=== PATIENT | female | born 1945 | race Caucasian/White ===

== ENCOUNTER → 2016-10-11 | Outpatient (CLI) | payer BC, OTHER ==
[~2016-10-11] MED LIST: CHOL1TAB42 PO; FOLI1TAB8 PO; INSPMPHMLG; LEVO100T7 PO; SENNTAB23 PO
[2016-10-11 14:31] LABS: MEAN CELL VOLUME 86.4 fL (80-100); MEAN CORPUSCULAR HEMOGLOBIN 28.5 pg (25-34); MEAN PLATELET VOLUME 11.2 fL (7.4-10.4); PLATELET COUNT 250 K/uL (130-400); RED BLOOD COUNT 4.28 M/uL (4.2-5.4); WHITE BLOOD COUNT 6.38 K/uL (4.8-10.8)
[2016-10-11 14:51] LABS: URINE APPEARANCE CLEAR (CLEAR); URINE BILIRUBIN NEG (NEG); URINE COLOR YELLOW; URINE NITRITE NEG (NEG); URINE SPECIFIC GRAVITY 1.008 (1.000-1.030); UROBILINOGEN NEG (NEG)
[2016-10-11 14:57] LABS: MANUAL MICROSCOPIC REQUIRED? NO; REVIEW REQ? NO
[2016-10-11 15:02] LABS: URINE PROTIEN/CREAT RATIO 0.1 (0-0.2); URINE TOTAL PROTEIN 12.4 mg/dl (0-11.9)
[2016-10-11 15:16] LABS: BLOOD UREA NITROGEN 31 mg/dl (7-18); BUN/CREATININE RATIO 18.2 (10-20); CALCIUM 8.3 mg/dl (8.5-10.1); CARBON DIOXIDE 26 mmol/L (21-32); CHLORIDE 99 mmol/L (98-107); GLUCOSE 153 mg/dl (70-99); POTASSIUM 4.2 mmol/L (3.5-5.1); SODIUM 136 mmol/L (136-145)
[2016-10-11 15:17] LABS: PHOSPHORUS 3.7 mg/dl (2.5-4.9)
== END | disposition home or self-care (01) ==
LOC: C.LAB1850 13:32
PROVIDERS: ATTEND Internal Medicine Nephrology
DX: E55.9 Vitamin D deficiency, unspecified (principal); R80.9 Proteinuria, unspecified; I12.9 Hypertensive chronic kidney disease with stage 1 through stage 4 chronic kidney disease, or unspecified chronic kidney disease; N18.3 Chronic kidney disease, stage 3 (moderate)

== ENCOUNTER → 2017-04-07 | Outpatient (CLI) | payer BC, OTHER ==
[~2017-04-07] MED LIST changes: +FOLI1TAB7 PO; -FOLI1TAB8 PO
[2017-04-07 12:04] LABS: HEMATOCRIT 36.8 % (37-47); MEAN CELL VOLUME 89.3 fL (80-100); MEAN CORPUSCULAR HEMOGLOBIN 29.1 pg (25-34); MEAN CORPUSCULAR HGB CONC 32.6 g/dl (32-36); MEAN PLATELET VOLUME 11.3 fL (7.4-10.4); PLATELET COUNT 268 K/uL (130-400); RED BLOOD COUNT 4.12 M/uL (4.2-5.4); WHITE BLOOD COUNT 6.09 K/uL (4.8-10.8)
[2017-04-07 12:09] LABS: URINE APPEARANCE CLEAR (CLEAR); URINE BILIRUBIN NEG (NEG); URINE COLOR YELLOW; URINE NITRITE NEG (NEG); URINE SPECIFIC GRAVITY 1.035 (1.000-1.030); UROBILINOGEN NEG (NEG)
[2017-04-07 12:22] LABS: MANUAL MICROSCOPIC REQUIRED? NO; REVIEW REQ? NO
[2017-04-07 12:32] LABS: URINE PROTIEN/CREAT RATIO 0.1 (0-0.2)
[2017-04-07 12:33] LABS: BLOOD UREA NITROGEN 34 mg/dl (7-18); BUN/CREATININE RATIO 22.3 (10-20); CALCIUM 8.5 mg/dl (8.5-10.1); CARBON DIOXIDE 26 mmol/L (21-32); CHLORIDE 101 mmol/L (98-107); GLUCOSE 410 mg/dl (70-99); PHOSPHORUS 4.7 mg/dl (2.5-4.9); POTASSIUM 4.7 mmol/L (3.5-5.1); SODIUM 134 mmol/L (136-145)
[2017-04-07 12:47] LABS: BETA-HYDROXYBUTYRATE 1.56 mg/dL (0.2-2.81)
== END | disposition home or self-care (01) ==
LOC: C.LAB1850 10:16
PROVIDERS: ATTEND Internal Medicine Nephrology
DX: E55.9 Vitamin D deficiency, unspecified (principal); R80.9 Proteinuria, unspecified; N18.3 Chronic kidney disease, stage 3 (moderate); I12.9 Hypertensive chronic kidney disease with stage 1 through stage 4 chronic kidney disease, or unspecified chronic kidney disease

== ENCOUNTER → 2017-07-13 | Outpatient (CLI) | payer BC, OTHER ==
--- NOTE | 2017-07-14 08:29 | MAMMOGRAPHY REPORT ---
UNILATERAL LEFT DIGITAL SCREENING MAMMOGRAM TOMOSYNTHESIS WITH CAD: 07/13/2017 CLINICAL HISTORY: Asymptomatic. Personal history of breast cancer. TECHNIQUE: Breast tomosynthesis in addition to standard 2D mammography was performed. Current study was also evaluated with a Computer Aided Detection (CAD) system. COMPARISON: Comparison is made to exams dated: 07/05/2016 mammogram, 07/01/2015 mammogram, 06/30/2014 m ammogram, 06/28/2013 mammogram, 06/26/2012 mammogram, and 06/24/2011 mammogram - [facility] enter. BREAST COMPOSITION: There are scattered areas of fibroglandular density in the left breast. FINDINGS: There are no suspicious masses, calcifications, or areas of architectural distortion noted in the left breast. There has been no significant interval change compared to prior exams. Scatter ed benign-appearing calcifications are stable. IMPRESSION: ACR BI-RADS CATEGORY 2: BENIGN There is no mammographic evidence of malignancy in the left breast. A 1 year screening mammogram is r ecommended. The patient will receive written notification of the results. Approximately 10% of breast cancers are not detected with mammography. A negative mammographic report should not delay biopsy if a clinically suggestive mass is present. Mary Elliott M.D. ah/:07/13/2017 15:12:37 Accounts Payable Or Receivable Clerk: Patience DIAZ)(), [facility] letter sent: Normal 1/2 BI-RADS Code: ACR BI-RADS Category 2: Benign
== END | disposition home or self-care (01) ==
LOC: C.MAMM 14:41
PROVIDERS: ATTEND Family Medicine
DX: Z12.31 Encounter for screening mammogram for malignant neoplasm of breast (principal); Z85.3 Personal history of malignant neoplasm of breast

== ENCOUNTER → 2017-10-11 | Outpatient (CLI) | payer OTHER ==
[~2017-10-11] MED LIST changes: +CIPR-255 PO; -FOLI1TAB7 PO; +FOLI1TAB8 PO; +LEVO100T PO; +METR-163 PO
[2017-10-11 14:36] LABS: HEMATOCRIT 35.4 % (37-47); HEMOGLOBIN 11.8 g/dL (12.0-16.0); MEAN CELL VOLUME 88.9 fL (80-100); MEAN CORPUSCULAR HEMOGLOBIN 29.6 pg (25-34); MEAN CORPUSCULAR HGB CONC 33.3 g/dl (32-36); MEAN PLATELET VOLUME 11.5 fL (7.4-10.4); PLATELET COUNT 300 K/uL (130-400); RED CELL DISTRIBUTION WIDTH SD 42.2 fL (36.4-46.3)
[2017-10-11 15:58] LABS: ALBUMIN 3.5 gm/dl (3.4-5.0); BLOOD UREA NITROGEN 32 mg/dl (7-18); CALCIUM 8.3 mg/dl (8.5-10.1); CARBON DIOXIDE 27 mmol/L (21-32); CREATININE 1.38 mg/dl (0.60-1.20); GLUCOSE 174 mg/dl (70-99); POTASSIUM 4.2 mmol/L (3.5-5.1); SODIUM 135 mmol/L (136-145)
[2017-10-11 16:01] LABS: PHOSPHORUS 3.9 mg/dl (2.5-4.9)
== END | disposition home or self-care (01) ==
LOC: C.LAB1850 12:41
PROVIDERS: ATTEND Internal Medicine Nephrology
DX: E55.9 Vitamin D deficiency, unspecified (principal); I12.9 Hypertensive chronic kidney disease with stage 1 through stage 4 chronic kidney disease, or unspecified chronic kidney disease; E11.22 Type 2 diabetes mellitus with diabetic chronic kidney disease; N18.3 Chronic kidney disease, stage 3 (moderate); R31.9 Hematuria, unspecified; R80.9 Proteinuria, unspecified

== ENCOUNTER 2018-05-31 14:34 | Emergency (ER) | payer OTHER ==
[~2018-05-31] VITALS: Ht 162.6 cm; Wt 67.5 kg
[~2018-05-31 14:34] MED LIST changes: -CIPR-255 PO; -LEVO100T PO; -METR-163 PO
[2018-05-31 14:41] VITALS: TEMP 36.8; Ht 162.6 cm; Wt 67.5 kg
[2018-05-31] MEDS ORDERED: ONDANSETRON 4MG OD TAB PO STA (15:48)
--- NOTE | 2018-05-31 15:54 | EMERGENCY ROOM VISIT NOTE ---
History First contact with patient: 15:22 Chief Complaint: ABDOMINAL PAIN Stated Complaint: LOWER ABDOMINAL PAIN,NAUSEA,DIARRHEA FOR 11 DAYS History of Present Illness The patient is a 72 year old female who presents to the Emergency Room with complaints of non bloody diarrhea x 11 days. She was at a scientologist overnight function at [facility] approx 3 weeks ago. When she returned home that's when her loose stools started. She reports having 3 bowel movements per day. She denies any recent antibiotic use. No travel outside of [place]. She hasn't been eating any new foods. She has been excluding diary at the advice of her PCP. She presents to the ER for nausea which she interpreted as a worsening of her condition. She has started eating regular meals on Monday and has experienced a worsening of of loose stools. She did have outpatient stool testing for C Diff . Giardia and Salmonella that was negative. PMHx: C Diff (resolved), DM1, Breast CA. PSHx: Cholecystectomy. ROS: Tired, nauseous, no fevers, no chills, no significant abdominal pain, no vomiting, no hemoptysis. Review of Systems See HPI for pertinent positives and negatives. A total of ten systems were reviewed and were otherwise negative. Constitutional: No fever, No chills, No weight loss ENT: No hearing loss Respiratory: No cough, No sputum, No shortness of breath, No dyspnea on exertion Cardiovascular: No chest pain Abdomen: + diarrhea, No pain, No nausea, No vomiting, No constipation Genitourinary - Female: No dysuria, No urinary frequency, No urinary urgency , No urinary incontinence, No urinary retention Neurologic: No memory loss Endocrine: No fatigue Past Medical/Surgical History Medical Problems: (1) Breast cancer (2) CKD (chronic kidney disease), stage III (3) DKA (diabetic ketoacidoses) (4) DM type 1 (diabetes mellitus, type 1) (5) Hypothyroidism (6) Osteoporosis (7) Pubic bone fracture (8) Sepsis (9) Vitamin D deficiency Surgical Problems: (1) H/O section (2) H/O umbilical hernia repair (3) S/P cataract surgery (4) S/P laparoscopic cholecystectomy (5) S/P mastectomy Family History Diabetes mellitus SISTER (type 1) SON (type 1) AUNT FH: COPD (chronic obstructive pulmonary disease) FATHER FH: cancer FH: gallbladder disease Hypertension Social History Smoking Status: Never Smoker Alcohol Use: none Drug Use: none Marital Status: Housing Status: lives with family Occupation Status: retired Current/Historical Medications Scheduled Cholecalciferol (Vitamin D), 1 TAB PO QAM Ciprofloxacin Hcl (Cipro), 500 MG PO BID Folic Acid (Folvite), 1 MG PO QAM Insulin Human Lispro (Insulin Humalog Pump ), 1 EA N/A UD Levothyroxine Sodium (Levothyroxine Sodium), 1 TAB PO 6XWK Levothyroxine Sodium (Synthroid), 50 MCG PO WK Metronidazole (Flagyl), 500 MG PO TID Sennosides-Docusate Sodium (Stool Softener), 1 TAB PO QAM Physical Exam Vital Signs Date Time Temp Pulse Resp B/P (MAP) Pulse Ox O2 Delivery O2 Flow Rate FiO2 05/31/18 18:30 82 17 122/64 99 Room Air 05/31/18 16:55 79 18 122/64 98 Room Air 05/31/18 14:41 36.8 82 20 168/82 99 Room Air Physical Exam Gen: No acute distress. HEENT: Head - normocephalic and atraumatic. Pupils are equal, round, and reactive to light. Extraocular eye muscles are intact and sclera are anicteric. Ears - bilaterally patent canals with noninjected tympanic membranes and no evidence of hemotympanum. Nose - moist nasal mucosa without discharge. Mouth - moist buccal mucosa. Oropharynx is nonerythematous and there is no tonsillar exudate or edema noted. Neck: Supple; no JVD, nuchal rigidity, cervical lymphadenopathy, or auscultated bruits. Heart: Regular rate and rhythm. There is a normal S1 and S2 with no murmurs, clicks, or gallops appreciated. Lungs: Clear to auscultation bilaterally with no wheezes, rales, or rhonchi. Abdomen: Soft, completely nontender, nondistended, with good bowel sounds. There are no palpable pulsatile masses or hepatosplenomegaly. There is no guarding, rigidity. There may be slight rebound in the LLQ. There is a Glucometer attached to the subcutaneous space. Extremities: No evidence of cyanosis, clubbing, or edema. There are easily palpable peripheral pulses. Neuro:The patient is awake and alert, oriented to day, time, and place. Muscle strength is 5/5 in all 4 extremities. The patient has equal research program manager strength and equal pedal push and pull. There are no cerebellar signs. Medical Decision & Procedures ER Provider Diagnostic Interpretation: ABD/PELVIS IV AND ORAL CONT CLINICAL HISTORY: 72 years-old Female presenting with Diarrhea x 11 days, ?rebound tenderness in LLQ. TECHNIQUE: Multidetector CT of the abdomen and pelvis was performed after the administration of oral and intravenous contrast. IV contrast: 117 mL of Optiray 320. A dose lowering technique was used consistent with the principles of ALARA (as low as reasonably achievable). COMPARISON: 03/26/2016. CT DOSE (mGy.cm): The estimated cumulative dose is 622.38 mGy.cm. FINDINGS: Vb Net Developer topogram: Cholecystectomy clips. Lung bases: Mosaic attenuation suggest small airways disease. Minimal dependent changes likely atelectasis. Normal heart size. No pericardial or pleural effusion. Liver: Normal morphology. No liver lesion. Patent hepatic vasculature. Biliary: Moderate biliary ductal prominence likely a reservoir effect in the post cholecystectomy state. Gallbladder surgically absent. Pancreas: Moderate parenchymal atrophy. Spleen: Parenchymal calcification suggest a history of granulomatous infection. Splenule noted. Adrenal glands: Normal. Kidneys and ureters: Few subcentimeter well-defined hypodensities due to small to characterize but likely cysts. No nephrolithiasis. No hydronephrosis. Excreted contrast noted in the calyces bilaterally. Ureters nondistended. Bladder: Normal. Pelvic organs: Uterus and ovaries normal. Bowel: Circumferential wall thickening of the rectum with mucosal hyperenhancement. Wall thickening extends proximally to the cecum though this may not be in a contiguous manner with sparing of the proximal sigmoid and mid transverse colon. Prominence of the vasa recta may suggest chronicity. The appendix is normal. No bowel obstruction. Terminal ileum normal. No gross evidence of small bowel wall thickening. No perienteric or pericolonic inflammatory change. Small hiatal hernia with gastroesophageal reflux suggested. Peritoneal cavity: No free fluid or intraperitoneal gas. Lymph nodes: No enlarged lymph nodes in the abdomen or pelvis. Vasculature: Atherosclerosis of the normal caliber abdominal aorta. IVC patent. Abdominal wall: Small fat-containing umbilical hernia. The patient may be status post right mastectomy. Musculoskeletal: Degenerative changes of the spine. Osteopenia. Degenerative changes of the sacroiliac joints. IMPRESSION: 1. Circumferential wall thickening and mucosal hyperenhancement of nearly the entire colon. This suggests an extensive inflammatory or infectious colitis. Prominence of the vasa recta could suggest chronicity. Correlate for a history of inflammatory bowel disease. 2. Cholecystectomy. Laboratory Results 05/31/18 15:50 Red Blood Count 3.99, Mean Corpuscular Volume 88.5, Mean Corpuscular Hemoglobin 29.1, Mean Corpuscular Hemoglobin Concent 32.9, Mean Platelet Volume 10.7, Neutrophils (%) (Auto) 60.2, Lymphocytes (%) (Auto) 25.6, Monocytes (%) (Auto) 10.1, Eosinophils (%) (Auto) 3.6, Basophils (%) (Auto) 0.5, Neutrophils # (Auto ) 3.81, Lymphocytes # (Auto) 1.62, Monocytes # (Auto) 0.64, Eosinophils # (Auto ) 0.23, Basophils # (Auto) 0.03 05/31/18 15:50 Test 05/31/18 15:50 05/31/18 17:25 White Blood Count 6.33 K/uL (4.8-10.8) Red Blood Count 3.99 M/uL (4.2-5.4) Hemoglobin 11.6 g/dL (12.0-16.0) Hematocrit 35.3 % (37-47) Mean Corpuscular Volume 88.5 fL (80-100) Mean Corpuscular Hemoglobin 29.1 pg (25-34) Mean Corpuscular Hemoglobin Concent 32.9 g/dl (32-36) Platelet Count 285 K/uL (130-400) Mean Platelet Volume 10.7 fL (7.4-10.4) Neutrophils (%) (Auto) 60.2 % Lymphocytes (%) (Auto) 25.6 % Monocytes (%) (Auto) 10.1 % Eosinophils (%) (Auto) 3.6 % Basophils (%) (Auto) 0.5 % Neutrophils # (Auto) 3.81 K/uL (1.4-6.5) Lymphocytes # (Auto) 1.62 K/uL (1.2-3.4) Monocytes # (Auto) 0.64 K/uL (0.11-0.59) Eosinophils # (Auto) 0.23 K/uL (0-0.5) Basophils # (Auto) 0.03 K/uL (0-0.2) RDW Standard Deviation 41.5 fL (36.4-46.3) RDW Coefficient of Variation 12.8 % (11.5-14.5) Immature Granulocyte % (Auto) 0.0 % Immature Granulocyte # (Auto) 0.00 K/uL (0.00-0.02) Anion Gap 7.0 mmol/L (3-11) Est Creatinine Clear Calc Drug Dose 36.1 ml/min Estimated GFR () 45.7 Estimated GFR (Non- 39.4 BUN/Creatinine Ratio 15.4 (10-20) Calcium Level 7.8 mg/dl (8.5-10.1) Magnesium Level 1.8 mg/dl (1.8-2.4) Total Bilirubin 0.4 mg/dl (0.2-1) Aspartate Amino Transf (AST/SGOT) 43 U/L (15-37) Alanine Aminotransferase (ALT/SGPT) 76 U/L (12-78) Alkaline Phosphatase 169 U/L (45-117) Total Protein 7.3 gm/dl (6.4-8.2) Albumin 3.3 gm/dl (3.4-5.0) Globulin 4.0 gm/dl (2.5-4.0) Albumin/Globulin Ratio 0.8 (0.9-2) Date/Time Source Procedure Growth Status 05/31/18 17:25 Stool C.difficile Toxin B Gene (PCR) - Final No C. difficile toxin B gene detected Complete Medications Administered Medications (Trade) Dose Ordered Sig/Leidy Route Start Time Stop Time Status Last Admin Dose Admin Ondansetron HCl (Zofran Odt) 4 mg NOW STAT PO 05/31/18 15:48 05/31/18 15:52 DC 05/31/18 16:42 4 MG Ciprofloxacin (Cipro Tab) 500 mg NOW STAT PO 05/31/18 19:49 05/31/18 19:50 DC 05/31/18 19:59 500 MG Metronidazole (Flagyl Tab) 500 mg NOW STAT PO 05/31/18 19:49 05/31/18 19:50 DC 05/31/18 19:59 500 MG Medical Decision The patient's care and disposition was discussed with Dr. Washington, Attending ED Physician. This is a 72F with non bloody loose stools x 11 days. Differential diagnosis include gastroenteritis, C. Diff, Giardia, Salmonella, food borne illness, infections, obstruction, pancreatitis, appendicitis, diverticulitis, inflammatory bowel disease, GI bleed, biliary pathology, toxicologic as well as others were entertained. Triage Nursing notes were reviewed. ED Course included an extensive history and physical exam, labs, CT Scan of the Abdomen & Pelvis with IV and Oral contrast. 3:30PM - Pt was seen and examined at bedside. 3:34PM - Case discussed with Attending and initial orders were placed. 4mg Zofran given for nausea. We will also order a CT Abdomen and Pelvis with IV and Oral Contrast. 7:30PM - Results reviewed and discussed with patient. --- Hemoglobin is low but is at baseline. --- No WBC count. --- Vital signs stable. --- Creatinine is 1.35 but this also appears to be the patient baseline. --- The CT Scan shows an inflammatory colitis of the entire colon. (see above report) -- 1L NSS bolus was ordered for the patient. -- C Diff and Rotavirus are negative. Other stool studies are pending. 7:45pm - Pt was updated on results. We will give one 500mg Cipro and 500mg Flagyl here in the ER because I'm unsure if she will be able to pick the Rx up before her pharmacy closes. After discussion with Dr. Lee, we decided on a ten day course of Cipro 500mg PO BID and Flagyl 500mg PO TID x 10 days. Pt will also be discharged on a Zofran home pack. Pt reiterates she has no history of diarrhea or abdominal pain prior to this episode and has no family history of IBD such as Crohn's or Ulcerative Colitis. Pt is hungry. She was advised to stick to a bland diet until her symptoms disappear. The pt was informed about the findings as listed above. All questions were answered. Return instructions were outlined and the patient was discharged in good condition. The patient was referred to PCP for recheck of the current condition early next week. Head Trauma GCS Score: 15 Impression Primary Impression: Diarrhea Departure Information Dispostion Home / Self-Care Condition GOOD Prescriptions Metronidazole (Flagyl) 500 Mg Tab 500 MG PO TID for 10 Days, #30 TAB Prov: Dileep Fish M.D. 05/31/18 Ciprofloxacin Hcl (CIPRO) 500 Mg Tab 500 MG PO BID for 10 Days, #20 TAB Prov: Dileep Fish M.D. 05/31/18 Referrals Omar Virgen M.D. (PCP) Patient Instructions Ciprofloxacin tablets, Diarrhea, Metronidazole tablets or capsules, My [facility] Additional Instructions Your CT Scan showed a diffuse inflammation of the colon. It is unclear what caused this inflammation. The C. Diff test is negative. Additional stool culture results are also pending. The results should be back within 2-3 days. Your family physician will be able to access these records. We recommend following up with your Primary Care Doctor early next week. A prescription for Ciprofloxacin and Metronidazole will be sent to your pharmacy. Information on these medications will be printed for you on discharge. Please read these carefully. We recommend restarting a (bland) BRAT diet. Please also stay well hydrated. You will also be given a home pack of Zofran that you can take for nausea. Your family doctor can renew this prescription for you. Resident Involvement: Resident Care Provided Care Provided: Adult ED
[2018-05-31] MEDS ORDERED: OPTIRAY 320 IV PRN (16:00)
[2018-05-31 16:11] LABS: BASO % 0.5 %; BASO ABS # 0.03 K/uL (0-0.2); EOS % 3.6 %; EOS ABS # 0.23 K/uL (0-0.5); HEMATOCRIT 35.3 % (37-47); HEMOGLOBIN 11.6 g/dL (12.0-16.0); LYMPH % 25.6 %; LYMPH ABS # 1.62 K/uL (1.2-3.4); MEAN CELL VOLUME 88.5 fL (80-100); MEAN CORPUSCULAR HEMOGLOBIN 29.1 pg (25-34); MEAN CORPUSCULAR HGB CONC 32.9 g/dl (32-36); MEAN PLATELET VOLUME 10.7 fL (7.4-10.4); MONO % 10.1 %; MONO ABS # 0.64 K/uL (0.11-0.59); NEUT % 60.2 %; NEUT ABS # 3.81 K/uL (1.4-6.5); PLATELET COUNT 285 K/uL (130-400); RED CELL DISTRIBUTION WIDTH CV 12.8 % (11.5-14.5); RED CELL DISTRIBUTION WIDTH SD 41.5 fL (36.4-46.3); WHITE BLOOD COUNT 6.33 K/uL (4.8-10.8)
[2018-05-31] MEDS ORDERED: LEVO100T PO (16:30)
[2018-05-31 16:31] LABS: ALBUMIN 3.3 gm/dl (3.4-5.0); CALCIUM 7.8 mg/dl (8.5-10.1); CREATININE 1.35 mg/dl (0.60-1.20); POTASSIUM 3.9 mmol/L (3.5-5.1); TOTAL PROTEIN 7.3 gm/dl (6.4-8.2)
--- NOTE | 2018-05-31 18:31 | EMERGENCY ROOM VISIT NOTE ---
ED Visit Note First contact with patient: 15:22 The patient was seen by our third-year resident, I was involved in the patient' s case. I did examine the patient and spoke with her about recent events. Please see the resident's note. The patient presents with diarrhea for around 11 days. She has had outpatient stool testing which has returned unremarkable. She thought she was feeling better for a while and started to advance her diet and now again is having diarrhea and some abdominal cramps as well as nausea. She presents for evaluation as directed by her doctor's office. Today, her laboratory work is unrevealing, her stool cultures and stool C. difficile testing is pending. Her stool ova and parasite testing is pending. Because of the persistent symptoms, a CT of the abdomen and pelvis has been ordered, this result is currently pending. The patient appears stable presently. Her disposition will weigh heavily on the results of the stool C. difficile test and the CT study. Please see the disposition as outlined by our third year resident.
--- NOTE | 2018-05-31 18:52 | DIAGNOSTIC IMAGING REPORT ---
ABD/PELVIS IV AND ORAL CONT CLINICAL HISTORY: 72 years-old Female presenting with Diarrhea x 11 days, ?rebound tenderness in LLQ. TECHNIQUE: Multidetector CT of the abdomen and pelvis was performed after the administration of oral and intravenous contrast. IV contrast: 117 mL of Optiray 320. A dose lowering technique was used consistent with the principles of ALARA (as low as reasonably achievable). COMPARISON: 03/26/2016. CT DOSE (mGy.cm): The estimated cumulative dose is 622.38 mGy.cm. FINDINGS: C++ Quant Developer topogram: Cholecystectomy clips. Lung bases: Mosaic attenuation suggest small airways disease. Minimal dependent changes likely atelectasis. Normal heart size. No pericardial or pleural effusion. Liver: Normal morphology. No liver lesion. Patent hepatic vasculature. Biliary: Moderate biliary ductal prominence likely a reservoir effect in the post cholecystectomy state. Gallbladder surgically absent. Pancreas: Moderate parenchymal atrophy. Spleen: Parenchymal calcification suggest a history of granulomatous infection. Splenule noted. Adrenal glands: Normal. Kidneys and ureters: Few subcentimeter well-defined hypodensities due to small to characterize but likely cysts. No nephrolithiasis. No hydronephrosis. Excreted contrast noted in the calyces bilaterally. Ureters nondistended. Bladder: Normal. Pelvic organs: Uterus and ovaries normal. Bowel: Circumferential wall thickening of the rectum with mucosal hyperenhancement. Wall thickening extends proximally to the cecum though this may not be in a contiguous manner with sparing of the proximal sigmoid and mid transverse colon. Prominence of the vasa recta may suggest chronicity. The appendix is normal. No bowel obstruction. Terminal ileum normal. No gross evidence of small bowel wall thickening. No perienteric or pericolonic inflammatory change. Small hiatal hernia with gastroesophageal reflux suggested. Peritoneal cavity: No free fluid or intraperitoneal gas. Lymph nodes: No enlarged lymph nodes in the abdomen or pelvis. Vasculature: Atherosclerosis of the normal caliber abdominal aorta. IVC patent. Abdominal wall: Small fat-containing umbilical hernia. The patient may be status post right mastectomy. Musculoskeletal: Degenerative changes of the spine. Osteopenia. Degenerative changes of the sacroiliac joints. IMPRESSION: 1. Circumferential wall thickening and mucosal hyperenhancement of nearly the entire colon. This suggests an extensive inflammatory or infectious colitis. Prominence of the vasa recta could suggest chronicity. Correlate for a history of inflammatory bowel disease. 2. Cholecystectomy. Electronically signed by: Facundo Hull M.D. 05/31/2018 6:50 PM Dictated Date/Time: 05/31/2018 6:43 PM
[2018-05-31] MEDS ORDERED: SODIUM CHLORIDE 0.9% 1000ML 1,000 ML IV STA (19:20)
[2018-05-31] MEDS ORDERED: METRONIDAZOLE 250 MG TAB PO STA (19:49)
[2018-05-31] MEDS ORDERED: CIPROFLOXACIN 500 MG TAB PO STA (19:49)
[2018-05-31] MEDS ORDERED: CIPR-255 PO (19:54)
[2018-05-31] MEDS ORDERED: METR-163 PO (19:54)
[2018-05-31] MEDS ORDERED: ONDANSETRON HOME PACK 4MG OD TAB PO ONE (20:00)
[2018-05-31 20:14] VITALS: BP 107/63; PULSE 85; O2SAT 97
== END 2018-05-31 20:17 | disposition home or self-care (01) ==
LOC: C.EDB 14:36 → C.EDC 20:17
DX: R19.7 Diarrhea, unspecified (principal); E10.22 Type 1 diabetes mellitus with diabetic chronic kidney disease; N18.3 Chronic kidney disease, stage 3 (moderate); E03.9 Hypothyroidism, unspecified; Z90.49 Acquired absence of other specified parts of digestive tract; Z79.899 Other long term (current) drug therapy; Z79.4 Long term (current) use of insulin; Z83.79 Family history of other diseases of the digestive system

== ENCOUNTER 2019-10-21 11:46 | Observation (INO) ==
[2019-10-21 12:37] LABS: Basophils # (auto) 0.03 K/uL (0-0.2); Basophils % (auto) 0.3 %; Eosinophils # (auto) 0.06 K/uL (0-0.5); Eosinophils % (auto) 0.6 %; Hematocrit (blood only) 40.2 % (37-47); Hemoglobin 13.4 g/dL (12.0-16.0); Immature Granulocytes # (auto) 0.02 K/uL (0.00-0.02); Immature Granulocytes % (auto) 0.2 %; Lymphocytes # (auto) 1.34 K/uL (1.2-3.4); Mean Corpuscular Hemoglobin 29.5 pg (25-34); Mean Corpuscular Hgb Conc 33.3 g/dL (32-36); Mean Corpuscular Volume 88.5 fL (80-100); Mean Platelet Volume 10.5 fL (7.4-10.4); Monocytes # (auto) 0.44 K/uL (0.11-0.59); Monocytes % (auto) 4.6 %; Neutrophils # (auto) 7.65 K/uL (1.4-6.5); Neutrophils % (auto) 80.3 %; Platelet Count 280 K/uL (130-400); RDW Coefficient of Variation 13.5 % (11.5-14.5); RDW Standard Deviation 43.7 fL (36.4-46.3); Red Blood Count 4.54 M/uL (4.2-5.4); White Blood Count 9.54 K/uL (4.8-10.8)
--- NOTE | 2019-10-21 12:39 | XRay Report ---
SINGLE VIEW CHEST CLINICAL HISTORY: Atypical chest pain. FINDINGS: An AP, portable, upright chest radiograph is compared to study dated 04/19/2016. The cardiom ediastinal silhouette is unremarkable noting atherosclerotic calcification of the thoracic aorta. Stuart cified metastatic lymph nodes are incidentally noted. Chronic interstitial thickening is similar to p revious. No airspace consolidation or large pleural effusion is identified. No pneumothorax is seen. The skeletal structures are osteopenic. Chronic posttraumatic and postoperative change is noted in th e right humerus. IMPRESSION: No active disease in the chest. ACT 112: Negative or not required by law. Electronically signed by: Quincy Barreto M.D. 10/21/2019 12:38 PM
[2019-10-21 12:51] LABS: Partial Thromboplastin Ratio 0.9; Partial Thromboplastin Time 23.9 Seconds (21.0-31.0); Prothrombin Time 10.3 Seconds (9.0-12.0)
[2019-10-21] MEDS ORDERED: ASPIRIN CHEW 324 MG PO STA (13:00)
[2019-10-21] MEDS ORDERED: SODIUM CHLORIDE 0.9% 1000ML 500 ML IV ONE (13:00)
[2019-10-21 13:02] LABS: Alanine Aminotransferase 29 U/L (12-78); Albumin Globulin Ratio 0.8 (0.9-2); Albumin Level 3.5 gm/dl (3.4-5.0); Alkaline Phosphatase 90 U/L (45-117); BUN Creatinine Ratio 19.4 (10-20); Bilirubin,Total 0.7 mg/dl (0.2-1); Blood Urea Nitrogen 34 mg/dl (7-18); Calcium 8.5 mg/dl (8.5-10.1); Carbon Dioxide 27 mmol/L (21-32); Chloride 101 mmol/L (98-107); Est GFR (African American) 33.6; Globulin 4.2 gm/dl (2.5-4.0); Glucose 276 mg/dl (70-99); Sodium 133 mmol/L (136-145); Total Protein 7.7 gm/dl (6.4-8.2); Troponin I < 0.015 ng/ml (0-0.045)
[2019-10-21 13:40] LABS: Potassium 4.7 mmol/L (3.5-5.1)
[2019-10-21 13:46] LABS: Magnesium 2.3 mg/dl (1.8-2.4)
[2019-10-21] MEDS ORDERED: NITROGLYCERIN 2% OINTMENT 30GM TUBE EXT STA (14:36)
--- NOTE | 2019-10-21 16:15 | Electrocardiogram Report ---
Test Reason : Blood Pressure : / mmHG Vent. Rate : 085 BPM Atrial Rate : 085 BPM P-R Int : 154 ms QRS Dur : 060 ms QT Int : 340 ms P-R-T Axes : 073 -15 068 degrees QTc Int : 404 ms Normal sinus rhythm Left atrial enlargement Borderline ECG When compared with ECG of 19-APR-2016 01:34, Left atrial enlargement now present Otherwise no significant change Confirmed by Juanpablo Mike ([id number]) on 10/21/2019 4:15:00 PM Referred By: REFERRED SELF Confirmed By:Juanpablo Mike
--- NOTE | 2019-10-21 16:16 | History & Physical Report ---
Date of Service October 21, 2019 Assessment & Plan (1) Weakness: (2) Chest tightness: This is a 73-year-old female who has significant past medical history of T1DM, CKD stage III, hypothyroidism, neuropathy, vitamin D deficiency, GERD, osteoporosis, history of breast cancer status post mastectomy and radiation in 2013 who presented to ED secondary to chest tightness while in the shower prior to arrival. 73 yr old F with complaints of weakness, chest tightness with radiation to L arm Risk factors include F, age, T1DM will admit for ACS r/o other potential etiology uncontrolled hyperglycemia, GERD, MSK admit to PCU cycle trop x 2 lipid panel and a1c in a.m. NPO after midnight exercise stress echo in am. (3) DM type 1 (diabetes mellitus, type 1): Uncontrolled, last A1c 06/2019 11.5 Repeat A1c in a.m. Patient insistent on using insulin pump while in house Consult glycemic pharmacist for assistance continue pump (4) Hypothyroidism: continue levothyroxine tsh pending (5) CKD (chronic kidney disease), stage III: last Cr 1.6 (06/2019) bun/cr 34/1.73 received IVF in ED will give additional 1L and repeat lab in a.m. (6) DVT prophylaxis: SCD/TEDS Disposition: admit to PCU Follow up: PCP Dr. Virgen upon discharge Patient was seen and examined in collaboration with Dr. Lozoya, please see ad dendum History of Present Illness Chief Complaint: Chest tightness that lasted 30 minutes this morning. Primary Care Provider: Omar Virgen MD This is a 73-year-old female who has significant past medical history of T1DM, CKD stage III, hypothyroidism, neuropathy, vitamin D deficiency, GERD, osteoporosis, history of breast cancer status post mastectomy and radiation in 2013 who presented to ED secondary to chest tightness while in the shower prior to arrival. Approximately 2 days ago she overall felt unwell, weak, had unusually high blood sugar, "I thought I was getting the flu." Yesterday she overall felt well. This morning when she was in the shower she had a, "hot sensation all throughout my body," had substernal chest tightness/pressure that radiated to left arm and back. She overall felt very unwell and when she got out of shower checked her blood sugar which was in 300s, again unusual for patient. During episode she denied any shortness of breath, palpitations, nausea, vomiting, lightheadedness, dizziness, syncope, cough, abdominal pain. She denies having similar symptoms in the past. Denies any recent illness, URI symptoms, change in bowel or bladder habits. She does admit to polydipsia and polyuria, but this is not unusual for her. Her appetite has been normal. No weight change. She has been taking medications as prescribed. When arrived at ED she did receive ASA and nitro which she feels improved her symptoms. She no longer has chest tightness, but when recently went up to walk to the bathroom she does feel weak. "I just feel like something is wrong." In ED lab work was relatively unremarkable except sodium 133, BUN 34, creatinine 1.73, glucose 276. Influenza was negative. Troponin WNL. Chest x-ray revealed no acute abnormality. In ED she received ASA and half an inch of Nitropaste. Symptoms did not improve. Her blood pressure remained on the soft side, but her normal blood pressure is in the low 100s. Allergies Allergy/AdvReac Type Severity Reaction Status Date / Time Sulfa (Sulfonamide Allergy Verified 10/21/19 13:45 Antibiotics) Home Medications Home Medications Medication Instructions Recorded Confirmed Type insulin lispro [Humalog U-100 1 sliding scale dose CONTINUOUS 09/15/15 10/21/19 History Insulin] SUBCUTANEOUS INFUSION UD #0 dose cholecalciferol (vitamin D3) 1,000 unit PO QAM #0 08/04/16 10/21/19 History folic acid 1 mg PO QAM #0 tab 08/04/16 10/21/19 History levothyroxine 100 mcg PO 6XWK 90 Days #0 tab 08/04/16 10/21/19 History sennosides-docusate sodium 1 tab PO QAM #0 08/04/16 10/21/19 History levothyroxine 50 mcg PO MONROY 90 Days #0 tab 05/31/18 10/21/19 History ibuprofen 200 mg PO Q6H PRN 04/04/19 10/21/19 History biotin 1 mg tablet 1 mg PO DAILY tab 08/01/19 10/21/19 History Past Med/Surg History Medical History Breast cancer (Chronic 07/30/14) "s/p mastectomy of right breast and radiation in 2014" CKD (chronic kidney disease), stage III (Chronic) DM type 1 (diabetes mellitus, type 1) (Chronic) Hypothyroidism (Chronic) Osteoporosis (Chronic) Vitamin D deficiency (Chronic) Surgical History H/O section (Resolved 01/04/13) H/O umbilical hernia repair (Chronic) S/P cataract surgery (Chronic) S/P laparoscopic cholecystectomy (Chronic) S/P mastectomy (Chronic) "right breast" Family History (Updated 10/21/19 @ 16:30 by Rebecca Lopez PA-C) Father COPD (chronic obstructive pulmonary disease) CHF (congestive heart failure) Mother Rheumatoid arthritis Son Type 1 diabetes mellitus Social History Preferred Language: French Communication Ability: Effective Tank Setter Required: No Beliefs That Will Affect Care: None marital status: Current Living Situation: Spouse Other Information That Helps Us Care for You: No Feels Safe at Home: Yes Safety Concerns: Feels Safe At This Time Smoking Status: Never smoker Do You Dip or Chew Tobacco: No ; Second Hand Exposure: No ; Hx Alcohol Use: No Hx Substance Use: No Review of Systems Review of Systems: All systems reviewed & are unremarkable except as noted in HPI & below Physical Exam Physical Exam: Constitutional: WD/WN, vitals as above, NAD, sitting up in bed, pleasant, conversing easily Head: Normocephalic, Atraumatic Eyes: PERRL, conjunctivae normal, anicteric sclerae ENMT: external ear and nose normal, oropharynx normal Neck: trachea midline, no thyromegaly normal visual inspection Respiratory: normal respiratory effort, lungs clear to auscultation, no wheeze, rales, rhonchi. Normal insp/exp effort, no accessory muscle use Cardiovascular: RRR, no murmur, no edema Vessels: no JVD or carotid bruit, Chest: normal inspection of chest Abdomen: normal bowel sounds, soft, nontender, no hepatosplenomegaly Musculoskeletal: no cyanosis or clubbing, extremities motor strength 5/5 Skin: no rashes, warm and dry normal turgor Neurologic: PERRL, EOMI, accommodation nl, no face palsy, no dysarthria CN's II-XI intact bilaterally and moves all extremities Psychiatric: A+Ox3, euthymic affect Lymphatic: no cervical or axillary lymphadenopathy : deferred Results & Data Vital Signs (Past 12 Hours) Vital Signs Temp Pulse Resp BP Pulse Ox 10/21/19 16:00 103/58 L 98 10/21/19 15:56 107/58 L 98 10/21/19 15:30 97/63 L 96 10/21/19 15:00 81 14 92/53 L 98 10/21/19 14:30 81 23 10/21/19 14:00 81 14 10/21/19 13:30 81 21 10/21/19 13:00 85 21 119/68 98 10/21/19 12:30 89 20 94/63 L 98 10/21/19 12:03 94 H 18 117/69 97 10/21/19 11:50 36.7 C 92 H 18 121/73 99 Laboratory Results Short CBC 10/21/19 10/21/19 Range/Units 12:17 12:17 WBC 9.54 (4.8-10.8) K/uL Hgb 13.4 (12.0-16.0) g/dL Hct 40.2 (37-47) % Plt Count 280 (130-400) K/uL Troponin I < 0.015 (0-0.045) ng/ml BMP 10/21/19 10/21/19 12:17 13:12 Sodium 133 L Potassium 4.7 Chloride 101 Carbon Dioxide 27 BUN 34 H Creatinine 1.73 H Glucose 276 H Calcium 8.5 Cardiac Enzymes 10/21/19 10/21/19 Range/Units 12:17 15:15 Troponin I < 0.015 < 0.015 (0-0.045) ng/ml Liver Function 10/21/19 10/21/19 Range/Units 12:17 13:12 Total Bilirubin 0.7 (0.2-1) mg/dl AST 18 (15-37) U/L ALT 29 (12-78) U/L Alkaline Phosphatase 90 (45-117) U/L Albumin 3.5 (3.4-5.0) gm/dl Diagnostic Findings FINDINGS: An AP, portable, upright chest radiograph is compared to study dated 04/19/2016. The cardiomediastinal silhouette is unremarkable noting atherosclerotic calcification of the thoracic aorta. Calcified metastatic lymph nodes are incidentally noted. Chronic interstitial thickening is similar to prev ious. No airspace consolidation or large pleural effusion is identified. No pneumothorax is seen. The skeletal structures are osteopenic. Chronic posttraumatic and postoperative change is noted in the right humerus. IMPRESSION: No active disease in the chest. Medications Administered Discontinued Medications Aspirin (Aspirin) 324 mg PO NOW STA Stop: 10/21/19 13:01 Last Admin: 10/21/19 13:18 Dose: 324 mg Documented by: [id number] Sodium Chloride (Nss 1000ml) 500 mls @ 999 mls/hr IV .Q31M ONE Stop: 10/21/19 13:30 Last Infusion: 10/21/19 14:00 Dose: 0 mls/hr Documented by: [id number] Admin: 10/21/19 13:18 Dose: 999 mls/hr Documented by: [id number] Nitroglycerin (Nitro-Bid 2%) 0.5 inch EXT NOW STA Stop: 10/21/19 14:37 Last Admin: 10/21/19 14:55 Dose: 0.5 inch Documented by: [id number] ECG Rate (beats per minute): 85 Rhythm: normal sinus Comparison ECG Date: from (04/2016) Code Status & VTE Plan Code Status Full Code VTE Prophylaxis Plan VTE Prophylaxis will be ordered: Yes Reason for no VTE drug order: Treatment not indicated Supervising Physician Co-Signing Physician Notes Pt was seen and examined. Agreed with Rebecca ARZATE exam, assessment, and plan. 73-year-old female who has significant past medical history of T1DM, CKD stage III, hypothyroidism, neuropathy, vitamin D deficiency, GERD, osteoporosis, hx breast cancer status post mastectomy and radiation in 2013 present to the ER with chest discomfort. Pt said that about 2 days ago she did not feel well. She said that she fell weak, running nose and congestion. Pt said that her URI symptoms improved. She said that today she felt a tightness discomfort in her chest. Denies any palpitation, dizziness and SOB. CXR showed no active disease in the chest. EKG showed no ischemic changes. Troponin negative x2. Will get an echo. Will make NPO after midnight for possible exercise stress echo in am. Will continue to monitor closely in tele. Devora, MD
[2019-10-21] MEDS ORDERED: ALUMINUM/MAGNESIUM SUSP 30 ML UDC PO PRN (16:38)
[2019-10-21] MEDS ORDERED: NON-FORMULARY MEDICATION (Insulin Lispro [Humalog U-100 Insulin] 1 sliding scale dose) continuous subcutaneous infusion SCH (16:38)
[2019-10-21] MEDS ORDERED: CARBOHYDRATES FOR HYPOGLYCEMIA PO PRN (16:38)
[2019-10-21] MEDS ORDERED: GLUCOSE 10 TABS/TUBE PO PRN (16:38)
[2019-10-21] MEDS ORDERED: DEXTROSE 50% 50 ML SYRINGE IV PRN (16:38)
[2019-10-21] MEDS ORDERED: GLUCOSE 40% GEL 15 GM TUBE PO PRN (16:38)
[2019-10-21] MEDS ORDERED: POLYETHYLENE (MIRALAX) 17 GM PACK PO PRN (16:38)
[2019-10-21] MEDS ORDERED: ONDANSETRON INJ 2 MG/ML 2 ML VIAL IV PRN (16:38)
[2019-10-21] MEDS ORDERED: GLUCAGON FOR INJ 1 MG VIAL SQ PRN (16:38)
[2019-10-21] MEDS ORDERED: ACETAMINOPHEN 325 MG TAB PO PRN (16:38)
[2019-10-21] MEDS ORDERED: PHARMACY GLYCEMIC MGMT CONSULT PRN (16:47)
[2019-10-21] MEDS ORDERED: SODIUM CHLORIDE 0.9% 1000ML 1,000 ML IV SCH (17:00)
[2019-10-21] MEDS ORDERED: INSULIN HUMAN LISPRO (humaLOG) 100 UNITS/ML VIAL SC PRN (17:00)
[2019-10-21 17:01] LABS: Thyroid Stimulating Hormone 5.62 uIu/ml (0.300-4.500)
[2019-10-21 17:15] LABS: T4 Free Thyroxine 0.87 ng/dl (0.8-1.6)
--- NOTE | 2019-10-21 18:11 | Emergency Department Note ---
Entered by Kirk Kumar acting as a scribe for History of Present Illness General Chief complaint: Cardiac Assessment Stated complaint: INCR BS, NAUSEA, WEAKNESS, PAIN IN UPPER BACK Time Seen by Provider: 10/21/19 12:41 Source: patient Limitations: no limitations History of Present Illness Onset (ago): day(s) 2 Pain Consistency: + intermittent Maximum Pain Intensity: 3 Current Pain Intensity: 3 Quality: + aching Relieved By: + other (nasal spray) Associated symptoms: + denies other symptoms (diarrhea), + nausea/vomiting (nausea. no vomiting) and + other (chest heaviness, raspy voice); no fever/chills (fever) Treatments prior to arrival: none The patient is a 73 year old female who presents to the Emergency Room with complaints of intermittent weakness starting two days ago. The patient states two days ago she had nausea, a sore throat, and felt tired. The patient states she thought her symptoms were gone yesterday. She states today she has a raspy voice and chest heaviness. She states she has been having SOB when moving and notes that is a little more than normal. She states she has felt weak. She states she has left arm achiness. She states the arm achiness is 3/10 in pain. She notes she has some achiness in between her shoulder blades in her back. She notes she has been using nasal spray to help her clear up her congestion. She states she does not think she has been drinking enough fluids. She states she did not take any medications today. The patient denies having fevers, diarrhea, and vomiting. She notes she has been around other people that have been sick. She states she has never had a heart attack before and denies having previous heart issues. Home Medications Home Medications Medication Instructions Recorded Confirmed Type insulin lispro [Humalog U-100 1 sliding scale dose CONTINUOUS 09/15/15 10/21/19 History Insulin] SUBCUTANEOUS INFUSION UD #0 dose cholecalciferol (vitamin D3) 1,000 unit PO QAM #0 08/04/16 10/21/19 History folic acid 1 mg PO QAM #0 tab 08/04/16 10/21/19 History levothyroxine 100 mcg PO 6XWK 90 Days #0 tab 08/04/16 10/21/19 History sennosides-docusate sodium 1 tab PO QAM #0 08/04/16 10/21/19 History levothyroxine 50 mcg PO MONROY 90 Days #0 tab 05/31/18 10/21/19 History ibuprofen 200 mg PO Q6H PRN 04/04/19 10/21/19 History biotin 1 mg tablet 1 mg PO DAILY tab 08/01/19 10/21/19 History Allergies Allergy/AdvReac Type Severity Reaction Status Date / Time Sulfa (Sulfonamide Allergy Verified 10/21/19 13:45 Antibiotics) Past Med/Surg History Medical History Breast cancer (Chronic 07/30/14) "s/p mastectomy of right breast and radiation in 2013" CKD (chronic kidney disease), stage III (Chronic) DM type 1 (diabetes mellitus, type 1) (Chronic) Hypothyroidism (Chronic) Osteoporosis (Chronic) Vitamin D deficiency (Chronic) Surgical History H/O section (Resolved 01/04/13) H/O umbilical hernia repair (Chronic) S/P cataract surgery (Chronic) S/P laparoscopic cholecystectomy (Chronic) S/P mastectomy (Chronic) "right breast" Family History (Updated 10/21/19 @ 16:30 by Rebecca Lopez PA-C) Father COPD (chronic obstructive pulmonary disease) CHF (congestive heart failure) Mother Rheumatoid arthritis Son Type 1 diabetes mellitus Social History Preferred Language: Upper Sorbian Communication Ability: Effective Service Member Required: No Beliefs That Will Affect Care: None marital status: Current Living Situation: Spouse Other Information That Helps Us Care for You: No Feels Safe at Home: Yes Safety Concerns: Feels Safe At This Time Smoking Status: Never smoker Do You Dip or Chew Tobacco: No ; Second Hand Exposure: No ; Hx Alcohol Use: No Hx Substance Use: No Review of Systems See HPI for pertinent positives & negatives. and A total of 10 systems reviewed and were otherwise negative Physical Exam Vital Signs Vital Signs - 24 hr 10/21/19 11:50 10/21/19 12:03 10/21/19 12:15 Temperature 36.7 C Temperature Source Oral Pulse Rate 92 H 94 H Pulse Rate from SpO2 Sensor Respiratory Rate 18 18 Respiratory Effort / Characteristics Non-Labored Respiratory Depth Normal Blood Pressure 121/73 117/69 Blood Pressure Mean 89 73 Pulse Oximetry 99 97 Oxygen Delivery Method Room Air Room Air Room Air Sepsis Recent Fever Within 48 Hours No Sepsis Action Taken by Nursing No Action Required 10/21/19 12:29 10/21/19 12:30 10/21/19 13:00 Temperature Temperature Source Pulse Rate 89 85 Pulse Rate from SpO2 Sensor Respiratory Rate 20 21 Respiratory Effort / Characteristics Respiratory Depth Blood Pressure 94/63 L 119/68 Blood Pressure Mean 66 77 Pulse Oximetry 98 98 Oxygen Delivery Method Room Air Room Air Room Air Sepsis Recent Fever Within 48 Hours Sepsis Action Taken by Nursing 10/21/19 13:30 10/21/19 14:00 10/21/19 14:30 Temperature Temperature Source Pulse Rate 81 81 81 Pulse Rate from SpO2 Sensor Respiratory Rate 21 14 23 Respiratory Effort / Characteristics Respiratory Depth Blood Pressure Blood Pressure Mean Pulse Oximetry Oxygen Delivery Method Sepsis Recent Fever Within 48 Hours Sepsis Action Taken by Nursing 10/21/19 15:00 10/21/19 15:30 Temperature Temperature Source Pulse Rate 81 Pulse Rate from SpO2 Sensor 82 83 Respiratory Rate 14 Respiratory Effort / Characteristics Respiratory Depth Blood Pressure 92/53 L 97/63 L Blood Pressure Mean 62 70 Pulse Oximetry 98 96 Oxygen Delivery Method Room Air Room Air Sepsis Recent Fever Within 48 Hours Sepsis Action Taken by Nursing GENERAL: Patient is in no acute distress. HEENT: No acute trauma, normocephalic atraumatic, mucous membranes moist, no nasal congestion, no scleral icterus. NECK: No stridor, no adenopathy, no meningismus, trachea is midline. LUNGS: Clear to auscultation bilaterally, no wheeze, no rhonchi, breath sounds equal. HEART: Without murmurs gallops or rubs, regular rate and rhythm. ABDOMEN: Soft, nontender, bowel sounds positive, no hernias, no peritonitis. EXTREMITIES: No cyanosis or edema, full range of motion of all the joints without pain or difficulty, no signs for acute trauma. NEUROLOGIC: Oriented x 3, no acute motor or sensory deficits, no focal weakness. SKIN: No rash, no jaundice, no diaphoresis. Course Course 1246: The patient was evaluated in room A12B, and a complete history and physical examination were performed. 1513: I reevaluated the patient. She states she feels better since the nitroglycerin. 1518: I spoke with Rebecca Lopez PA-C. Dr. Lozoya [facility] Hospitalist will evaluate the patient for further management. Administered Medications Sodium Chloride (Nss 1000ml) 1,000 mls @ 80 mls/hr IV .[id number] Stop: 10/22/19 05:29 Last Admin: 10/21/19 17:43 Dose: 80 mls/hr Documented by: [id number] Discontinued Medications Aspirin (Aspirin) 324 mg PO NOW STA Stop: 10/21/19 13:01 Last Admin: 10/21/19 13:18 Dose: 324 mg Documented by: [id number] Sodium Chloride (Nss 1000ml) 500 mls @ 999 mls/hr IV .Q31M ONE Stop: 10/21/19 13:30 Last Infusion: 10/21/19 14:00 Dose: 0 mls/hr Documented by: [id number] Admin: 10/21/19 13:18 Dose: 999 mls/hr Documented by: [id number] Nitroglycerin (Nitro-Bid 2%) 0.5 inch EXT NOW STA Stop: 10/21/19 14:37 Last Admin: 10/21/19 14:55 Dose: 0.5 inch Documented by: [id number] Medical Decision Making Differential Diagnosis Differential Diagnosis includes but is not limited to angina, DE, influenza, flu-like illness, dehydration, UTI, pneumonia, and electrolyte imbalance. Medical Records Attestation: I reviewed the patient's medical records. Home Medications Current Medication List: was personally reviewed by me Laboratory Data Attestation: I reviewed the patient's lab results. Result diagrams: 10/21/19 12:17 10/21/19 13:12 Lab Results 10/21/19 10/21/19 10/21/19 Range/Units 12:17 12:17 12:17 WBC 9.54 (4.8-10.8) K/uL RBC 4.54 (4.2-5.4) M/uL Hgb 13.4 (12.0-16.0) g/dL Hct 40.2 (37-47) % MCV 88.5 (80-100) fL MCH 29.5 (25-34) pg MCHC 33.3 (32-36) g/dL RDW Std Deviation 43.7 (36.4-46.3) fL RDW Coeff of Maycol 13.5 (11.5-14.5) % Plt Count 280 (130-400) K/uL MPV 10.5 H (7.4-10.4) fL Immature Gran % (Auto) 0.2 % Neut % (Auto) 80.3 % Lymph % (Auto) 14.0 % Hooker % (Auto) 4.6 % Eos % (Auto) 0.6 % Baso % (Auto) 0.3 % Immature Gran # (Auto) 0.02 (0.00-0.02) K/uL Neut # (Auto) 7.65 H (1.4-6.5) K/uL Lymph # (Auto) 1.34 (1.2-3.4) K/uL Hooker # (Auto) 0.44 (0.11-0.59) K/uL Eos # (Auto) 0.06 (0-0.5) K/uL Baso # (Auto) 0.03 (0-0.2) K/uL PT 10.3 (9.0-12.0) Seconds INR 1.0 (0.9-1.1) APTT 23.9 (21.0-31.0) Seconds PTT Ratio 0.9 Sodium 133 L (136-145) mmol/L Potassium (3.5-5.1) mmol/L Chloride 101 (98-107) mmol/L Carbon Dioxide 27 (21-32) mmol/L Anion Gap 5.0 (3-11) BUN 34 H (7-18) mg/dl Creatinine 1.73 H (0.6-1.2) mg/dl Est Cr Clr Drug Dosing Not Reportable Est GFR ( Amer) 33.6 Est GFR (Non-Af Amer) 29.0 BUN/Creatinine Ratio 19.4 (10-20) Glucose 276 H (70-99) mg/dl Calcium 8.5 (8.5-10.1) mg/dl Magnesium (1.8-2.4) mg/dl Total Bilirubin 0.7 (0.2-1) mg/dl AST (15-37) U/L ALT 29 (12-78) U/L Alkaline Phosphatase 90 (45-117) U/L Total Creatine Kinase (26-192) U/L Troponin I < 0.015 (0-0.045) ng/ml Total Protein 7.7 (6.4-8.2) gm/dl Albumin 3.5 (3.4-5.0) gm/dl Globulin 4.2 H (2.5-4.0) gm/dl Albumin/Globulin Ratio 0.8 L (0.9-2) TSH (0.300-4.500) uIu/ml Free T4 (0.8-1.6) ng/dl Influenza Type A Ag (Neg) Influenza Type B Ag (Neg) 10/21/19 10/21/19 10/21/19 Range/Units 12:17 13:10 13:12 WBC (4.8-10.8) K/uL RBC (4.2-5.4) M/uL Hgb (12.0-16.0) g/dL Hct (37-47) % MCV (80-100) fL MCH (25-34) pg MCHC (32-36) g/dL RDW Std Deviation (36.4-46.3) fL RDW Coeff of Maycol (11.5-14.5) % Plt Count (130-400) K/uL MPV (7.4-10.4) fL Immature Gran % (Auto) % Neut % (Auto) % Lymph % (Auto) % Hooker % (Auto) % Eos % (Auto) % Baso % (Auto) % Immature Gran # (Auto) (0.00-0.02) K/uL Neut # (Auto) (1.4-6.5) K/uL Lymph # (Auto) (1.2-3.4) K/uL Hooker # (Auto) (0.11-0.59) K/uL Eos # (Auto) (0-0.5) K/uL Baso # (Auto) (0-0.2) K/uL PT (9.0-12.0) Seconds INR (0.9-1.1) APTT (21.0-31.0) Seconds PTT Ratio Sodium (136-145) mmol/L Potassium 4.7 (3.5-5.1) mmol/L Chloride (98-107) mmol/L Carbon Dioxide (21-32) mmol/L Anion Gap (3-11) BUN (7-18) mg/dl Creatinine (0.6-1.2) mg/dl Est Cr Clr Drug Dosing Est GFR ( Amer) Est GFR (Non-Af Amer) BUN/Creatinine Ratio (10-20) Glucose (70-99) mg/dl Calcium (8.5-10.1) mg/dl Magnesium 2.3 (1.8-2.4) mg/dl Total Bilirubin (0.2-1) mg/dl AST 18 (15-37) U/L ALT (12-78) U/L Alkaline Phosphatase (45-117) U/L Total Creatine Kinase 77 (26-192) U/L Troponin I (0-0.045) ng/ml Total Protein (6.4-8.2) gm/dl Albumin (3.4-5.0) gm/dl Globulin (2.5-4.0) gm/dl Albumin/Globulin Ratio (0.9-2) TSH 5.620 H (0.300-4.500) uIu/ml Free T4 0.87 (0.8-1.6) ng/dl Influenza Type A Ag Neg for Influ A (Neg) Influenza Type B Ag Neg for Influ B (Neg) 10/21/19 Range/Units 15:15 WBC (4.8-10.8) K/uL RBC (4.2-5.4) M/uL Hgb (12.0-16.0) g/dL Hct (37-47) % MCV (80-100) fL MCH (25-34) pg MCHC (32-36) g/dL RDW Std Deviation (36.4-46.3) fL RDW Coeff of Maycol (11.5-14.5) % Plt Count (130-400) K/uL MPV (7.4-10.4) fL Immature Gran % (Auto) % Neut % (Auto) % Lymph % (Auto) % Hooker % (Auto) % Eos % (Auto) % Baso % (Auto) % Immature Gran # (Auto) (0.00-0.02) K/uL Neut # (Auto) (1.4-6.5) K/uL Lymph # (Auto) (1.2-3.4) K/uL Hooker # (Auto) (0.11-0.59) K/uL Eos # (Auto) (0-0.5) K/uL Baso # (Auto) (0-0.2) K/uL PT (9.0-12.0) Seconds INR (0.9-1.1) APTT (21.0-31.0) Seconds PTT Ratio Sodium (136-145) mmol/L Potassium (3.5-5.1) mmol/L Chloride (98-107) mmol/L Carbon Dioxide (21-32) mmol/L Anion Gap (3-11) BUN (7-18) mg/dl Creatinine (0.6-1.2) mg/dl Est Cr Clr Drug Dosing Est GFR ( Amer) Est GFR (Non-Af Amer) BUN/Creatinine Ratio (10-20) Glucose (70-99) mg/dl Calcium (8.5-10.1) mg/dl Magnesium (1.8-2.4) mg/dl Total Bilirubin (0.2-1) mg/dl AST (15-37) U/L ALT (12-78) U/L Alkaline Phosphatase (45-117) U/L Total Creatine Kinase (26-192) U/L Troponin I < 0.015 (0-0.045) ng/ml Total Protein (6.4-8.2) gm/dl Albumin (3.4-5.0) gm/dl Globulin (2.5-4.0) gm/dl Albumin/Globulin Ratio (0.9-2) TSH (0.300-4.500) uIu/ml Free T4 (0.8-1.6) ng/dl Influenza Type A Ag (Neg) Influenza Type B Ag (Neg) Imaging Data Radiologist's Impression: Radiology results as stated below per my review and the radiologist's interpretation: SINGLE VIEW CHEST CLINICAL HISTORY: Atypical chest pain. FINDINGS: An AP, portable, upright chest radiograph is compared to study dated 04/19/2016. The cardiomediastinal silhouette is unremarkable noting atherosclerotic calcification of the thoracic aorta. Calcified metastatic lymph nodes are incidentally noted. Chronic interstitial thickening is similar to previous. No airspace consolidation or large pleural effusion is identified. No pneumothorax is seen. The skeletal structures are osteopenic. Chronic posttraumatic and postoperative change is noted in the right humerus. IMPRESSION: No active disease in the chest. ACT 112: Negative or not required by law. Electronically signed by: Quincy Barreto M.D. 10/21/2019 12:38 PM ECG Data Attestation: I personally reviewed and interpreted this ECG as follows: Indication: + weakness Rate (beats per minute): 85 Rhythm: + normal sinus ECG Intervals/blocks: + Normal QT-c (QT-c is 404) ECG ST segments: no ST elevation ECG Findings: no PVCs Blood Pressure Blood Pressure Findings: Normal blood pressure Blood Pressure Disposition: further management by hospitalist MDM Narrative There is no leukocytosis or concerning anemia. No coagulopathy. Creatinine is somewhat elevated at 1.73 but the patient has a history of renal insufficiency. No liver enzyme elevation. TSH is slightly high however, the T4 is normal. EKG shows a sinus rhythm, no acute ischemia. Cardiac enzyme testing x2 is not consistent with acute cardiac injury. Chest film does not show pneumonia or CHF. There was no mediastinal widening. Influenza testing was negative. The patient presents with some body aching and flulike symptoms. Since early this morning today she has noticed some backache and left arm pain and chest tightness. She does have some cardiac risk factors. The patient was given oral aspirin and IV saline. She was eventually given a 1/2 inch of nitroglycerin paste. The patient does feel the Nitropaste has helped her discomfort. Given the patient's age, her cardiac risk factors, her complaints and her response to nitroglycerin. I do think further cardiac work-up would be warranted. I spoke to the patient and case management. The on-call hospitalist was consulted. Impression & Plan Weakness, SOB (shortness of breath), Chest tightness, Left shoulder pain Discharge Plan Visit Data *Final* Discharge Date/Time: 10/21/19 16:13 Chief Complaint: Cardiac Assessment Stated Complaint: INCR BS, NAUSEA, WEAKNESS, PAIN IN UPPER BACK ED Provider: Quincy Washington Discharge Problem: Weakness, SOB (shortness of breath), Chest tightness, Left shoulder pain Patient Disposition: Admitted As Inpatient Discharge Instructions Interventions: ED Discharge Assessment Last Done: 10/21/19 16:13 Discharge Problem: Left shoulder pain Qualifiers: Chronicity: unspecified Qualified Code(s): M25.512 - Pain in left shoulder The scribe's documentation has been prepared under my direction and personally reviewed by me in its entirety. I confirm that the note above accurately reflects all work, treatment, procedures, and medical decision making performed by me.
[2019-10-22 05:36] LABS: Hematocrit (blood only) 37.3 % (37-47); Hemoglobin 12.1 g/dL (12.0-16.0); Mean Corpuscular Hemoglobin 29.1 pg (25-34); Mean Corpuscular Hgb Conc 32.4 g/dL (32-36); Mean Corpuscular Volume 89.7 fL (80-100); Mean Platelet Volume 10.7 fL (7.4-10.4); Platelet Count 262 K/uL (130-400); RDW Coefficient of Variation 13.6 % (11.5-14.5); RDW Standard Deviation 44.5 fL (36.4-46.3); Red Blood Count 4.16 M/uL (4.2-5.4); White Blood Count 6.34 K/uL (4.8-10.8)
[2019-10-22 06:04] LABS: BUN Creatinine Ratio 23.6 (10-20); Calcium 7.7 mg/dl (8.5-10.1); Creatinine Clr Calc Pharmacy 31.6 ml/min; Est GFR (African American) 39.3; Est GFR (Non-African American) 33.9
[2019-10-22] MEDS ORDERED: LEVOTHYROXINE SODIUM 100 MCG TABLET PO SCH (06:30)
[2019-10-22 06:33] LABS: Estimated Average Glucose 301 mg/dl; Hemoglobin A1C 12.1 % (4.5-5.6)
[2019-10-22] MEDS ORDERED: ACETAMINOPHEN 325 MG TAB PO PRN (07:49)
[2019-10-22] MEDS ORDERED: FOLIC ACID 1 MG TAB PO SCH (09:00)
[2019-10-22] MEDS ORDERED: CHOLECALCIFEROL 1,000 UNITS TAB PO SCH (09:00)
[2019-10-22] MEDS ORDERED: DOCUSATE SODIUM/SENNA 50/8.6MG TAB PO SCH (09:00)
[2019-10-22] MEDS ORDERED: NON-FORMULARY MEDICATION (Biotin 1 MG) PO SCH (09:00)
--- NOTE | 2019-10-22 10:38 | Electrocardiogram Report ---
Test Reason : Blood Pressure : / mmHG Vent. Rate : 080 BPM Atrial Rate : 080 BPM P-R Int : 156 ms QRS Dur : 068 ms QT Int : 382 ms P-R-T Axes : 059 002 059 degrees QTc Int : 440 ms Normal sinus rhythm Normal ECG When compared with ECG of 21-OCT-2019 12:01, No significant change was found Confirmed by Juan Alberto Tavera ([id number]) on 10/22/2019 10:38:31 AM Referred By: REFERRED SELF Confirmed By:Juan Alberto Tvaera
--- NOTE | 2019-10-22 12:55 | Hospitalist Progress Note ---
Date of Service October 22, 2019 Assessment & Plan (1) Weakness: (2) Chest tightness: Chest Pain (atypical chest pain) -This is a 73-year-old female who has significant past medical history of T1DM, CKD stage III, hypothyroidism, neuropathy, vitamin D deficiency, GERD, osteoporosis, history of breast cancer status post mastectomy and radiation in 2013 who presented to ED secondary to chest tightness while in the shower prior to arrival. (Patient presented to the hospital because of left upper extremity pain towards the left should and chest pressure) Patient had negative troponins levels. Patient had exercise stress test that was negative was ischemia and with a normal ejection fraction of 60 to 65% and no significant valvular disease. Patient has hemoglobin A1c of 12.1. She was seen by [facility] diabetes water resource consultant. Medical doctor suggested follow up with [facility] diabetes clinic. Patient preferred to follow with usual primary care doctor for diabetes management. Labs of creatinine of 1.52. Management of chronic kidney disease as per primary care doctor. Labs of TSH 5.62 and free T4 of 0.87. Management of thyroid medication as per primary care doctor. primary care doctor appointment 10/25/2019 1:00 PM Provider Omar Virgen MD Department [facility] (3) DM type 1 (diabetes mellitus, type 1): -HbA1c 06/2019 11.5 -Patient has hemoglobin A1c of 12.1. She was seen by [facility] diabetes [place]. Medical doctor suggested follow up with [facility] diabetes clinic. Patient preferred to follow with usual primary care doctor for diabetes management. (4) Hypothyroidism: -Labs of TSH 5.62 and free T4 of 0.87. Management of thyroid medication as per primary care doctor. (5) CKD (chronic kidney disease), stage III: -bun/cr 34/1.73 on admission; received IV fluids in ED, received addition 1L from hospitalist service Labs of creatinine of 1.52. Management of chronic kidney disease as per primary care doctor. (6) DVT prophylaxis: -SCD/TEDS while inpatient under observation Diagnosis Chest Pain (atypical chest pain), Hypothyroidism, DM type 1 (diabetes mellitus, type 1); CKD (chronic kidney disease) stage III Subjective patient had negative stress test. she denied pain or chest discomfort today. she wanted to eat food and then be discharge home. no abdominal pain. no vomiting. no dizziness. no lightheadedness. discharge plans and instructions discussed with patient Review of Systems Review of Systems: All systems reviewed & are unremarkable except as noted in HPI & below Physical Exam Constitutional: comfortable Eyes: PERRL, conjunctivae normal, anicteric sclerae EOM intact bilaterally ENMT: external ear and nose normal, oropharynx normal Neck: normal visual inspection Respiratory: normal respiratory effort, lungs clear to auscultation Cardiovascular: Rate/Rhythm: regular rate and regular rhythm Gastrointestinal (Abdomen): normal bowel sounds, soft, nontender, no hepatosplenomegaly Musculoskeletal: Head/Neck/Chest: normocephalic and head atraumatic Neurologic: PERRL, EOMI, accommodation nl, no face palsy, no dysarthria CN's II-XI intact bilaterally Psychiatric: A+Ox3, euthymic affect Results & Data Vital Signs (Past 12 Hours) Vital Signs Temp Pulse Pulse Resp BP Pulse Ox 10/22/19 12:08 36.4 C L 95 H 18 105/66 99 10/22/19 07:05 36.6 C 79 18 119/60 97 10/22/19 07:04 86 10/22/19 04:15 36.4 C L 86 16 99/45 L 95
--- NOTE | 2019-10-22 13:01 | Discharge Summary ---
Date of Service October 22, 2019 Admission HPI Per Admitting Provider This is a 73-year-old female who has significant past medical history of T1DM, CKD stage III, hypothyroidism, neuropathy, vitamin D deficiency, GERD, osteoporosis, history of breast cancer status post mastectomy and radiation in 2013 who presented to ED secondary to chest tightness while in the shower prior to arrival. Approximately 2 days ago she overall felt unwell, weak, had unusually high blood sugar, "I thought I was getting the flu." Yesterday she overall felt well. This morning when she was in the shower she had a, "hot sensation all throughout my body," had substernal chest tightness/pressure that radiated to left arm and back. She overall felt very unwell and when she got out of shower checked her blood sugar which was in 300s, again unusual for patient. During episode she denied any shortness of breath, palpitations, nausea, vomiting, lightheadedness, dizziness, syncope, cough, abdominal pain. She denies having similar symptoms in the past. Denies any recent illness, URI symptoms, change in bowel or bladder habits. She does admit to polydipsia and polyuria, but this is not unusual for her. Her appetite has been normal. No weight change. She has been taking medications as prescribed. When arrived at ED she did receive ASA and nitro which she feels improved her symptoms. She no longer has chest tightness, but when recently went up to walk to the bathroom she does feel weak. "I just feel like something is wrong." In ED lab work was relatively unremarkable except sodium 133, BUN 34, creatinine 1.73, glucose 276. Influenza was negative. Troponin WNL. Chest x-ray revealed no acute abnormality. In ED she received ASA and half an inch of Nitropaste. Symptoms did not improve. Her blood pressure remained on the soft side, but her normal blood pressure is in the low 100s. Admission Exam Per Admitting Provider Constitutional: WD/WN, vitals as above, NAD, sitting up in bed, pleasant, conversing easily Head: Normocephalic, Atraumatic Eyes: PERRL, conjunctivae normal, anicteric sclerae ENMT: external ear and nose normal, oropharynx normal Neck: trachea midline, no thyromegaly normal visual inspection Respiratory: normal respiratory effort, lungs clear to auscultation, no wheeze, rales, rhonchi. Normal insp/exp effort, no accessory muscle use Cardiovascular: RRR, no murmur, no edema Vessels: no JVD or carotid bruit, Chest: normal inspection of chest Abdomen: normal bowel sounds, soft, nontender, no hepatosplenomegaly Musculoskeletal: no cyanosis or clubbing, extremities motor strength 5/5 Skin: no rashes, warm and dry normal turgor Neurologic: PERRL, EOMI, accommodation nl, no face palsy, no dysarthria CN's II-XI intact bilaterally and moves all extremities Psychiatric: A+Ox3, euthymic affect Lymphatic: no cervical or axillary lymphadenopathy : deferred Principal Diagnosis Chest Pain (atypical chest pain), Hypothyroidism, DM type 1 (diabetes mellitus, type 1); CKD (chronic kidney disease) stage III Discharge Exam Constitutional comfortable Eyes PERRL, conjunctivae normal, anicteric sclerae EOM intact bilaterally ENMT external ear and nose normal, oropharynx normal Neck normal visual inspection Respiratory normal respiratory effort, lungs clear to auscultation Cardiovascular Rate/Rhythm: regular rate and regular rhythm Gastrointestinal (Abdomen) normal bowel sounds, soft, nontender, no hepatosplenomegaly Musculoskeletal Head/Neck/Chest: normocephalic and head atraumatic Neurologic PERRL, EOMI, accommodation nl, no face palsy, no dysarthria CN's II-XI intact bilaterally Psychiatric A+Ox3, euthymic affect Discharge Data Allergies Allergy/AdvReac Type Severity Reaction Status Date / Time Sulfa (Sulfonamide Allergy Verified 10/21/19 13:45 Antibiotics) Consultations 10/21/19 15:23 ED Decision to Admit Stat Hospital Course (1) Weakness: (2) Chest tightness: Chest Pain (atypical chest pain) -This is a 73-year-old female who has significant past medical history of T1DM, CKD stage III, hypothyroidism, neuropathy, vitamin D deficiency, GERD, osteoporosis, history of breast cancer status post mastectomy and radiation in 2013 who presented to ED secondary to chest tightness while in the shower prior to arrival. (Patient presented to the hospital because of left upper extremity pain towards the left should and chest pressure) Patient had negative troponins levels. Patient had exercise stress test that was negative was ischemia and with a normal ejection fraction of 60 to 65% and no significant valvular disease. Patient has hemoglobin A1c of 12.1. She was seen by [facility] diabetes cardiology clinical consultant. Medical doctor suggested follow up with [facility] diabetes clinic. Patient preferred to follow with usual primary care doctor for diabetes management. Labs of creatinine of 1.52. Management of chronic kidney disease as per primary care doctor. Labs of TSH 5.62 and free T4 of 0.87. Management of thyroid medication as per primary care doctor. primary care doctor appointment 10/25/2019 1:00 PM Provider Omar Virgen MD [facility] (3) DM type 1 (diabetes mellitus, type 1): -HbA1c 06/2019 11.5 -Patient has hemoglobin A1c of 12.1. She was seen by [facility] diabetes cardiology clinical consultant. Medical doctor suggested follow up with [facility] diabetes clinic. Patient preferred to follow with usual primary care doctor for diabetes management. (4) Hypothyroidism: -Labs of TSH 5.62 and free T4 of 0.87. Management of thyroid medication as per primary care doctor. (5) CKD (chronic kidney disease), stage III: -bun/cr 34/1.73 on admission; received IV fluids in ED, received addition 1L from hospitalist service Labs of creatinine of 1.52. Management of chronic kidney disease as per primary care doctor. (6) DVT prophylaxis: -SCD/TEDS while inpatient under observation Diagnosis Chest Pain (atypical chest pain), Hypothyroidism, DM type 1 (diabetes mellitus, type 1); CKD (chronic kidney disease) stage III Total Time Total Time Spent Total Time Spent (In Minutes): 40 minutes Total Time Includes: Examination of the Patient, Discharge Planning, Medication Reconciliation and Communication With Other Providers Discharge Plan Discharge Items Patient Disposition: Home - Self-Care Reason For Visit: CHEST PAIN, FLU LIKE ILLNESS Discharge Diagnosis: Chest Pain (atypical chest pain), Hypothyroidism, DM type 1 (diabetes mellitus, type 1); CKD (chronic kidney disease), stage III Condition on Discharge: Good Activity: Resume your previous activity Non-emergency contact: Primary Care Provider Call non-emergency contact if: you have any medication questions Follow-up/Referrals: Omar Virgen MD [Primary Care Provider] - Diet: Carb Consistent or DM2 Addtl Attending Provider Instructions: Patient presented to the hospital because of left upper extremity pain towards the left should and chest presssure Patient had negative troponins levels. Patient had exercise stress test that was negative was ischemia and with a normal ejection fraction of 60 to 65% and no significant valvular disease. Patient has hemoglobin A1c of 12.1. She was seen by [facility] diabetes cardiology clinical consultant. Medical doctor suggested follow up with [facility] diabetes clinic. Patient preferrred to follow with usual primary care doctor for diabetes management. Labs of creatinine of 1.52. Management of chronic kidney disease as per primary care doctor. Labs of TSH 5.62 and free T4 of 0.87. Management of thy roid medication as per primary care doctor. primary care doctor appointment 10/25/2019 1:00 PM Provider Omar Virgen MD Department [facility] Pending Studies at Discharge: No Stand-Alone Forms: My [facility], Smoking Cessation Medications and DC Order Prescriptions: Continued Humalog U-100 Insulin 100 unit/mL Cartridge 1 sliding scale dose continuous subcutaneous infusion UD Qty: 0 RF: 0 sennosides-docusate sodium 8.6-50 mg Tablet 1 tab PO QAM Qty: 0 RF: 0 levothyroxine 100 mcg Tablet 100 mcg PO 6XWK 90 Days Qty: 0 RF: 3 folic acid 1 mg Tablet 1 mg PO QAM Qty: 0 RF: 0 cholecalciferol (vitamin D3) 1,000 unit Capsule 1,000 unit PO QAM Qty: 0 RF: 0 levothyroxine 100 mcg Tablet 50 mcg PO MONROY 90 Days Qty: 0 RF: 3 biotin 1 mg tablet 1 mg PO DAILY RF: 0 ibuprofen 200 mg Tablet 200 mg PO Q6H PRN (Reason: Pain) RF: 0 Discharge Orders: Discharge Order (Routine); Ordered 10/22/19 Ordered By: Shady Pina Admission Data Admit Date/Time: 10/21/19 15:35 Attending Provider: Shady Pina Admit Provider: Fernando Lozoya Primary Care Provider: Omar Virgen Other Providers: Fernando Lozoya
[2019-10-27] MEDS ORDERED: LEVOTHYROXINE SODIUM 50 MCG TABLET PO SCH (06:30)
== END 2019-10-22 13:28 | disposition home or self-care (01) ==
LOC: 2E 11:46 → ED 11:46 → SUATTDRO 15:35 → 2E 16:13

== ENCOUNTER 2021-06-07 09:34 | Inpatient (IN) ==
[2021-06-07] MEDS ORDERED: ACETAMINOPHEN 1,000 MG/100 ML VIAL IV STA (10:11)
[2021-06-07] MEDS ORDERED: SODIUM CHLORIDE 0.9% 1000ML 1,000 ML IV ONE ×2 (10:11→10:57)
[2021-06-07] MEDS ORDERED: DICLOFENAC SOD 1% GEL 100 GM TUBE EXT STA (10:11)
--- NOTE | 2021-06-07 10:14 | Emergency Department Note ---
History of Present Illness General Chief complaint: Back Injury/Pain Stated complaint: R SIDE BACK PAIN Time Seen by Provider: 06/07/21 09:39 Source: patient and family Mode of arrival: EMS Limitations: no limitations History of Present Illness Provider complaint: right back pain Onset (ago): week(s) 1 Location: back Radiation: abdomen Severity: moderate Maximum Pain Intensity: 8 Relieved By: + rest Exacerbated By: + movement Associated symptoms: + loss of appetite, + malaise and + nausea/vomiting; no chest pain, no fever/chills or no shortness of breath Treatments prior to arrival: NSAID and cold therapy This is a 75-year-old female who presents with worsening right back pain. Patient states she has had intermittent back pain for several months, however in the last week it has been significantly worse. Patient states the pain makes her nauseous. She states she did come to the ER last week and had an upper extremity DVT performed as she felt increased pain in the right upper extremity which does have chronic lymphedema. She was given percocet which she states made her nauseated and constipated. She states since that time she has had difficulty with any oral intake and is concerned in addition about dehydration. She states she is stuck to ibuprofen and ice for her pain, but feels it continues to worsen. She is scared of taking any additional narcotics. Patient with a prior history of breast cancer, right-sided mastectomy, which led to the right upper extremity lymphedema. No recent falls or injury. She states she is having bowel movements now again although still feels her bowels are sluggish. No other change in medications. No trauma or injury. Pt seen during a time of high acuity and national emergency pandemic while wearing PPE. Home Medications Medication Instructions Recorded Confirmed Type insulin lispro 100 unit/mL 1 sliding scale dose CONTINUOUS 09/15/15 06/07/21 History subcutaneous cartridge (Humalog SUBCUTANEOUS INFUSION UD #0 dose U-100 Insulin) cholecalciferol (vitamin D3) 25 1,000 unit PO QAM #0 08/04/16 06/07/21 History mcg (1,000 unit) capsule folic acid 1 mg tablet 1 mg PO QAM #0 tab 08/04/16 06/07/21 History sennosides 8.6 mg-docusate sodium 1 tab PO QAM PRN #0 08/04/16 06/07/21 History 50 mg tablet ibuprofen 200 mg tablet 200 mg PO Q6H PRN 04/04/19 06/07/21 History biotin 1 mg tablet 1 mg PO QAM tab 08/01/19 06/07/21 History levothyroxine 100 mcg tablet 100 mcg PO QAM 90 Days #90 tab 11/04/19 06/07/21 History cyanocobalamin (vitamin B-12) 500 500 mcg PO DAILY 06/07/21 06/07/21 History mcg tablet (Vitamin B-12) polyethylene glycol 3350 17 17 g PO DAILY 06/07/21 06/07/21 History gram/dose oral powder (Miralax) Allergies Allergy/AdvReac Type Severity Reaction Status Date / Time Sulfa (Sulfonamide Allergy Verified 06/07/21 10:21 Antibiotics) Past Med/Surg History Medical History Breast cancer (07/30/14) "s/p mastectomy of right breast and radiation in 2013" CKD (chronic kidney disease), stage III DM type 1 (diabetes mellitus, type 1) Fibromyalgia Hypothyroidism Osteoporosis Vitamin D deficiency Surgical History H/O section (01/04/13) H/O umbilical hernia repair S/P cataract surgery S/P laparoscopic cholecystectomy S/P mastectomy "right breast" Family History Father COPD (chronic obstructive pulmonary disease) CHF (congestive heart failure) Mother Rheumatoid arthritis Son Type 1 diabetes mellitus Social History Smoking Status: Never smoker Second Hand Exposure: Yes (dad many tears ago.); Do You Dip or Chew Tobacco: No; Hx Alcohol Use: No Hx Substance Use: No Preferred Language: Vincentian Communication Ability: Effective Agriculture Science Teacher Required: No Beliefs That Will Affect Care: Confucianism Confucianism Beliefs: Scientologist marital status: Current Living Situation: Spouse Other Information That Helps Us Care for You: Yes (Possible assistance at home after discharge.) Feels Safe at Home: Yes Safety Concerns: Feels Safe At This Time Assistive Devices: Cane and Walker Review of Systems A total of 10 systems reviewed and were otherwise negative All systems reviewed & are unremarkable except as noted in HPI & below Physical Exam Vital Signs Vital Signs - 24 hr 06/07/21 09:42 06/07/21 11:42 Temperature 36.8 C Temperature Source Oral Pulse Rate 85 Pulse Rate [Apical] 87 Respiratory Rate 18 18 Blood Pressure 151/99 H Blood Pressure [Left Arm] 126/68 Blood Pressure Mean 116 Blood Pressure Mean [Left Arm] 87 Pulse Oximetry 98 98 Oxygen Delivery Method Room Air Room Air Sepsis Recent Fever Within 48 Hours No Sepsis New/Unexplained Change in Mental Status No Sepsis Action Taken by Nursing No Action Required GENERAL: alert, uncomfortable appearing, well nourished, no distress, non-toxic EYE EXAM: normal conjunctiva, PERRL and EOM's grossly intact OROPHARYNX: no exudate, no erythema, lips, buccal mucosa, and tongue normal and mucous membranes are moist NECK: supple, no nuchal rigidity, no adenopathy, non-tender LUNGS: Clear to auscultation. Normal chest wall mechanics, no w/r/r HEART: no murmurs, S1 normal and S2 normal CHEST WALL: prior mastectomy, healed incisions noted ABDOMEN: abdomen soft, non-tender, normo-active bowel sounds, no masses, no rebound or guarding. BACK: Back is symmetrical on inspection and there is no deformity, no midline tenderness, no CVA tenderness. SKIN: no rashes and no bruising UPPER EXTREMITIES: upper extremities are grossly normal. Lymphedema noted in RUE. FROM, nml pulses b/l. LOWER EXTREMITIES: No pitting edema. FROM, nml pulses b/l. NEURO EXAM: Normal sensorium, cranial nerves II-XII grossly intact, normal speech, no gross weakness of arms, no gross weakness of legs. Gross sensation intact. Course Course 1210: Updated patient on results. She states mastectomy was in 2013 when she was following with Dr. Peña. She did have radiation following this although has not had any additional testing or follow-up with oncology since he left. She states she was never told of any metastatic disease back then. 1225: Discussed with suzette Cornejo hospitalist team. Administered Medications Cyanocobalamin (Cyanocobalamin 500 Mcg Tablet (Vitamin B-12)) 500 mcg PO DAILY [facility] Stop: 07/08/21 08:59 Last Admin: 06/08/21 09:31 Dose: 500 mcg Documented by: [id number] Docusate Sodium (Docusate Sodium 100 Mg Cap) 100 mg PO BID [facility] Stop: 07/07/21 20:59 Last Admin: 06/08/21 20:31 Dose: 100 mg Documented by: [id number] Admin: 06/08/21 09:31 Dose: 100 mg Documented by: [id number] Admin: 06/07/21 20:39 Dose: 100 mg Documented by: [id number] Enoxaparin Sodium (Enoxaparin Inj 40 Mg/0.4 Ml Syr) 40 mg SQ Q24H [facility] Stop: 07/07/21 17:59 Last Admin: 06/07/21 17:27 Dose: Not Given Documented by: [id number] Folic Acid (Folic Acid 1 Mg Tab) 1 mg PO QAM [facility] Stop: 07/08/21 08:59 Last Admin: 06/08/21 09:31 Dose: 1 mg Documented by: [id number] Insulin Human Lispro (Humalog Insulin Pump) 1 ea N/A [facility]; Protocol Stop: 07/07/21 16:29 Last Admin: 06/08/21 20:31 Dose: 1 ea Documented by: [id number] Admin: 06/08/21 17:56 Dose: 1 ea Documented by: [id number] Admin: 06/08/21 13:02 Dose: 1 ea Documented by: [id number] Admin: 06/08/21 09:35 Dose: 1 ea Documented by: [id number] Admin: 06/07/21 20:08 Dose: Not Given Documented by: [id number] Admin: 06/07/21 17:26 Dose: 1 ea Documented by: [id number] Levothyroxine Sodium (Levothyroxine Sodium 100 Mcg Tablet) 100 mcg PO DAILYBB [facility] Stop: 07/08/21 06:29 Last Admin: 06/08/21 06:07 Dose: 100 mcg Documented by: [id number] Miscellaneous (Carbohydrates For Hypoglycemia ) 15 - 30 gm PO UD PRN PRN Reason: Hypoglycemia Protocol Stop: 07/07/21 12:45 Last Admin: 06/07/21 20:09 Dose: 15 gm Documented by: [id number] Ondansetron HCl (Ondansetron Inj 2 Mg/Ml 2 Ml Vial) 4 mg IV Q6H PRN PRN Reason: Nausea Stop: 07/07/21 15:27 Last Admin: 06/08/21 21:24 Dose: 4 mg Documented by: [id number] Polyethylene Glycol (Polyethylene (Miralax) 17 Gm Pack) 17 gm PO DAILY PRN PRN Reason: Constipation Stop: 07/07/21 20:12 Last Admin: 06/08/21 10:11 Dose: 17 gm Documented by: [id number] Admin: 06/07/21 20:38 Dose: 17 gm Documented by: [id number] Tramadol HCl (Tramadol Hcl 50 Mg Tablet) 50 mg PO Q4H PRN PRN Reason: Pain Stop: 07/07/21 15:27 Last Admin: 06/08/21 20:30 Dose: 50 mg Documented by: [id number] Admin: 06/08/21 13:01 Dose: 50 mg Documented by: [id number] Admin: 06/07/21 20:38 Dose: 50 mg Documented by: [id number] Vitamin D (Cholecalciferol 1,000 Units 25 Mcg Tab) 1,000 units PO QAM [facility] Stop: 07/08/21 08:59 Last Admin: 06/08/21 09:31 Dose: 1,000 units Documented by: [id number] Discontinued Medications Diclofenac Sodium (Diclofenac Sod 1% Gel 100 Gm Tube) 1 gm EXT NOW STA Stop: 06/07/21 10:12 Last Admin: 06/07/21 10:31 Dose: 1 gm Documented by: [id number] Famotidine (Famotidine 20mg/5ml Iv Push) 20 mg IV ONE STA Stop: 06/07/21 10:58 Last Admin: 06/07/21 11:23 Dose: 20 mg Documented by: [id number] Fentanyl Citrate (Fentanyl Citrate 100 Mcg/2 Ml Vial) 50 mcg IV Q15M PRN PRN Reason: Pain Stop: 06/21/21 12:10 Last Admin: 06/07/21 13:33 Dose: 50 mcg Documented by: [id number] Sodium Chloride (Nss 1000ml) 1,000 mls @ 999 mls/hr IV .Q1H1M ONE Stop: 06/07/21 11:11 Last Infusion: 06/07/21 11:35 Dose: 0 mls/hr Documented by: [id number] Admin: 06/07/21 10:31 Dose: 999 mls/hr Documented by: [id number] Acetaminophen (Ofirmev) 1,000 mg in 100 mls @ 400 mls/hr IV NOW STA Stop: 06/07/21 10:25 Last Infusion: 06/07/21 10:46 Dose: 0 mls/hr Documented by: [id number] Admin: 06/07/21 10:31 Dose: 400 mls/hr Documented by: [id number] Sodium Chloride (Nss 1000ml) 1,000 mls @ 999 mls/hr IV .Q1H1M ONE Stop: 06/07/21 11:57 Last Infusion: 06/07/21 12:26 Dose: 0 mls/hr Documented by: [id number] Admin: 06/07/21 11:24 Dose: 999 mls/hr Documented by: [id number] Insulin Human Lispro (Humalog Insulin Pump) 1 ea N/A TODAY@0200 [facility]; Protocol Stop: 06/08/21 02:01 Last Admin: 06/08/21 02:03 Dose: 1 ea Documented by: [id number] Ioversol (Optiray 320 100ml) 94 ml IV ONCE ONE Stop: 06/07/21 11:16 Last Admin: 06/07/21 11:15 Dose: 94 ml Documented by: [id number] Ondansetron HCl (Ondansetron Inj 2 Mg/Ml 2 Ml Vial) 4 mg IV NOW STA Stop: 06/07/21 10:58 Last Admin: 06/07/21 11:23 Dose: 4 mg Documented by: [id number] Ondansetron HCl (Ondansetron Inj 2 Mg/Ml 2 Ml Vial) Confirm Administered Dose 4 mg .ROUTE .STK-MED ONE Stop: 06/07/21 15:45 Last Admin: 06/07/21 15:45 Dose: 4 mg Documented by: [id number] Medical Decision Making Differential Diagnosis Differential diagnoses includes but is not limited to lumbar radiculopathy, muscle strain, facture, cauda equina, mass, and disc herniation. Medical Records Attestation: I reviewed the patient's medical records. Home Medications Current Medication List: was personally reviewed by me Laboratory Data Attestation: I reviewed the patient's lab results. Result diagrams: 06/08/21 06:16 06/08/21 06:16 Lab Results 06/07/21 06/07/21 06/07/21 Range/Units 10:21 10:21 12:11 WBC 9.68 (4.8-10.8) K/uL RBC 4.86 (4.2-5.4) M/uL Hgb 14.2 (12.0-16.0) g/dL Hct 43.1 (37-47) % MCV 88.7 (80-100) fL MCH 29.2 (25-34) pg MCHC 32.9 (32-36) g/dL RDW Std Deviation 43.2 (36.4-46.3) fL RDW Coeff of Maycol 13.3 (11.5-14.5) % Plt Count 423 H (130-400) K/uL MPV 10.8 H (7.4-10.4) fL Immature Gran % (Auto) 0.2 % Neut % (Auto) 82.0 % Lymph % (Auto) 9.6 % [place] % (Auto) 7.0 % Eos % (Auto) 0.9 % Baso % (Auto) 0.3 % Neut # (Auto) 7.93 H (1.4-6.5) K/uL Lymph # (Auto) 0.93 L (1.2-3.4) K/uL [place] # (Auto) 0.68 H (0.11-0.59) K/uL Eos # (Auto) 0.09 (0-0.5) K/uL Baso # (Auto) 0.03 (0-0.2) K/uL Immature Gran # (Auto) 0.02 (0.00-0.02) K/uL Sodium 129 L (136-145) mmol/L Potassium 5.1 (3.5-5.1) mmol/L Chloride 96 L (98-107) mmol/L Carbon Dioxide 22 (21-32) mmol/L Anion Gap 11.0 (3-11) BUN 30 H (7-18) mg/dl Creatinine 1.38 H (0.6-1.2) mg/dl Est Cr Clr Drug Dosing 30.9 ml/min Est GFR ( Amer) 43.5 ml/min Est GFR (Non-Af Amer) 37.6 ml/min BUN/Creatinine Ratio 21.9 H (10-20) Glucose 363 H* (70-99) mg/dl POC Glucose 262 H (70-99) mg/dl Calcium 8.5 (8.5-10.1) mg/dl Magnesium 2.1 (1.8-2.4) mg/dl Total Bilirubin 1.1 H (0.2-1) mg/dl AST 34 (15-37) U/L ALT 34 (12-78) U/L Alkaline Phosphatase 151 H (45-117) U/L Total Protein 7.0 (6.4-8.2) gm/dl Albumin 3.1 L (3.4-5.0) gm/dl Globulin 3.9 (2.5-4.0) gm/dl Albumin/Globulin Ratio 0.8 L (0.9-2) Lipase 52 L (73-393) U/L Beta-Hydroxybutyric Acd 33.90 H (0.2-2.81) mg/dl COVID-19 Eval Order SARS-CoV-2 (PCR) (Negative) 06/07/21 06/07/21 Range/Units 12:45 12:45 WBC (4.8-10.8) K/uL RBC (4.2-5.4) M/uL Hgb (12.0-16.0) g/dL Hct (37-47) % MCV (80-100) fL MCH (25-34) pg MCHC (32-36) g/dL RDW Std Deviation (36.4-46.3) fL RDW Coeff of Maycol (11.5-14.5) % Plt Count (130-400) K/uL MPV (7.4-10.4) fL Immature Gran % (Auto) % Neut % (Auto) % Lymph % (Auto) % [place] % (Auto) % Eos % (Auto) % Baso % (Auto) % Neut # (Auto) (1.4-6.5) K/uL Lymph # (Auto) (1.2-3.4) K/uL [place] # (Auto) (0.11-0.59) K/uL Eos # (Auto) (0-0.5) K/uL Baso # (Auto) (0-0.2) K/uL Immature Gran # (Auto) (0.00-0.02) K/uL Sodium (136-145) mmol/L Potassium (3.5-5.1) mmol/L Chloride (98-107) mmol/L Carbon Dioxide (21-32) mmol/L Anion Gap (3-11) BUN (7-18) mg/dl Creatinine (0.6-1.2) mg/dl Est Cr Clr Drug Dosing ml/min Est GFR ( Amer) ml/min Est GFR (Non-Af Amer) ml/min BUN/Creatinine Ratio (10-20) Glucose (70-99) mg/dl POC Glucose (70-99) mg/dl Calcium (8.5-10.1) mg/dl Magnesium (1.8-2.4) mg/dl Total Bilirubin (0.2-1) mg/dl AST (15-37) U/L ALT (12-78) U/L Alkaline Phosphatase (45-117) U/L Total Protein (6.4-8.2) gm/dl Albumin (3.4-5.0) gm/dl Globulin (2.5-4.0) gm/dl Albumin/Globulin Ratio (0.9-2) Lipase (73-393) U/L Beta-Hydroxybutyric Acd (0.2-2.81) mg/dl COVID-19 Eval Order Covid19 at [facility] SARS-CoV-2 (PCR) NEGATIVE (Negative) Imaging Data Radiologist's Impression: Abdomen/Pelvis CT 06/07/21 10:11 CT SCAN OF THE ABDOMEN AND PELVIS WITH IV CONTRAST CLINICAL HISTORY: Right-sided back and flank pain. COMPARISON STUDY: Abdominal CT dated 05/31/2018. TECHNIQUE: Following the IV administration of 94 cc of Optiray 320, CT scan of the abdomen and pelvis is performed from the lung bases to the proximal femora. Images are reviewed in the axial, sagittal, and coronal planes. IV contrast was administered without complication. A dose lowering technique was utilized adhering to the principles of ALARA. The examination is degraded by motion artifact, as well as by streak artifact from the right arm which could not be related above the abdomen. CT DOSE: 380.81 mGy.cm FINDINGS: Lung bases: The heart is normal in size and without pericardial effusion. There is a moderate right pleural effusion with associated bibasilar consolidation. Trace pleural effusion is seen on the left. Soft tissue thickening and enhancement of the right pleura is noted posteriorly on image #18. There is a small hiatal hernia. Liver: The contrast-enhanced liver is normal in size, contour, and attenuation. There is mild to moderate central intrahepatic biliary ductal dilatation. The hepatic veins and portal veins are patent. There is evidence of multifocal hepatic metastatic disease with greater than 10 lesions identified. The largest lesion is seen in the right lobe on image #82 and measures 3 cm. Several of these lesions demonstrate internal enhancement. Gallbladder: Surgically absent noting clips in the gallbladder fossa. Spleen: Normal in size and attenuation. There are calcified splenic granulomas. Pancreas: Unremarkable. Adrenal glands: Unremarkable. Kidneys: The contrast enhanced kidneys demonstrate mild cortical atrophy and are without hydronephrosis. The kidneys enhance symmetrically. Abdominal vasculature: The abdominal aorta is normal in course and caliber noting moderate to advanced atherosclerotic calcification. Bowel: Moderate fecal retention is seen throughout the colon. No bowel obstruction is identified. The appendix is well-visualized and normal. Peritoneum/retroperitoneum: There is no intraperitoneal free air or abdominal ascites. There is ill-defined soft tissue in the left retroperitoneal space on image #102. This is located below the left adrenal gland and may represent metastatic disease. Lymphadenopathy: None. Pelvic viscera: The bladder is decompressed and appears circumferentially thick walled. The uterus and adnexa are normal as visualized. Skeletal structures: The skeletal structures are heterogeneously osteopenic. There is evidence of multifocal osteoblastic metastatic disease a lesion in the left aspect of the sacrum image #239 measures 1.7 cm. Additional lesions are seen throughout the spine and within the bony pelvis. Hand Cigar Making Supervisor lesions are seen in the inferior aspect of the L4 and L5 vertebral bodies on axial images #196 and #234. There are healed right-sided rib fractures. Soft tissues: The right breast is surgically absent. Foci of dermal thickening and nodularity are seen within the right chest wall on images #12 and #22. Soft tissue edema within the right chest wall may be treatment related. IMPRESSION: 1. There is evidence of multifocal hepatic metastatic disease. Correlate with oncological history. 2. There is evidence of multifocal osteoblastic metastatic disease. 3. The right breast is surgically absent. There are foci of dermal thickening and nodularity within the right chest wall at the operative site. This also likely represents neoplasm. 4. There is ill-defined soft tissue in the upper retroperitoneal space below the level of the left adrenal gland. This also likely represents neoplasm. 5. Moderate constipation. 6. The bladder wall appears circumferentially thickened. Correlate with clinical findings and urinalysis. 7. Moderate right pleural effusion with associated right basilar consolidation. This may represent a metastatic effusion as there is pleural thickening and enhancement seen posteriorly. Consolidation likely represents atelectasis and clinical correlation will be required. 8. Trace left pleural effusion. 9. Additional findings as above. ACT 112: Negative or not required by law. Electronically signed by: Quincy Barreto M.D. 06/07/2021 11:44 AM MDM Narrative This is a 75-year-old female presents emergency department complaining of increased back pain. Patient has had a history of intermittent back pain over the last several months, but states pain was worse over the past week. Patient had tried Percocet but felt too many adverse reaction so she stopped. She has been using ice and ibuprofen intermittently. Labs are drawn and sent, patient sent for CT imaging as a precaution due to extensive past medical history including malignancy. Patient found to have multiple areas of bony metastases and likely recurrence of her previously diagnosed and treated breast cancer. Extensive bedside discussion with patient and family regarding the CT findings. Patient's other labs appear stable with mild RAJ, hyperglycemia, and pseudohyponatremia. No evidence of DKA. Discussed with hospitalist for additional inpatient management. Patient was given several medications for pain, and did remain hemodynamically stable. I do not suspect any occult infectious etiology at this point. An order was placed for continuous cardiac monitoring. The monitor shows a rate of _86_ with _normal sinus_ rhythm. Impression & Plan Back pain, Lymphedema, Metastatic cancer Discharge Plan Visit Data Chief Complaint: Back Injury/Pain Stated Complaint: R SIDE BACK PAIN ED Provider: Shannon Bosch Discharge Problem: Back pain, Lymphedema, Metastatic cancer Patient Disposition: Admitted As Inpatient Discharge Instructions Interventions: ED Discharge Assessment Last Done: 06/07/21 14:44 Discharge Problem: Back pain Qualifiers: Back pain location: thoracic back pain Chronicity: acute Back pain laterality: right Qualified Code(s): M54.6 - Pain in thoracic spine Metastatic cancer Qualifiers: Area of secondary neoplastic involvement: bone Qualified Code(s): C79.51 - Secondary malignant neoplasm of bone
[2021-06-07 10:31] LABS: Basophils # (auto) 0.03 K/uL (0-0.2); Basophils % (auto) 0.3 %; Eosinophils # (auto) 0.09 K/uL (0-0.5); Eosinophils % (auto) 0.9 %; Hematocrit (blood only) 43.1 % (37-47); Hemoglobin 14.2 g/dL (12.0-16.0); Immature Granulocytes # (auto) 0.02 K/uL (0.00-0.02); Immature Granulocytes % (auto) 0.2 %; Lymphocytes # (auto) 0.93 K/uL (1.2-3.4); Lymphocytes % (auto) 9.6 %; Mean Corpuscular Hemoglobin 29.2 pg (25-34); Mean Corpuscular Hgb Conc 32.9 g/dL (32-36); Mean Corpuscular Volume 88.7 fL (80-100); Mean Platelet Volume 10.8 fL (7.4-10.4); Monocytes # (auto) 0.68 K/uL (0.11-0.59); Neutrophils # (auto) 7.93 K/uL (1.4-6.5); Platelet Count 423 K/uL (130-400); RDW Coefficient of Variation 13.3 % (11.5-14.5); RDW Standard Deviation 43.2 fL (36.4-46.3); Red Blood Count 4.86 M/uL (4.2-5.4); White Blood Count 9.68 K/uL (4.8-10.8)
[2021-06-07 10:55] LABS: Albumin Globulin Ratio 0.8 (0.9-2); Albumin Level 3.1 gm/dl (3.4-5.0); BUN Creatinine Ratio 21.9 (10-20); Bilirubin,Total 1.1 mg/dl (0.2-1); Calcium 8.5 mg/dl (8.5-10.1); Creatinine Clr Calc Pharmacy 30.9 ml/min; Est GFR (African American) 43.5 ml/min; Est GFR (Non-African American) 37.6 ml/min; Globulin 3.9 gm/dl (2.5-4.0); Magnesium 2.1 mg/dl (1.8-2.4); Potassium 5.1 mmol/L (3.5-5.1)
[2021-06-07] MEDS ORDERED: ONDANSETRON INJ 2 MG/ML 2 ML VIAL IV STA (10:57)
[2021-06-07] MEDS ORDERED: FAMOTIDINE 20MG/5ML IV PUSH IV STA (10:57)
[2021-06-07 11:05] LABS: Beta-Hydroxybutyrate 33.9 mg/dl (0.2-2.81)
[2021-06-07] MEDS ORDERED: OPTIRAY 320 100ml IV ONE (11:15)
--- NOTE | 2021-06-07 11:45 | CT Scan Report ---
CT SCAN OF THE ABDOMEN AND PELVIS WITH IV CONTRAST CLINICAL HISTORY: Right-sided back and flank pain. COMPARISON STUDY: Abdominal CT dated 05/31/2018. TECHNIQUE: Following the IV administration of 94 cc of Optiray 320, CT scan of the abdomen and pelvi s is performed from the lung bases to the proximal femora. Images are reviewed in the axial, sagittal , and coronal planes. IV contrast was administered without complication. A dose lowering technique wa s utilized adhering to the principles of ALARA. The examination is degraded by motion artifact, as we ll as by streak artifact from the right arm which could not be related above the abdomen. CT DOSE: 380.81 mGy.cm FINDINGS: Lung bases: The heart is normal in size and without pericardial effusion. There is a moderate right p leural effusion with associated bibasilar consolidation. Trace pleural effusion is seen on the left. Soft tissue thickening and enhancement of the right pleura is noted posteriorly on image #18. There i s a small hiatal hernia. Liver: The contrast-enhanced liver is normal in size, contour, and attenuation. There is mild to mode rate central intrahepatic biliary ductal dilatation. The hepatic veins and portal veins are patent. T here is evidence of multifocal hepatic metastatic disease with greater than 10 lesions identified. Th e largest lesion is seen in the right lobe on image #82 and measures 3 cm. Several of these lesions d emonstrate internal enhancement. Gallbladder: Surgically absent noting clips in the gallbladder fossa. Spleen: Normal in size and attenuation. There are calcified splenic granulomas. Pancreas: Unremarkable. Adrenal glands: Unremarkable. Kidneys: The contrast enhanced kidneys demonstrate mild cortical atrophy and are without hydronephros is. The kidneys enhance symmetrically. Abdominal vasculature: The abdominal aorta is normal in course and caliber noting moderate to advance d atherosclerotic calcification. Bowel: Moderate fecal retention is seen throughout the colon. No bowel obstruction is identified. The appendix is well-visualized and normal. Peritoneum/retroperitoneum: There is no intraperitoneal free air or abdominal ascites. There is ill-d efined soft tissue in the left retroperitoneal space on image #102. This is located below the left ad renal gland and may represent metastatic disease. Lymphadenopathy: None. Pelvic viscera: The bladder is decompressed and appears circumferentially thick walled. The uterus an d adnexa are normal as visualized. Skeletal structures: The skeletal structures are heterogeneously osteopenic. There is evidence of mul tifocal osteoblastic metastatic disease a lesion in the left aspect of the sacrum image #239 measures 1.7 cm. Additional lesions are seen throughout the spine and within the bony pelvis. International Marketing Manager lesions are seen in the inferior aspect of the L4 and L5 vertebral bodies on axial images #196 and #2 34. There are healed right-sided rib fractures. Soft tissues: The right breast is surgically absent. Foci of dermal thickening and nodularity are see n within the right chest wall on images #12 and #22. Soft tissue edema within the right chest wall ma y be treatment related. IMPRESSION: 1. There is evidence of multifocal hepatic metastatic disease. Correlate with oncological history. 2. There is evidence of multifocal osteoblastic metastatic disease. 3. The right breast is surgically absent. There are foci of dermal thickening and nodularity within t he right chest wall at the operative site. This also likely represents neoplasm. 4. There is ill-defined soft tissue in the upper retroperitoneal space below the level of the left ad renal gland. This also likely represents neoplasm. 5. Moderate constipation. 6. The bladder wall appears circumferentially thickened. Correlate with clinical findings and urinaly sis. 7. Moderate right pleural effusion with associated right basilar consolidation. This may represent a metastatic effusion as there is pleural thickening and enhancement seen posteriorly. Consolidation li norma represents atelectasis and clinical correlation will be required. 8. Trace left pleural effusion. 9. Additional findings as above. ACT 112: Negative or not required by law. Electronically signed by: Quincy Barreto M.D. 06/07/2021 11:44 AM
[2021-06-07] MEDS ORDERED: fentaNYL citrate 100 MCG/2 ML VIAL IV PRN (12:11)
[2021-06-07] MEDS ORDERED: PHARMACY GLYCEMIC MGMT CONSULT PRN ×2 (12:46→14:25)
[2021-06-07] MEDS ORDERED: GLUCAGON FOR INJ 1 MG VIAL SQ PRN (12:46)
[2021-06-07] MEDS ORDERED: DEXTROSE 50% 50 ML SYRINGE IV PRN (12:46)
[2021-06-07] MEDS ORDERED: GLUCOSE 40% GEL 15 GM TUBE PO PRN (12:46)
[2021-06-07] MEDS ORDERED: CARBOHYDRATES FOR HYPOGLYCEMIA PO PRN (12:46)
[2021-06-07] MEDS ORDERED: GLUCOSE 10 TABS/TUBE PO PRN (12:46)
--- NOTE | 2021-06-07 12:53 | History & Physical Report ---
Date of Service June 07, 2021 Assessment & Plan (1) Back pain with radiation: (2) Metastatic cancer: (3) History of breast cancer: Plan: This is a 75yo F with a PMH of poorly controlled T1DM, CKD stage III, hypothyroidism, history of breast cancer status post mastectomy and radiation in 2013 who presents with worsening back pain over the past week. Worsening back pain over past month now extending to RUE CT abd/pelvis with: * 1. There is evidence of multifocal hepatic metastatic disease. Correlate with oncological history. 2. There is evidence of multifocal osteoblastic metastatic disease. 3. The right breast is surgically absent. There are foci of dermal thickening and nodularity within the right chest wall at the operative site. This also likely represents neoplasm. 4. There is ill-defined soft tissue in the upper retroperitoneal space below the level of the left adrenal gland. This also likely represents neoplasm. 5. Moderate constipation. 6. The bladder wall appears circumferentially thickened. Correlate with clinical findings and urinalysis. 7. Moderate right pleural effusion with associated right basilar consolidation. This may represent a metastatic effusion as there is pleural thickening and enhancement seen posteriorly History of partial mastectomy with XRT in 2000 and complete mastectomy in 2013 with XRT, has undergone annual mastectomy since then Previously followed with Dr. Johnson. Would like to establish with [facility] oncology Consult placed for Dr. Odom No SOB or hypoxia associated with moderate R sided pleural effusion Trial of tramadol for pain control (did not tolerate Percocet well last week - N/V), ice pack PRN Aggressive bowel regimen (4) DM type 1 (diabetes mellitus, type 1): Plan: Poorly controlled DM I, most recent a1c 12 in March 2021 on insulin pump Initial BSG 363 Beta hydroxybutyric acid 33.9 Awaiting Glycemic pharmacy consulted BSG AC HS (5) CKD (chronic kidney disease), stage III: Plan: Cr 1.38 (baseline mid-1s) Monitor BMP daily (6) Hypothyroidism: Plan: Continue levothyroxine DVT Ppx: SQ Lovenox Code status: FULL [facility]CP: [facility] ordered Patient seen in collaboration with Dr. Lozoya. Please see addendum. History of Present Illness Chief Complaint: malaise, N/V, back pain Primary Care Provider: Omar Virgen MD This is a 75yo F with a PMH of poorly controlled T1DM, CKD stage III, hypothyroidism, history of breast cancer status post mastectomy and radiation in 2013 who presents with worsening back pain over the past week. Endorses intermittent back pain over the past few months but was significantly worse over the past week with extension of pain to RUE. Was seen in the [facility] ED last week for RUE pain and had an upper extremity ultrasound performed that was negative for DVT. 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 Received Percocet at that time but it has made her feel nauseated and constipated so she stopped taking. Using ice and Advil for pain with minimal relief. Has had decreased oral intake over the past week. Has started to have normal bowel movements again. Also noting new redness and tenderness at right mastectomy site. Has history of breast cancer with partial [place] [address] Altman followed by complete mastectomy in 2013 due to recurrence in lymph nodes. Received XRT in both 2000 and 2013. Has undergone annual mammogram since then most recently in September 2020. Allergies Allergy/AdvReac Type Severity Reaction Status Date / Time Sulfa (Sulfonamide Allergy Verified 06/07/21 10:21 Antibiotics) Home Medications Medication Instructions Recorded Confirmed Type insulin lispro 100 unit/mL 1 sliding scale dose CONTINUOUS 09/15/15 06/12/21 History subcutaneous cartridge (Humalog SUBCUTANEOUS INFUSION UD #0 dose U-100 Insulin) cholecalciferol (vitamin D3) 25 1,000 unit PO QAM #0 08/04/16 06/12/21 History mcg (1,000 unit) capsule folic acid 1 mg tablet 1 mg PO QAM #0 tab 08/04/16 06/12/21 History sennosides 8.6 mg-docusate sodium 1 tab PO QAM PRN #0 08/04/16 06/12/21 History 50 mg tablet biotin 1 mg tablet 1 mg PO QAM tab 08/01/19 06/12/21 History levothyroxine 100 mcg tablet 100 mcg PO QAM 90 Days #90 tab 11/04/19 06/12/21 History cyanocobalamin (vitamin B-12) 500 500 mcg PO DAILY 06/07/21 06/12/21 History mcg tablet (Vitamin B-12) polyethylene glycol 3350 17 17 g PO DAILY 06/07/21 06/12/21 History gram/dose oral powder (Miralax) acetaminophen 325 mg tablet 650 mg PO Q4H PRN #60 tab 06/10/21 06/12/21 Rx tramadol 50 mg tablet 50 mg PO Q6H PRN #60 tab 06/10/21 06/12/21 Rx ondansetron HCl 8 mg tablet 8 mg PO DAILY PRN 06/12/21 06/12/21 History acetone (urine) test (Ketone Urine #100 ea 06/15/21 Rx Test) lidocaine 5 % topical patch 1 patch TRANSDERMAL QAM #7 ea 06/15/21 Rx Past Med/Surg History Medical History Breast cancer (07/30/14) "s/p mastectomy of right breast and radiation in 2013" CKD (chronic kidney disease), stage III DM type 1 (diabetes mellitus, type 1) Fibromyalgia Hypothyroidism Osteoporosis Vitamin D deficiency Surgical History H/O section (01/04/13) H/O umbilical hernia repair S/P cataract surgery S/P laparoscopic cholecystectomy S/P mastectomy "right breast" Family History Father COPD (chronic obstructive pulmonary disease) CHF (congestive heart failure) Mother Rheumatoid arthritis Son Type 1 diabetes mellitus Social History Smoking Status: Never smoker Second Hand Exposure: Yes (dad many tears ago.); Hx Alcohol Use: No Hx Substance Use: No Preferred Language: Italian Communication Ability: Effective Quality Systems Technician Required: No Beliefs That Will Affect Care: Mormon Mormon Beliefs: Caodaism marital status: Current Living Situation: Spouse How many Children do You have: 6 Other Information That Helps Us Care for You: No Feels Safe at Home: Yes Safety Concerns: Feels Safe At This Time Assistive Devices: None Review of Systems Review of Systems: At least ten systems reviewed and negative except as noted in the HPI. Physical Exam Physical Exam: General Appearance: vitals as above, NAD, sitting up in bed, appears ill, conversing easily Head: normocephalic, atraumatic Eyes: normal inspection, PERRL, conjunctivae normal, anicteric sclerae ENT: external ear and nose normal, oropharynx normal Neck: normal visual inspection, trachea midline, no thyromegaly Respiratory: normal respiratory effort, decreased breath sounds R base, no wheeze, rales or rhonchi. No accessory muscle use Cardiovascular: regular rate, rhythm, no murmur, normal peripheral pulses, no BLE edema. Vessels: no JVD Chest: + R mastectomy site erythematous extending into axilla, non-tender nodules palpated on lateral R chest wall and in axilla Abdomen/GI: normal bowel sounds, soft, nontender, no hepatosplenomegaly Extremities/Musculoskeletal: no cyanosis or clubbing, extremities motor strength 5/5. + diffuse R sided back and RUE pain Neurologic: PERRL, EOMI, accommodation nl, no face palsy, no dysarthria, CN's II-XI intact bilaterally and moves all extremities Psychiatric: A+Ox3, euthymic affect Skin: no rashes, normal color, warm/dry Results & Data Results & Data ([facility]) Vital Signs (Past 12 Hours) Vital Signs Temp Pulse Pulse Resp BP BP Pulse Ox 06/07/21 11:42 87 18 126/68 98 06/07/21 09:42 36.8 C 85 18 151/99 H 98 Laboratory Results Short CBC 06/07/21 06/07/21 Range/Units 10:21 10:21 WBC 9.68 (4.8-10.8) K/uL Hgb 14.2 (12.0-16.0) g/dL Hct 43.1 (37-47) % Plt Count 423 H (130-400) K/uL Creatinine 1.38 H (0.6-1.2) mg/dl BMP 06/07/21 10:21 Sodium 129 L Potassium 5.1 Chloride 96 L Carbon Dioxide 22 BUN 30 H Creatinine 1.38 H Glucose 363 H* Calcium 8.5 Liver Function 06/07/21 Range/Units 10:21 Total Bilirubin 1.1 H (0.2-1) mg/dl AST 34 (15-37) U/L ALT 34 (12-78) U/L Alkaline Phosphatase 151 H (45-117) U/L Albumin 3.1 L (3.4-5.0) gm/dl Diagnostic Findings Abdomen/Pelvis CT 06/07/21 10:11 CT SCAN OF THE ABDOMEN AND PELVIS WITH IV CONTRAST CLINICAL HISTORY: Right-sided back and flank pain. COMPARISON STUDY: Abdominal CT dated 05/31/2018. TECHNIQUE: Following the IV administration of 94 cc of Optiray 320, CT scan of the abdomen and pelvis is performed from the lung bases to the proximal femora. Images are reviewed in the axial, sagittal, and coronal planes. IV contrast was administered without complication. A dose lowering technique was utilized adhering to the principles of ALARA. The examination is degraded by motion artifact, as well as by streak artifact from the right arm which could not be related above the abdomen. CT DOSE: 380.81 mGy.cm FINDINGS: Lung bases: The heart is normal in size and without pericardial effusion. There is a moderate right pleural effusion with associated bibasilar consolidation. Trace pleural effusion is seen on the left. Soft tissue thickening and enhancement of the right pleura is noted posteriorly on image #18. There is a small hiatal hernia. Liver: The contrast-enhanced liver is normal in size, contour, and attenuation. There is mild to moderate central intrahepatic biliary ductal dilatation. The hepatic veins and portal veins are patent. There is evidence of multifocal hepatic metastatic disease with greater than 10 lesions identified. The largest lesion is seen in the right lobe on image #82 and measures 3 cm. Several of these lesions demonstrate internal enhancement. Gallbladder: Surgically absent noting clips in the gallbladder fossa. Spleen: Normal in size and attenuation. There are calcified splenic granulomas. Pancreas: Unremarkable. Adrenal glands: Unremarkable. Kidneys: The contrast enhanced kidneys demonstrate mild cortical atrophy and are without hydronephrosis. The kidneys enhance symmetrically. Abdominal vasculature: The abdominal aorta is normal in course and caliber noting moderate to advanced atherosclerotic calcification. Bowel: Moderate fecal retention is seen throughout the colon. No bowel obstruction is identified. The appendix is well-visualized and normal. Peritoneum/retroperitoneum: There is no intraperitoneal free air or abdominal ascites. There is ill-defined soft tissue in the left retroperitoneal space on image #102. This is located below the left adrenal gland and may represent metastatic disease. Lymphadenopathy: None. Pelvic viscera: The bladder is decompressed and appears circumferentially thick walled. The uterus and adnexa are normal as visualized. Skeletal structures: The skeletal structures are heterogeneously osteopenic. There is evidence of multifocal osteoblastic metastatic disease a lesion in the left aspect of the sacrum image #239 measures 1.7 cm. Additional lesions are seen throughout the spine and within the bony pelvis. Early Learning Teacher lesions are seen in the inferior aspect of the L4 and L5 vertebral bodies on axial images #196 and #234. There are healed right-sided rib fractures. Soft tissues: The right breast is surgically absent. Foci of dermal thickening and nodularity are seen within the right chest wall on images #12 and #22. Soft tissue edema within the right chest wall may be treatment related. IMPRESSION: 1. There is evidence of multifocal hepatic metastatic disease. Correlate with oncological history. 2. There is evidence of multifocal osteoblastic metastatic disease. 3. The right breast is surgically absent. There are foci of dermal thickening a nd nodularity within the right chest wall at the operative site. This also likely represents neoplasm. 4. There is ill-defined soft tissue in the upper retroperitoneal space below the level of the left adrenal gland. This also likely represents neoplasm. 5. Moderate constipation. 6. The bladder wall appears circumferentially thickened. Correlate with clinical findings and urinalysis. 7. Moderate right pleural effusion with associated right basilar consolidation. This may represent a metastatic effusion as there is pleural thickening and enhancement seen posteriorly. Consolidation likely represents atelectasis and clinical correlation will be required. 8. Trace left pleural effusion. 9. Additional findings as above. ACT 112: Negative or not required by law. Electronically signed by: Quincy Barreto M.D. 06/07/2021 11:44 AM Code Status & VTE Plan VTE Prophylaxis Plan VTE Prophylaxis will be ordered: Yes Supervising Physician Co-Signing Physician Notes Pt was seen and examined. Agreed with Chantal ARZATE exam, assessment and plan. 75yo F with a PMH of poorly controlled T1DM, CKD stage III, hypothyroidism, history of breast cancer status post mastectomy and radiation in 2013 who presents with worsening back pain. Pt said that for the past month she has been having intermittent back pain radiating to her RUE. She was seen in the [facility] ED last week for RUE pain and had an upper extremity ultrasound performed that was negative for DVT. Percocet script was given at that time but it has made her feel nauseated and constipated so she stopped taking. CT abd/pelvis showed evidence of multifocal hepatic metastatic disease. There is evidence of multifocal osteoblastic metastatic disease.There is ill-defined soft tissue in the upper retroperitoneal space below the level of the left adrenal gland. This also likely represents neoplasm. Moderate constipation.Moderate right pleural effusion with associated right basilar consolidation. This may represent a metastatic effusion as there is pleural thickening and enhancement seen posteriorly. Will start on tramadol for pain. Will consult Oncology. Will discuss CT finding with pulmonolgy for the pleural effusion for possible thoracentesis. Continue monitor closely. MD Devora
--- NOTE | 2021-06-07 14:43 | Electrocardiogram Report ---
Test Reason : Blood Pressure : / mmHG Vent. Rate : 089 BPM Atrial Rate : 089 BPM P-R Int : 154 ms QRS Dur : 060 ms QT Int : 360 ms P-R-T Axes : 043 -21 029 degrees QTc Int : 438 ms Sinus rhythm with Premature atrial complexes Otherwise normal ECG When compared with ECG of 22-OCT-2019 06:29, Premature atrial complexes are now Present Confirmed by Chaz Broderick ([id number]) on 06/07/2021 2:43:23 PM Referred By: REFERRED SELF Confirmed By:Chaz Broderick
[2021-06-07] MEDS ORDERED: DOCUSATE SODIUM/SENNA 50/8.6MG TAB PO PRN (15:28)
[2021-06-07] MEDS ORDERED: ACETAMINOPHEN 325 MG TAB PO PRN (15:28)
[2021-06-07] MEDS ORDERED: ONDANSETRON INJ 2 MG/ML 2 ML VIAL ONE (15:44)
[2021-06-07] MEDS ORDERED: INSULIN HUMAN LISPRO (humaLOG) 100 UNITS/ML VIAL SC PRN (16:00)
[2021-06-07] MEDS: ENOXAPARIN INJ 40 MG/0.4 ML SYR SQ SCH (17:27)
--- NOTE | 2021-06-07 19:29 | XRay Report ---
XR humerus RT 2V CLINICAL HISTORY: worsening pain, met breast ca COMPARISON: Right humerus radiographs November 12, 2008. FINDINGS: Note is made of a healed fracture of the proximal to mid shaft of the right humerus status post internal fixation with plate and screws. The hardware is intact. No acute fracture within the r ight humerus is identified. No suspicious osseous lesion within the right humerus is identified by ra diography. Right upper arm soft tissue swelling is noted. A right pleural effusion is better depicted on abdominal CT of June 07, 2021. IMPRESSION: 1. No acute fracture within the right humerus. 2. Healed right humeral fracture status post internal fixation. ACT 112: Negative or not required by law. Electronically signed by: Florentin Ware M.D. 06/07/2021 7:27 PM
[2021-06-07] MEDS: traMADol HCL 50 MG TABLET PO PRN (20:38)
[2021-06-07] MEDS: POLYETHYLENE (MIRALAX) 17 GM PACK PO PRN (20:38)
[2021-06-07] MEDS: DOCUSATE SODIUM 100 MG CAP PO SCH (20:39)
[2021-06-07 21:28] LABS: Appearance Urine Clear (Clear); Bilirubin Urine Negative (Negative); Blood Urine Negative (Negative); Color Urine Yellow; Glucose Urine UA 1+ (Negative); Ketones Urine 1+ (Negative); Leukocyte Esterase Urine Negative (Negative); Nitrite Urine Negative (Negative); Protein Urine Negative (Negative); Specific Gravity Urine > 1.045 (1.000-1.030); Urobilinogen Urine Negative (Negative)
[2021-06-08] MEDS: LEVOTHYROXINE SODIUM 100 MCG TABLET PO SCH (06:07)
[2021-06-08 06:38] LABS: Hemoglobin 15.1 g/dL (12.0-16.0); Mean Corpuscular Hemoglobin 28.9 pg (25-34); Mean Corpuscular Hgb Conc 32.8 g/dL (32-36); Mean Platelet Volume 10.8 fL (7.4-10.4); Platelet Count 450 K/uL (130-400); RDW Coefficient of Variation 13.3 % (11.5-14.5); Red Blood Count 5.23 M/uL (4.2-5.4); White Blood Count 8.48 K/uL (4.8-10.8)
[2021-06-08 07:11] LABS: BUN Creatinine Ratio 18.1 (10-20); Calcium 8.5 mg/dl (8.5-10.1); Creatinine Clr Calc Pharmacy 27.5 ml/min; Est GFR (African American) 37.8 ml/min; Est GFR (Non-African American) 32.6 ml/min
[2021-06-08] MEDS: FOLIC ACID 1 MG TAB PO SCH (09:31)
[2021-06-08] MEDS: CHOLECALCIFEROL 1,000 UNITS 25 MCG TAB PO SCH (09:31)
[2021-06-08] MEDS: DOCUSATE SODIUM 100 MG CAP PO SCH ×2 (09:31→20:31)
[2021-06-08] MEDS: CYANOCOBALAMIN 500 MCG TABLET (VITAMIN B-12) PO SCH (09:31)
[2021-06-08] MEDS: POLYETHYLENE (MIRALAX) 17 GM PACK PO PRN (10:11)
--- NOTE | 2021-06-08 11:46 | Pharmacy Report ---
Pharmacy Glycemic Short Note 2 - Date of Service June 08, 2021 - Glycemic Short BSG Results (Last 24 hours): 06/07/21 06/07/21 06/07/21 12:11 14:59 15:40 Glucose POC Glucose 262 H 129 H 103 H 06/07/21 06/07/21 06/07/21 20:02 20:04 21:15 Glucose POC Glucose 67 L* 65 L* 85 06/07/21 06/08/21 06/08/21 23:54 01:43 06:16 Glucose 113 H POC Glucose 181 H 154 H 06/08/21 06/08/21 07:43 11:27 Glucose POC Glucose 95 223 H OUTPATIENT ANTIDIABETIC REGIMEN: * Humalog pump - up to 70 units total daily * [id number]: 0.725 units/hr * [id number]: 0.9 units/hr ASSESSMENT: * 75 yo F with *type 1* diabetes admitted with N/V and hyperglycemia * Outpatient insulin pump continued on admission. BSG's trended down from 363 mg/dL on admission to 65 mg/dL at HS. Patient adjusted pump settings for basal to 0.725 units/hr for 24 hours (instead of offset schedule above), which is about a 15% reduction in total daily basal dose. AM fasting BSG 95 mg/dL - reasonable for now to continue lower dose and this was discussed with RN (Dorothy) * BSG at lunch with notable increase today, however, that can be attributed to the patient eating breakfast and not bolusing additional insulin (reported by Dorothy) * OK to continue patient-managed Humalog pump for now PLAN FOR INPATIENT GLYCEMIC CONTROL: * Continue patient-managed Humalog pump. Basal rate currently lower than home regimen at 0.725 units/hr over 24 hours
[2021-06-08] MEDS: traMADol HCL 50 MG TABLET PO PRN ×2 (13:01→20:30)
--- NOTE | 2021-06-08 15:19 | Pulmonary Consultation ---
Date of Consultation June 08, 2021 Assessment & Plan (1) History of breast cancer: (2) Shortness of breath: (3) Chest heaviness: (4) Pleural effusion: --Right-sided pleural effusion Never had any effusions in the past Did not have thoracentesis in the past Given the history of breast cancer the possibility of it being malignant is high --History of breast cancer With relapse x2 This is likely the third relapse Plan: Patient is not on any blood thinners Patient did not get Lovenox since coming to the hospital Patient does have right-sided pleural effusion which is new Possibility of malignant pleural effusion is high Plan for thoracentesis later today. Risk and benefit of the procedure explained to the patient as well as patient's Please note the above document was generated using voice recognition software. It may contain grammatical, syntax or spelling errors.Any formal questions or concerns about the content, text or information contained within the body of this dictation should be directly addressed to the provider for clarification. History of Present Illness Attending Physician: Fernando Lozoya MD History of Present Illness 75-year-old female past medical history of breast cancer initially in 2000 s/p lumpectomy and radiation, recurrence in 2013 s/p mastectomy radiation again presented to the hospital with complaints of back pain. Patient has significant lymphedema of the right upper extremity as well. Patient had CT abdomen pelvis which showed moderate right-sided pleural effusion. Pulmonary consulted for the same At the time of examination patient's was in the room. Patient said that she does have chest heaviness on the right side. She gets short of breath on moderate exertion Denies any chest pain No coughing, no fever or chills. No dysuria, no diarrhea. She does complain of discomfort on the right axilla where there is scarring. Right upper extremity is edematous likely from lymphedema Social history: Non-smoker, no illicit drug use. Allergies Allergy/AdvReac Type Severity Reaction Status Date / Time Sulfa (Sulfonamide Allergy Verified 06/07/21 10:21 Antibiotics) Home Medications Medication Instructions Recorded Confirmed Type insulin lispro 100 unit/mL 1 sliding scale dose CONTINUOUS 09/15/15 06/07/21 History subcutaneous cartridge (Humalog SUBCUTANEOUS INFUSION UD #0 dose U-100 Insulin) cholecalciferol (vitamin D3) 25 1,000 unit PO QAM #0 08/04/16 06/07/21 History mcg (1,000 unit) capsule folic acid 1 mg tablet 1 mg PO QAM #0 tab 08/04/16 06/07/21 History sennosides 8.6 mg-docusate sodium 1 tab PO QAM PRN #0 08/04/16 06/07/21 History 50 mg tablet ibuprofen 200 mg tablet 200 mg PO Q6H PRN 04/04/19 06/07/21 History biotin 1 mg tablet 1 mg PO QAM tab 08/01/19 06/07/21 History levothyroxine 100 mcg tablet 100 mcg PO QAM 90 Days #90 tab 11/04/19 06/07/21 History cyanocobalamin (vitamin B-12) 500 500 mcg PO DAILY 06/07/21 06/07/21 History mcg tablet (Vitamin B-12) polyethylene glycol 3350 17 17 g PO DAILY 06/07/21 06/07/21 History gram/dose oral powder (Miralax) Patient History Medical History Breast cancer (07/30/14) "s/p mastectomy of right breast and radiation in 2013" CKD (chronic kidney disease), stage III DM type 1 (diabetes mellitus, type 1) Fibromyalgia Hypothyroidism Osteoporosis Vitamin D deficiency Surgical History H/O section (01/04/13) H/O umbilical hernia repair S/P cataract surgery S/P laparoscopic cholecystectomy S/P mastectomy "right breast" Family History Father COPD (chronic obstructive pulmonary disease) CHF (congestive heart failure) Mother Rheumatoid arthritis Son Type 1 diabetes mellitus Social History Smoking Status: Never smoker Second Hand Exposure: Yes (dad many tears ago.); Do You Dip or Chew Tobacco: No; Hx Alcohol Use: No Hx Substance Use: No Preferred Language: Guyanese Communication Ability: Effective Line Tender Required: No Beliefs That Will Affect Care: Taoist Taoist Beliefs: Mosque marital status: Current Living Situation: Spouse Other Information That Helps Us Care for You: Yes (Possible assistance at home after discharge.) Feels Safe at Home: Yes Safety Concerns: Feels Safe At This Time Assistive Devices: Cane and Walker Review of Systems Review of Systems: All systems reviewed & are unremarkable except as noted in HPI & below Physical Exam Physical Exam: Constitutional: No acute distress HEENT: EOMI, PERRLA Respiratory system: Decreased air entry on the right side, no wheeze, no rhonchi, no crackles CVS: S1-S2 positive, no murmurs or gallops Abdomen: Soft, nontender, nondistended, positive bowel sounds x4 Extremities: +2 pulses bilaterally radialis/ dorsalis pedis, no cyanosis, no edema, swelling of the right arm with pitting edema, right axillary scar with mild erythema Neuro: Awake alert oriented x3 Psych: Normal mood and affect G/U: No [place] Skin: no rashes, warm and dry Lymphatic: no cervical or axillary lymphadenopathy Results & Data Results & Data ([facility]) Vital Signs (Past 12 Hours) Vital Signs Temp Pulse Pulse Resp BP Pulse Ox 06/08/21 14:56 76 06/08/21 11:15 36.5 C 81 16 114/73 90 06/08/21 07:33 67 06/08/21 07:29 36.6 C 79 16 116/66 91 06/08/21 04:04 36.7 C 73 18 126/73 95 06/08/21 06:16 06/08/21 06:16 PG Care Time/CCT Total # of Minutes Spent Total Time Spent with Patient: Total time spent is greater than 50% in coordination of care (as documented) at patient's floor/unit and/or counseling patient: Coding Level of Care Code 29078 Initial Inpt Care Lvl 3 Diagnoses History of breast cancer Z85.3 Shortness of breath R06.02 Chest heaviness R07.89 Pleural effusion J90
--- NOTE | 2021-06-08 17:27 | Procedure Note ---
Procedure Note Date of Service June 08, 2021 Note Procedure: Diagnostic therapeutic ultrasound-guided catheter thoracentesis [employer] Principal: Dr. Nereyda Knwoles Indication: Right-sided pleural effusion Consent: Signed by patient and verified with timeout prior to procedure Anesthesia: 1% lidocaine without epinephrine local. Procedure: Consent was verified and timeout performed. Appropriate imaging studies were reviewed prior to the procedure. Patient was placed in a seated position and limited thoracic ultrasound was performed of the right chest. See separate imaging. Appropriate site above the diaphragm for thoracentesis was selected. The skin was prepped and draped in normal sterile fashion. Lidocaine was used for local analgesia. Fluid was aspirated via the finder needle. A small skin deborah was made with the scalpel and the catheter over the needle apparatus was advanced over the rib into the pleural space. Using the syringe one-way valve system, a total of 1400 mL's of serous fluid was removed. The catheter was removed and observed to be intact. A sterile dressing was applied. Post procedure chest x-ray was ordered. Fluid was sent for labs, culture and cytology. Complications: None Blood loss: None Coding CPT Codes Pulmonary/Thoracic - Pulmonary and Thoracic: 65391 Thoracentesis w imaging ([id number]) [facility] Procedure Codes (Charges) Pulmonary/Thoracic Procedure 1: Pulmonary and Thoracic: 94784 Thoracentesis w imaging
[2021-06-08 17:56] LABS: Glucose Pleural Fluid 219 mg/dl
[2021-06-08 18:03] LABS: Amylase Pleural Fluid 18 U/L; LDH Pleural Fluid 82 U/L; Total Protein Pleural Fluid 3.5 g/dl
--- NOTE | 2021-06-08 18:13 | XRay Report ---
SINGLE VIEW CHEST CLINICAL HISTORY: Status post thoracentesis. FINDINGS: An AP, portable, upright chest radiograph is compared to study dated 10/21/2019. The examina tion is degraded by portable technique and patient rotation. The cardiomediastinal silhouette is unr emarkable noting atherosclerotic calcification of the thoracic aorta. Chronic interstitial thickening is similar to previous. There is trace right pleural effusion. Atelectasis is noted at both lung bas es. There is no airspace consolidation typical for pneumonia. No pneumothorax is seen. The skeletal s tructures are osteopenic. There is chronic posttraumatic deformity and postoperative change seen in t he right humerus. IMPRESSION: 1. No pneumothorax is identified. 2. Trace right pleural effusion. ACT 112: Negative or not required by law. Electronically signed by: Quincy Barreto M.D. 06/08/2021 6:12 PM
[2021-06-08 18:15] LABS: Bilirubin,Total 0.3 mg/dl (0.2-1); Total Protein 6.9 gm/dl (6.4-8.2)
--- NOTE | 2021-06-08 18:37 | Hospitalist Progress Note ---
Date of Service June 08, 2021 Assessment & Plan (1) Back pain with radiation: Plan: 75yo F with a PMH of poorly controlled T1DM, CKD stage III, hypothyroidism, history of breast cancer status post mastectomy and radiation in 2013 who presents with worsening back pain Possible related to metastatic cancer CT abd/pelvis done showed evidence of multifocal osteoblastic metastatic disease. Continue pain control (2) Metastatic cancer: (3) History of breast cancer: Plan: History of partial mastectomy with XRT in 2000 and complete mastectomy in 2013 with XRT, has undergone annual mastectomy since the Previously followed with Dr. Johnson. Would like to establish with [facility] oncology CT abd/pelvis showed evidence of multifocal hepatic metastatic disease. There is evidence of multifocal osteoblastic metastatic disease.There are foci of dermal thickening and nodularity within the right chest wall at the operative site. This also likely represents neoplasm.There is ill-defined soft tissue in the upper retroperitoneal space below the level of the left adrenal gland. Oncology consulted - Pending (4) Pleural effusion: Plan: Possible related to malignancy CT showed moderate right pleural effusion with associated right basilar consolidation. Pulm on board case discussed with Dr. Kay that plan for Thoracentesis today S/P thoracentesis where a total of 1400 mL's of serous fluid was removed. Will follow cytology (5) DM type 1 (diabetes mellitus, type 1): Plan: Poorly controlled DM I, most recent a1c 12 in March 2021 on insulin pump Initial BSG 363 Beta hydroxybutyric acid 33.9 Pharmacy on board for glycemic management BSG [facility] (6) CKD (chronic kidney disease), stage III: Plan: Cr 1.38 (baseline mid-1s) Creatinine 1.5 today Monitor BMP daily (7) Hypothyroidism: Plan: Continue levothyroxine DVT Ppx: SQ Lovenox Code status: FULL PCP: [facility] Dispo: A Will discharge once medically stable Admission and Anticipated Discharge Date Admission Date: June 07, 2021 Subjective Pt was seen and examined Lying in bed with no distress with at bedside Pt said that she feels alittle better Denies any chest pain, palpitation, dizziness and fever Physical Exam Physical Exam: General- No acute distress Head- atraumatic Eyes- PERRL, EOMI, ENT- oropharynx clear Neck- supple, no JVD Lungs- decrease breath sound in Left Lobe Heart- regular rhythm; no murmur Abdomen- normal bowel sounds, soft, nontender Extremities- no calf tenderness Neuro- alert, oriented x 3; PERRL, EOMI; no facial palsy; no dysarthria Skin- warm & dry Results & Data Results & Data ([facility]) Vital Signs (Past 12 Hours) Vital Signs Temp Pulse Pulse Resp BP Pulse Ox 06/08/21 15:17 36.9 C 83 16 108/65 94 06/08/21 14:56 76 06/08/21 11:15 36.5 C 81 16 114/73 90 06/08/21 07:33 67 06/08/21 07:29 36.6 C 79 16 116/66 91
[2021-06-08 19:25] LABS: Appearance Pleural Fluid CLEAR; Basophils, Fluid 0 %; Color Pleural Fluid PALE YELLOW; Eosinophils, Fluid 0 %; Lymphocytes, Fluid 80 %; Mono,Macrophage,Mesothelial 18 %; Neutrophils, Fluid 2 %; RBC Pleural Fluid (A) < 3000 /uL; Source Pleural Fluid RIGHT LUNG; WBC Pleural Fluid (A) 507 /uL
[2021-06-08] MEDS: ONDANSETRON INJ 2 MG/ML 2 ML VIAL IV PRN (21:24)
[2021-06-09] MEDS: LEVOTHYROXINE SODIUM 100 MCG TABLET PO SCH (05:43)
[2021-06-09 07:00] LABS: Hematocrit (blood only) 45.1 % (37-47); Hemoglobin 14.8 g/dL (12.0-16.0); Mean Corpuscular Hemoglobin 29.1 pg (25-34); Mean Corpuscular Hgb Conc 32.8 g/dL (32-36); Mean Corpuscular Volume 88.6 fL (80-100); Mean Platelet Volume 10.4 fL (7.4-10.4); Platelet Count 337 K/uL (130-400); RDW Coefficient of Variation 13.2 % (11.5-14.5); RDW Standard Deviation 43.1 fL (36.4-46.3); Red Blood Count 5.09 M/uL (4.2-5.4); White Blood Count 8.72 K/uL (4.8-10.8)
[2021-06-09 07:44] LABS: BUN Creatinine Ratio 18.9 (10-20); Creatinine Clr Calc Pharmacy 36.4 ml/min; Est GFR (African American) 53.2 ml/min; Est GFR (Non-African American) 45.9 ml/min; Potassium 4.4 mmol/L (3.5-5.1)
[2021-06-09] MEDS: CYANOCOBALAMIN 500 MCG TABLET (VITAMIN B-12) PO SCH (08:33)
[2021-06-09] MEDS: POLYETHYLENE (MIRALAX) 17 GM PACK PO PRN (08:33)
[2021-06-09] MEDS: CHOLECALCIFEROL 1,000 UNITS 25 MCG TAB PO SCH (08:33)
[2021-06-09] MEDS: FOLIC ACID 1 MG TAB PO SCH (08:33)
[2021-06-09] MEDS: DOCUSATE SODIUM 100 MG CAP PO SCH ×2 (08:35→20:48)
--- NOTE | 2021-06-09 10:29 | Pulmonology Progress Note ---
Date of Service June 09, 2021 Assessment & Plan (1) History of breast cancer: (2) Shortness of breath: (3) Chest heaviness: (4) Pleural effusion: Plan: --Right-sided pleural effusion S/p thoracentesis 06/08/21, lymphocytic, exudative as per light's criteria as per total protein Pleural fluid: LDH 82, total protein 3.5, pH 7.42, glucose 219 Serum: LDH 188, protein 6.9 --History of breast cancer With relapse x2 This is likely the third relapse Plan: Follow-up cytology No further recommendation from pulmonary perspective. Please call directly with any questions Case discussed with Dr. Lemon Please note the above document was generated using voice recognition software. It may contain grammatical, syntax or spelling errors.Any formal questions or concerns about the content, text or information contained within the body of this dictation should be directly addressed to the provider for clarification. Admission and Anticipated Discharge Date Admission Date: June 07, 2021 Subjective Patient seen and examined at bedside. No acute distress, no adverse events overnight. Patient says she is feeling much better. Breathing is much easier. Denies any chest pain, no shortness of breath. Does complain of discomfort in the right arm. No headache, no nausea, no vomiting. Good appetite. Review of Systems Review of Systems: All systems reviewed & are unremarkable except as noted in Subjective Physical Exam Physical Exam: Constitutional: No acute distress HEENT: EOMI, PERRLA Respiratory system: Decreased air entry bilaterally, no wheeze, rhonchi, positive crackles right lower lobe CVS: S1-S2 positive, no murmurs or gallops Abdomen: Soft, nontender, nondistended, positive bowel sounds x4 Extremities: +2 pulses bilaterally radialis/ dorsalis pedis, no cyanosis, no edema, swelling of the right arm with pitting edema, right axillary scar with mild erythema Neuro: Awake alert oriented x3 Psych: Normal mood and affect G/U: No [place] Skin: no rashes, warm and dry Lymphatic: no cervical or axillary lymphadenopathy Results & Data Results & Data ([facility]) Vital Signs (Past 12 Hours) Vital Signs Temp Pulse Pulse Resp BP Pulse Ox 06/09/21 07:00 36.6 C 89 20 114/67 96 06/09/21 03:00 36.7 C 83 20 124/68 95 06/09/21 00:53 77 06/09/21 06:50 06/09/21 06:50 PG Care Time/CCT Total # of Minutes Spent Total Time Spent with Patient: Total time spent is greater than 50% in coordination of care (as documented) at patient's floor/unit and/or counseling patient: Coding Level of Care Code 86617 Subseq Hosp Care Lvl 2 Diagnoses History of breast cancer Z85.3 Shortness of breath R06.02 Chest heaviness R07.89 Pleural effusion J90
[2021-06-09] MEDS: ONDANSETRON INJ 2 MG/ML 2 ML VIAL IV PRN (11:11)
--- NOTE | 2021-06-09 11:12 | Hospitalist Progress Note ---
Date of Service June 09, 2021 Assessment & Plan (1) Back pain with radiation: (2) Metastatic cancer: (3) History of breast cancer: Plan: History of partial mastectomy with XRT in 2000 and complete mastectomy in 2013 with XRT, has undergone annual mastectomy since the Previously followed with Dr. Johnson. Would like to establish with [facility] oncology CT abd/pelvis showed evidence of multifocal hepatic metastatic disease. There is evidence of multifocal osteoblastic metastatic disease.There are foci of dermal thickening and nodularity within the right chest wall at the operative site. This also likely represents neoplasm.There is ill-defined soft tissue in the upper retroperitoneal space below the level of the left adrenal gland. I discussed CT findings with patient and who was at bedside. Awaiting oncology's evaluation Patient had some questions about definitive diagnosis, prognosis and treatment. I explained that findings so far suggest metastatic disease but oncologist will be able to answer other questions. (4) Pleural effusion: Plan: Possible related to malignancy CT showed moderate right pleural effusion with associated right basilar consolidation. S/P thoracentesis where a total of 1400 mL's of serous fluid was removed. Per pulm, fluid is exudative Will follow up fluid cytology (5) DM type 1 (diabetes mellitus, type 1): Plan: Poorly controlled DM I, most recent a1c 12 in March 2021 on insulin pump Initial BSG 363 Pharmacy on board for glycemic management BG this AM is 116 Provided basic DM education BSG [facility] (6) CKD (chronic kidney disease), stage III: Plan: Cr 1.38 (baseline mid-1s) Creatinine 1.17 today Monitor BMP daily (7) Hypothyroidism: Plan: Continue levothyroxine DVT Ppx: SQ Lovenox was held for paracentesis. Resume Code status: FULL PCP: [place] Possible dc tomorrow depending on oncology evaluation Plan: Encouraged to ambulate today Continue incentive spirometry Admission and Anticipated Discharge Date Admission Date: June 07, 2021 Subjective 75-year-old woman with DM type I, CKD 3, hypothyroidism, breast cancer status post mastectomy and radiation in 2013 who presented with worsening back pain, nausea, malaise. Found to have metastatic disease on CT abdomen pelvis to the liver, osteoblastic and moderate right pleural effusion. Status post right thoracentesis of 1.4 L yesterday by pulmonology. Patient seen and examined this morning. Reports improved shortness of breath. Reports cough only when using incentive spirometer. Reports pain over the right chest wall with some redness since December. Reports some nausea and weakness. Review of Systems Constitutional: no fever and no chills Eyes: no problem reported Ear, Nose, Mouth, Throat: no problem reported Respiratory: Some cough with use of incentive spirometer Improved SOB Cardiovascular: no chest pain Gastrointestinal: + nausea; no abdominal pain and no vomiting Genitourinary: no dysuria and no urinary urgency Musculoskeletal: Right upper extremity swelling and pain (improved today compared to yesterday) Integumentary: Right chest wall redness Neurologic: + generalized weakness; no dizziness and no headache(s) Psychiatric: no depression and no anxiety Physical Exam Constitutional: + well hydrated; no acute distress Eyes: PERRL, conjunctivae normal, anicteric sclerae ENMT: external ear and nose normal, oropharynx normal Respiratory: normal respiratory effort; no respiratory distress Auscultation: + diminished lung sounds (Right lung base); no crackles and no wheezes Cardiovascular: Rate/Rhythm: regular rate and regular rhythm S1 S2 Chest (Breasts): Additional Comments: Scar over right mastectomy site. Erythema indurated skin over right anterior chest. No open wounds/ulcers Gastrointestinal (Abdomen): normal bowel sounds, soft, nontender, no hepatosplenomegaly Musculoskeletal: no cyanosis or clubbing, extremities motor strength 5/5 Neurologic: PERRL, EOMI, accommodation nl, no face palsy, no dysarthria Psychiatric: A+Ox3, euthymic affect Results & Data Results & Data ([facility]) Vital Signs (Past 12 Hours) Vital Signs Temp Pulse Pulse Resp BP Pulse Ox 06/09/21 08:00 75 06/09/21 07:00 36.6 C 89 20 114/67 96 06/09/21 03:00 36.7 C 83 20 124/68 95 06/09/21 00:53 77 Laboratory Results Abnormal lab results 06/08/21 06/08/21 06/08/21 Range/Units 11:27 17:22 17:27 Sodium (136-145) mmol/L BUN (7-18) mg/dl Glucose (70-99) mg/dl POC Glucose 223 H 223 H (70-99) mg/dl Calcium (8.5-10.1) mg/dl Albumin (3.4-5.0) gm/dl Pleural pH 7.42 H (7.3-7.4) 06/08/21 06/08/21 06/09/21 Range/Units 17:40 20:22 03:24 Sodium (136-145) mmol/L BUN (7-18) mg/dl Glucose (70-99) mg/dl POC Glucose 239 H 193 H (70-99) mg/dl Calcium (8.5-10.1) mg/dl Albumin 3.0 L (3.4-5.0) gm/dl Pleural pH (7.3-7.4) 06/09/21 06/09/21 Range/Units 06:50 07:36 Sodium 132 L (136-145) mmol/L BUN 22 H (7-18) mg/dl Glucose 142 H (70-99) mg/dl POC Glucose 116 H (70-99) mg/dl Calcium 8.0 L (8.5-10.1) mg/dl Albumin (3.4-5.0) gm/dl Pleural pH (7.3-7.4) (1) Metastatic cancer Area of secondary neoplastic involvement: bone Qualified Code(s): C79.51 - Secondary malignant neoplasm of bone
[2021-06-09] MEDS: traMADol HCL 50 MG TABLET PO PRN ×2 (12:58→20:50)
[2021-06-09] MEDS: ENOXAPARIN INJ 40 MG/0.4 ML SYR SQ SCH (18:33)
--- NOTE | 2021-06-10 03:36 | Consultation Report ---
DATE OF SERVICE: 06/09/2021. REASON FOR CONSULTATION: Probable metastatic breast cancer. HISTORY OF PRESENT ILLNESS: The patient is a very pleasant 75-year-old postmenopausal female who was admitted to [facility] on 06/07/2021 with worsening back pain over the past week. She readily admits back pain has been hampering her over the past several months. However, now the pain has extended to her right upper extremity. She was seen at [facility] ED last week for right upper extremity pain. An ultrasound performed at that time was negative for DVT. Unfortunately, because of her history of breast cancer and subsequent mastectomy, she suffers from right upper extremity lymphedema, which has been problematic. She received pain medication that unfortunately while it helped the pain a bit, also made her nauseated, constipated and thus she discontinued it. Unfortunately, there were concerning findings on CT scan of the abdomen and pelvis including multifocal hepatic disease, osteoblastic metastatic disease, and perhaps even involved the left adrenal gland. This lady has a remote history of breast cancer x2. She estimates her first breast cancer was diagnosed roughly 10+ years ago where she underwent lumpectomy followed by radiation therapy, but does not recall any endocrine therapy. That said, she apparently relapsed about 5 years ago. Again, was not offered adjuvant chemotherapy; however, did receive radiation therapy, but no endocrine therapy either. I don't have the official path reports, which I will search for and review. This lady also had a moderate right pleural effusion, necessitating pulmonary consultation and thoracentesis, which was performed yesterday, yielding 1400 mL of fluid. Hopefully, cytology was sent and we will await results. In short, Ms. Dwyer presents with radiographic and clinical apparent metastatic carcinoma, most likely breast primary. I have been asked to discuss possible treatment options with her and prognosis moving forward. PAST MEDICAL HISTORY: Significant for hypothyroidism, chronic kidney disease, type 1 diabetes mellitus and metastatic carcinoma, primary unknown, fibromyalgia and osteoporosis. PAST SURGICAL HISTORY: Includes mastectomy, right breast, laparoscopic cholecystectomy, status post cataract surgery, umbilical hernia repair, and section. MEDICATIONS: Folic acid 1 mg p.o. q. daily, ibuprofen 200 mg p.o. q.6 hours p.r.n., levothyroxine 100 mcg p.o. daily, vitamin B12 500 mcg p.o. daily, insulin sliding scale. ALLERGY: To SULFA. FAMILY HISTORY: Father of COPD and CHF. Mother , attributable to rheumatoid arthritis. Son suffers from type 1 diabetes mellitus. SOCIAL HISTORY: The patient resides with her spouse. She is a nonsmoker and nondrinker, nonillicit drug user. REVIEW OF SYSTEMS: CONSTITUTIONAL: Positive for mild anorexia, weight loss, uncertain. No fevers, chills or sweats. SKIN: No rashes or lesions. No history of dermatoses. HEENT: Denies headaches, lightheadedness or dizziness. No dysphagia or sore throat. No acute visual or hearing deficits. No sinus symptoms, sore throat or dysphagia. LYMPH: Positive for right upper extremity lymphedema attributable to prior mastectomy. HEART: No history of coronary artery disease, no angina or palpitations. PULMONARY: No history of COPD. She is not short of breath, dyspneic or orthopneic. No cough or hemoptysis. GASTROINTESTINAL: Negative for abdominal pain, nausea, vomiting, diarrhea or constipation. GENITOURINARY: No hematuria, dysuria, urinary incontinence. PSYCHIATRIC: Negative for anxiety, depression, or psychoses. MUSCULOSKELETAL: Radiographically evident osseous metastatic disease and back pain. ENDOCRINE: Positive for type 1 diabetes mellitus. NEUROLOGIC: Negative for seizure, stroke or migraine headache. HEMATOLOGIC: Negative for anemia, thrombophilia or bleeding diathesis. PHYSICAL EXAMINATION: GENERAL: A very pleasant 75-year-old female, awake, alert and appropriate, in no acute distress. VITAL SIGNS: Temperature 36.7, pulse 79, respiratory rate 16, blood pressure 103/61. SKIN: Warm, dry, noncyanotic without petechia, rash or ecchymosis. HEENT: Atraumatic, normocephalic. Eyes: PERRLA. EOMI. Sclerae are nonicteric. No conjunctival injection. Nares are patent without rhinorrhea or discharge. Throat clear. Tongue midline. Mucous membranes are moist. No buccal lesions or ulcerations. NECK: Supple without JVD or thyromegaly. LYMPH: No cervical, supraclavicular, axillary or inguinal palpable nodes. HEART: Regular rate and rhythm. No clicks, rubs, murmurs or gallops. LUNGS: Clear to auscultation bilaterally. ABDOMEN: Soft, nontender, nondistended, without palpable hepatosplenomegaly. EXTREMITIES: No calf tenderness or swelling in the lower extremities. She has significant swelling in the right upper extremity due to chronic lymphedema. NEUROLOGICALLY: She is awake, alert and oriented x3. Cranial nerves are grossly intact. LABORATORY DATA: WBC count 8720, hemoglobin 14.8, platelet count 337,000. Sodium 132, potassium 4.4, chloride 102, carbon dioxide 24, BUN 22, creatinine 1.17. CA 15-3 and CA 27-29 are pending. IMPRESSION: 1. Metastatic carcinoma, probable breast primary. 2. Intractable back pain attributable to osseous metastatic disease. 3. Right-sided pleural effusion. 4. Type 1 diabetes mellitus. 5. Chronic kidney disease. PLAN: I engaged in a helpful discussion with the patient at bedside this evening. She outlined history of 2 prior breast cancers, both within the right breast she estimates between 10 and 15 years ago with the initial diagnosis and in relapse approximately 5 years ago, neither of which time she received adjuvant chemotherapy; however, did receive radiation from her original lumpectomy on initial diagnosis.Meredith was placed on Tamoxifen for a brief period and discontinued because of vaginal bleeding. She was not offered an aromatase inhibitor? She presented with right upper extremity pain attributable to lymphedema and radiographic studies subsequently revealed diffuse metastatic disease involving the bony skeleton and liver and possibly left adrenal gland. Right-sided pleural effusion was also noted, subsequently drained by the pulmonary service yielding 1400 mL fluid. We will await cytology result and suspect the effusion is malignant. I explained to the patient before treatment recommendations are made, tumor characteristics from her prior cancer and her cytology need to be analyzed. ER, ME, and Her-2-juvenal status specifically.. The patient is chemotherapy naive and thus several options could potentially be offered.. That said, it would be prudent to proceed with MediPort placement in anticipation for cytotoxic chemotherapy. Oral therapies are a potential option.. However, from this point forward Meredith would require some form of treatment chronically until she succumbs to the disease. During the interview advised she suffers from stage IV disease with visceral involvement, which in itself makes her prognosis poorer versus metastatic breast cancer with bony metastatic disease solely. Questions and concerns were answered We will reconvene in the outpatient arena to discuss specifics. I see no reason she cannot be discharged in the next 24 to 48 hours if there are no outstanding medical issues. Thank you very much for allowing me to participate in her care. If you have questions or concerns, please feel free to contact me at any time. Job ID: [id number] ELODIA
[2021-06-10] MEDS: LEVOTHYROXINE SODIUM 100 MCG TABLET PO SCH (05:40)
[2021-06-10 06:34] LABS: Hematocrit (blood only) 43.4 % (37-47); Hemoglobin 15.5 g/dL (12.0-16.0); Mean Corpuscular Hemoglobin 31.6 pg (25-34); Mean Corpuscular Hgb Conc 35.7 g/dL (32-36); Mean Corpuscular Volume 88.4 fL (80-100); Mean Platelet Volume 11.3 fL (7.4-10.4); Platelet Count 381 K/uL (130-400); RDW Coefficient of Variation 13.2 % (11.5-14.5); RDW Standard Deviation 42.7 fL (36.4-46.3); Red Blood Count 4.91 M/uL (4.2-5.4); White Blood Count 8.77 K/uL (4.8-10.8)
[2021-06-10 07:11] LABS: BUN Creatinine Ratio 15.2 (10-20); Calcium 8.5 mg/dl (8.5-10.1); Est GFR (African American) 45.5 ml/min; Est GFR (Non-African American) 39.3 ml/min; Potassium 4.3 mmol/L (3.5-5.1)
[2021-06-10] MEDS: FOLIC ACID 1 MG TAB PO SCH (09:51)
[2021-06-10] MEDS: CHOLECALCIFEROL 1,000 UNITS 25 MCG TAB PO SCH (09:52)
[2021-06-10] MEDS: DOCUSATE SODIUM 100 MG CAP PO SCH (09:52)
--- NOTE | 2021-06-10 10:44 | Discharge Summary ---
Date of Service June 10, 2021 Admission HPI Per Admitting Provider This is a 75yo F with a PMH of poorly controlled T1DM, CKD stage III, hypothyroidism, history of breast cancer status post mastectomy and radiation in 2013 who presents with worsening back pain over the past week. Endorses intermittent back pain over the past few months but was significantly worse over the past week with extension of pain to RUE. Was seen in the [facility] ED last week for RUE pain and had an upper extremity ultrasound performed that was negative for DVT. 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 Received Percocet at that time but it has made her feel nauseated and constipated so she stopped taking. Using ice and Advil for pain with minimal relief. Has had decreased oral intake over the past week. Has started to have normal bowel movements again. Also noting new redness and tenderness at right mastectomy site. Has history of breast cancer with [place] [address] Altman followed by complete mastectomy in 2013 due to recurrence in lymph nodes. Received XRT in both 2000 and 2013. Has undergone annual mammogram since then most recently in September 2020. Admission Exam Per Admitting Provider General Appearance: vitals as above, NAD, sitting up in bed, appears ill, conversing easily Head: normocephalic, atraumatic Eyes: normal inspection, PERRL, conjunctivae normal, anicteric sclerae ENT: external ear and nose normal, oropharynx normal Neck: normal visual inspection, trachea midline, no thyromegaly Respiratory: normal respiratory effort, decreased breath sounds R base, no wheeze, rales or rhonchi. No accessory muscle use Cardiovascular: regular rate, rhythm, no murmur, normal peripheral pulses, no BLE edema. Vessels: no JVD Chest: + R mastectomy site erythematous extending into axilla, non-tender nodules palpated on lateral R chest wall and in axilla Abdomen/GI: normal bowel sounds, soft, nontender, no hepatosplenomegaly Extremities/Musculoskeletal: no cyanosis or clubbing, extremities motor strength 5/5. + diffuse R sided back and RUE pain Neurologic: PERRL, EOMI, accommodation nl, no face palsy, no dysarthria, CN's II-XI intact bilaterally and moves all extremities Psychiatric: A+Ox3, euthymic affect Skin: no rashes, normal color, warm/dry Principal Diagnosis Metastatic carcinoma Intractable back pain due to osseous metastatic disease Right pleural effusion Discharge Exam Constitutional + well hydrated; no acute distress Eyes PERRL, conjunctivae normal, anicteric sclerae ENMT external ear and nose normal, oropharynx normal Respiratory normal respiratory effort; no respiratory distress Auscultation: + diminished lung sounds (Right lung base); no crackles and no wheezes Cardiovascular Rate/Rhythm: regular rate and regular rhythm S1 S2 Chest (Breasts) Additional Comments: Scar over right mastectomy site. Erythema indurated skin over right anterior chest. No open wounds/ulcers Gastrointestinal (Abdomen) normal bowel sounds, soft, nontender, no hepatosplenomegaly Musculoskeletal no cyanosis or clubbing, extremities motor strength 5/5 Right upper extremity lymphedema Neurologic PERRL, EOMI, accommodation nl, no face palsy, no dysarthria Psychiatric A+Ox3, euthymic affect Discharge Data Allergies Allergy/AdvReac Type Severity Reaction Status Date / Time Sulfa (Sulfonamide Allergy Verified 06/07/21 10:21 Antibiotics) Consultations 06/07/21 12:26 ED Decision to Admit Stat 06/07/21 14:21 Consult Oncology Routine 06/08/21 09:21 Consult Pulmonology Routine Ordered Studies 06/07/21 10:11 CT abd pelvis IV con only Stat Lung bases: The heart is normal in size and without pericardial effusion. There is a moderate right pleural effusion with associated bibasilar consolidation. Trace pleural effusion is seen on the left. Soft tissue thickening and enhancement of the right pleura is noted posteriorly on image #18. There is a small hiatal hernia. Liver: The contrast-enhanced liver is normal in size, contour, and attenuation. There is mild to moderate central intrahepatic biliary ductal dilatation. The hepatic veins and portal veins are patent. There is evidence of multifocal hepatic metastatic disease with greater than 10 lesions identified. The largest lesion is seen in the right lobe on image #82 and measures 3 cm. Several of these lesions demonstrate internal enhancement. Gallbladder: Surgically absent noting clips in the gallbladder fossa. Spleen: Normal in size and attenuation. There are calcified splenic granulomas. Pancreas: Unremarkable. Adrenal glands: Unremarkable. Kidneys: The contrast enhanced kidneys demonstrate mild cortical atrophy and are without hydronephrosis. The kidneys enhance symmetrically. Abdominal vasculature: The abdominal aorta is normal in course and caliber noting moderate to advanced atherosclerotic calcification. Bowel: Moderate fecal retention is seen throughout the colon. No bowel obstruction is identified. The appendix is well-visualized and normal. Peritoneum/retroperitoneum: There is no intraperitoneal free air or abdominal ascites. There is ill-defined soft tissue in the left retroperitoneal space on image #102. This is located below the left adrenal gland and may represent metastatic disease. Lymphadenopathy: None. Pelvic viscera: The bladder is decompressed and appears circumferentially thick walled. The uterus and adnexa are normal as visualized. Skeletal structures: The skeletal structures are heterogeneously osteopenic. There is evidence of multifocal osteoblastic metastatic disease a lesion in the left aspect of the sacrum image #239 measures 1.7 cm. Additional lesions are seen throughout the spine and within the bony pelvis. [employer] lesions are seen in the inferior aspect of the L4 and L5 vertebral bodies on axial images #196 and #234. There are healed right-sided rib fractures. Soft tissues: The right breast is surgically absent. Foci of dermal thickening and nodularity are seen within the right chest wall on images #12 and #22. Soft tissue edema within the right chest wall may be treatment related. IMPRESSION: 1. There is evidence of multifocal hepatic metastatic disease. Correlate with oncological history. 2. There is evidence of multifocal osteoblastic metastatic disease. 3. The right breast is surgically absent. There are foci of dermal thickening and nodularity within the right chest wall at the operative site. This also likely represents neoplasm. 4. There is ill-defined soft tissue in the upper retroperitoneal space below the level of the left adrenal gland. This also likely represents neoplasm. 5. Moderate constipation. 6. The bladder wall appears circumferentially thickened. Correlate with clinical findings and urinalysis. 7. Moderate right pleural effusion with associated right basilar consolidation. This may represent a metastatic effusion as there is pleural thickening and enhancement seen posteriorly. Consolidation likely represents atelectasis and clinical correlation will be required. 8. Trace left pleural effusion. 9. Additional findings as above. CYTOLOGY REPORT FINAL DIAGNOSIS Pleural fluid, side unspecified (cytologic analysis of pleural fluid): - Metastatic adenocarcinoma consistent with metastatic adenocarcinoma of mammary origin is seen. - Please see microscopic description. Screened by on at . at 1509. Clinical History Nausea, vomiting, hyperglycemia, and metastatic cancer Tissues A. Pleural Fluid Cyto.NG - NOS Gross Description 1000 CC CLEAR YELLOW FLUID 1 DQ, 1 TP , NO SEDIMENT FOR CB/ 8 CYTOSPINS PAP MADE / mb Microscopic Description This pleural fluid, side unspecified, is prepared as a Diff Quik stained direct smear and a Papanicolaou stain ThinPrep. After centrifugation, there is no sediment for a cell block. The Diff Quik stained direct smear reveals scattered single mesothelial cells and many epithelial cells arranged in three-dimensional aggregates, small clusters, and single cells. The majority of the epithelial cells reveal somewhat vacuolated cytoplasm, increased nuclear to cytoplasmic ratios, and the groups lack windows. The Papanicolaou stained ThinPrep contains these atypical epithelial cells and a few scattered mesothelial cells. Once again, atypical nuclear features and a lack of windows is seen. Review of the electronic medical record indicates this patient has a history of breast carcinoma dating back to 2013. As a cell block cannot be prepared from the submitted fluid, multiple cytospin slides were prepared and stained with immunohistochemical stains. External controls cells are appropriately positive and internal control cells are positive as well. The atypical cells are strongly positive for the estrogen receptor, GATA3, and MOC31. They're focally positive for claudin4. These same cells are negative for calretinin and the few scattered mesothelial cells serve as positive internal controls for the calretinin immunohistochemical stain. Thus, this patient has metastatic adenocarcinoma to a pleural cavity and this metastatic adenocarcinoma is consistent with a breast primary. Please note there is insufficient material to perform a progesterone immunocytochemical stain or a HER-2/juvenal immunohistochemical stain. Hospital Course (1) Back pain with radiation: (2) Metastatic cancer: (3) History of breast cancer: History of partial mastectomy with XRT in 2000 and complete mastectomy in 2013 with XRT, has undergone annual mastectomy since the Previously followed with Dr. Johnson. CT abd/pelvis showed evidence of multifocal hepatic metastatic disease. There is evidence of multifocal osteoblastic metastatic disease.There are foci of dermal thickening and nodularity within the right chest wall at the operative site. This also likely represents neoplasm.There is ill-defined soft tissue in the upper retroperitoneal space below the level of the left adrenal gland. Patient was seen by Oncologist Dr Odom He discussed findings with patient yesterday. He plans to follow up with patient outpatient with results of pleural fluid cytology and further evaluation/management. Dr Odom's office will call patient for appointment (4) Pleural effusion: Possible related to malignancy CT showed moderate right pleural effusion with associated right basilar consolidation. S/P thoracentesis where a total of 1400 mL's of serous fluid was removed. Cytology report as detailed above (5) DM type 1 (diabetes mellitus, type 1): Poorly controlled DM I, most recent a1c 12 in March 2021 on insulin pump Initial BSG 363 Provided basic DM education Continue insulin pump at home (6) CKD (chronic kidney disease), stage III: Cr 1.38 (baseline mid-1s) Creatinine 1.33 today (7) Hypothyroidism: Continue levothyroxine Total Time Total Time Spent Total Time Spent (In Minutes): 50 Total Time Includes: Examination of the Patient, Discharge Planning, Medication Reconciliation and Communication With Other Providers Discharge Plan Discharge Items Patient Disposition: Home - Home Health Services Reason For Visit: Worsening back pain Discharge Diagnosis: Metastatic carcinoma Intractable back pain due to osseous metastatic disease Right pleural effusion Activity: Resume your previous activity Non-emergency contact: Primary Care Provider and Oncologist Call non-emergency contact if: you have any medication questions and your symptoms worsen Follow-up/Referrals: Gianfranco Odom DO [Physician] - 06/25/21 9:50 am ( [facility] [address] [address] [address] Odom's office will call you with an appoinment.) Omar Virgen MD [Primary Care Provider] - (Date & Time 06/16/2021 11:00 AM Provider Dileep Gonzales MD Department [facility] ) Diet: Carb Count or DM1 and Heart Healthy Addtl Attending Provider Instructions: Mrs. Dwyer. You came to the hospital complaining of worsening back pain. You were evaluated with CAT scans which showed lesions in your liver and bones suggestive of metastatic disease. These are likely metastatic cancer. You also had right pleural effusion and had drainage of 1.4 L by the gas leak tester. You were evaluated by the oncologist. You have been discharged home to follow-up with the oncology in the office for further evaluation and management. Dr Odom's office will give you a call to schedule appointment. However, you can give them a call if you do not hear from them by next week. You are being discharged on tramadol to help with pain control. Stop taking ibuprofen. You can use tylenol as needed for mild pain and tramadol as needed for moderate and severe pain. Please continue to use your insulin to optimize glucose control as we discussed. Please ensure follow-up with your oncologist and your primary care doctor. It was a pleasure taking care of you. Pending Studies at Discharge: Yes Stand-Alone Forms: My [facility], Smoking Cessation Medications and DC Order Prescriptions: New acetaminophen 325 mg Tablet 650 mg PO Q4H PRN (Reason: mild pain (scale score 1-4)) Qty: 60 RF: 0 tramadol 50 mg Tablet 50 mg PO Q6H PRN (Reason: Moderate or severe pain) Qty: 60 RF: 0 Continued Humalog U-100 Insulin 100 unit/mL Cartridge 1 sliding scale dose continuous subcutaneous infusion UD Qty: 0 RF: 0 sennosides-docusate sodium 8.6-50 mg Tablet 1 tab PO QAM PRN (Reason: Constipation) Qty: 0 RF: 0 folic acid 1 mg Tablet 1 mg PO QAM Qty: 0 RF: 0 cholecalciferol (vitamin D3) 1,000 unit Capsule 1,000 unit PO QAM Qty: 0 RF: 0 levothyroxine 100 mcg tablet 100 mcg PO QAM 90 Days Qty: 90 RF: 3 biotin 1 mg tablet 1 mg PO QAM RF: 0 cyanocobalamin (vitamin B-12) [Vitamin B-12] 500 mcg Tablet 500 mcg PO DAILY RF: 0 polyethylene glycol 3350 [Miralax] 17 gram/dose Powder 17 g PO DAILY RF: 0 Discontinued ibuprofen 200 mg Tablet 200 mg PO Q6H PRN (Reason: Pain) RF: 0 Discharge Orders: Discharge Order (Routine); Ordered 06/10/21 Ordered By: Stephy Lemon Admission Data Admit Date/Time: 06/07/21 12:52 Attending Provider: Stephy Lemon I. Admit Provider: Fernando Lozoya Primary Care Provider: Omar Virgen Other Providers: Fernando Lozoya ; Nereyda Knowles ; Gianfranco Odom V. ; [facility] Other Interventions: Discharge Summary Assessment (RN) Last Done: 06/10/21 12:05
[2021-06-10] MEDS: CYANOCOBALAMIN 500 MCG TABLET (VITAMIN B-12) PO SCH (11:02)
[2021-06-10] MEDS: traMADol HCL 50 MG TABLET PO PRN (12:59)
[2021-06-11 10:47] LABS: CA 27.29 118 U/mL (<38); CA15-3 Breast Antigen 74 U/mL (<32)
== END 2021-06-10 13:41 | disposition home health service (06) | DRG 598 ==
LOC: ED 09:34 → SUATTDRO 12:52 → 2W 12:52
DX: I89.0 Lymphedema, not elsewhere classified; Z92.3 Personal history of irradiation; N18.30 Chronic kidney disease, stage 3 unspecified; C78.7 Secondary malignant neoplasm of liver and intrahepatic bile duct; Z83.3 Family history of diabetes mellitus; C50.919 Malignant neoplasm of unspecified site of unspecified female breast; C79.72 Secondary malignant neoplasm of left adrenal gland; Z90.11 Acquired absence of right breast and nipple; J91.0 Malignant pleural effusion; C79.51 Secondary malignant neoplasm of bone; Z88.2 Allergy status to sulfonamides; E10.22 Type 1 diabetes mellitus with diabetic chronic kidney disease; Z66 Do not resuscitate; M81.0 Age-related osteoporosis without current pathological fracture; M79.7 Fibromyalgia; E03.9 Hypothyroidism, unspecified

== ENCOUNTER 2021-06-12 14:55 | Inpatient (IN) ==
[2021-06-12] MEDS ORDERED: ONDANSETRON INJ 2 MG/ML 2 ML VIAL ONE (15:21)
[2021-06-12] MEDS ORDERED: ONDANSETRON INJ 2 MG/ML 2 ML VIAL IV STA (15:23)
[2021-06-12] MEDS ORDERED: SODIUM CHLORIDE 0.9% 500 ML IV SCH (15:30)
[2021-06-12 15:37] LABS: Basophils # (auto) 0.03 K/uL (0-0.2); Basophils % (auto) 0.2 %; Eosinophils # (auto) 0.07 K/uL (0-0.5); Eosinophils % (auto) 0.5 %; Hematocrit (blood only) 44.2 % (37-47); Hemoglobin 14.5 g/dL (12.0-16.0); Immature Granulocytes # (auto) 0.03 K/uL (0.00-0.02); Immature Granulocytes % (auto) 0.2 %; Lymphocytes % (auto) 8.4 %; Mean Corpuscular Hemoglobin 29.5 pg (25-34); Mean Corpuscular Hgb Conc 32.8 g/dL (32-36); Mean Platelet Volume 11.6 fL (7.4-10.4); Monocytes % (auto) 6.1 %; Neutrophils # (auto) 11.07 K/uL (1.4-6.5); Neutrophils % (auto) 84.6 %; Platelet Count 512 K/uL (130-400); RDW Standard Deviation 42.9 fL (36.4-46.3); Red Blood Count 4.91 M/uL (4.2-5.4)
--- NOTE | 2021-06-12 15:39 | Emergency Department Note ---
Impression & Plan Chest tightness, Vomiting, DKA (diabetic ketoacidosis), Acute hyponatremia ED Provider Note NAME: CANDICE SEN AGE: 75 SEX: F : 1945 ARRIVES VIA: Ambulance INFORMANT: [Patient] ED PROVIDER(S): [Quincy Washington MD] CHIEF COMPLAINT: Short of breath, vomiting HISTORY OF PRESENT ILLNESS: The patient is a 75-year-old female presents to the ER short of breath and vomiting. She was discharged from our hospital 2 days ago. She has cancer and she required a right thoracentesis for pleural fluid buildup. Patient was seen by the cancer specialist and there was talk of chemotherapy. The patient felt a bit tight across the chest yesterday, this morning, she felt moderate tightness on the right side of the chest. The same side that they did the procedure. She began to feel a little bit short of breath and then began vomiting. She has no abdominal pain. No diarrhea. The patient does not typically wear oxygen. No fever reported. No fall or trauma. No real cough. REVIEW OF SYSTEMS: See HPI for pertinent positives and negatives. A total of ten systems were reviewed and were otherwise negative. PMHx/PSHx: See Below SOCIAL HISTORY: See Below. PHYSICAL EXAM: GENERAL: Patient is in moderate distress, vomiting. HEENT: No acute trauma, normocephalic atraumatic, mucous membranes moist, no nasal congestion, no scleral icterus. NECK: No stridor, no adenopathy, no meningismus, trachea is midline. LUNGS: Clear to auscultation bilaterally when listening anterior, no wheeze, no rhonchi, breath sounds equal. HEART: Tachycardic, regular rhythm, no obvious murmur. ABDOMEN: Soft, nontender, bowel sounds positive, no hernias, no peritonitis. EXTREMITIES: No cyanosis or edema, full range of motion of all the joints without pain or difficulty, no signs for acute trauma. NEUROLOGIC: Oriented x 3, no acute motor or sensory deficits, no focal weakness. SKIN: No rash, no jaundice, no diaphoresis. DIFFERENTIAL DIAGNOSIS: Bowel obstruction, viral illness, foodborne illness, medication reaction, pleural effusion, pneumothorax, pneumonia, [place], dysrhythmia, electrolyte imbalance, anemia, among others. EMERGENCY DEPARTMENT COURSE/PROCEDURES: ECG: Indication was shortness of breath. The ECG shows what appears to be a sinus tachycardia with a rate of about 110. There is no ST elevation. There is some nonspecific ST change. No PVCs. The QTc is 349. Continuous Cardiac Monitoring: An order was placed for continuous cardiac monitoring. The monitor shows a rate of 116 with sinus tachycardia. Critical Care Note: I have personally spent 55 minutes of critical care time in the direct management of this patient. This includes bedside care, interpretation of diagnostic studies, and testing, discussion with consultants, patient, and family members, and other required patient management activities. This 55 minutes is in excess of all separately billable procedures. MEDICAL DECISION MAKING: There is a mild leukocytosis, this could be consistent with infection or possibly just her vomiting. There was a normal hemoglobin. Platelet count somewhat elevated. Renal panel testing showed an acidosis with an anion gap as well as a low sodium. Creatinine was somewhat elevated but this appears baseline looking back at previous testing. Glucose was quite high in the 400s. Lactic acid level was elevated consistent with her acidosis, possibly consistent with infection. No concerning liver enzyme elevation. The patient appeared to be in a euthyroid state. ECG shows what appears to be a sinus tachycardia, no acute ischemic change. Cardiac enzyme testing x1 is not consistent with acute cardiac injury. Covid testing returned negative. Abdominal and pelvis CT showed some findings that had been noted before consistent with her cancer, there was no true bowel obstruction. Constipation was seen. Chest film showed some increased fluid to the right pleural space and some presumed atelectasis. There was no pneumothorax. The patient was vomiting. She appeared uncomfortable. She was tachycardic. The patient was aggressively managed. She was given IV saline, 1.5 L in total. She received IV Zofran, she was given IV Phenergan. She received a bolus of IV insulin. She was placed on an insulin drip. The patient's vomiting is now controlled. She seems more comfortable. She appears to be in DKA, she appears dehydrated. A hospital stay is warranted. Further care and symptom control is required. I spoke to the patient, I talked with the case fitter. The on-call hospitalist has been consulted. Past Med/Surg History Medical History Breast cancer (07/30/14) "s/p mastectomy of right breast and radiation in 2013" CKD (chronic kidney disease), stage III DM type 1 (diabetes mellitus, type 1) Fibromyalgia Hypothyroidism Osteoporosis Vitamin D deficiency Surgical History H/O section (01/04/13) H/O umbilical hernia repair S/P cataract surgery S/P laparoscopic cholecystectomy S/P mastectomy "right breast" Family History Father COPD (chronic obstructive pulmonary disease) CHF (congestive heart failure) Mother Rheumatoid arthritis Son Type 1 diabetes mellitus Social History Smoking Status: Never smoker Second Hand Exposure: Yes (dad many tears ago.); Hx Alcohol Use: No Hx Substance Use: No Preferred Language: Kinyarwanda Communication Ability: Effective Chimney [employer] Brick Required: No Beliefs That Will Affect Care: Advent Advent Beliefs: Nondenominational marital status: Current Living Situation: Spouse Other Information That Helps Us Care for You: No Feels Safe at Home: Yes Safety Concerns: Feels Safe At This Time Assistive Devices: Glasses and Walker Allergies Allergies Allergy/AdvReac Type Severity Reaction Status Date / Time Sulfa (Sulfonamide Allergy Verified 06/07/21 10:21 Antibiotics) Home Meds Home Medications Medication Instructions Recorded Confirmed insulin lispro 100 unit/mL 1 sliding scale dose CONTINUOUS 09/15/15 06/12/21 subcutaneous cartridge (Humalog SUBCUTANEOUS INFUSION UD #0 dose U-100 Insulin) cholecalciferol (vitamin D3) 25 1,000 unit PO QAM #0 08/04/16 06/12/21 mcg (1,000 unit) capsule folic acid 1 mg tablet 1 mg PO QAM #0 tab 08/04/16 06/12/21 sennosides 8.6 mg-docusate sodium 1 tab PO QAM PRN #0 08/04/16 06/12/21 50 mg tablet biotin 1 mg tablet 1 mg PO QAM tab 08/01/19 06/12/21 levothyroxine 100 mcg tablet 100 mcg PO QAM 90 Days #90 tab 11/04/19 06/12/21 cyanocobalamin (vitamin B-12) 500 500 mcg PO DAILY 06/07/21 06/12/21 mcg tablet (Vitamin B-12) polyethylene glycol 3350 17 17 g PO DAILY 06/07/21 06/12/21 gram/dose oral powder (Miralax) ondansetron HCl 8 mg tablet 8 mg PO DAILY PRN 06/12/21 06/12/21 Previous Rx's Medication Instructions Recorded acetaminophen 325 mg tablet 650 mg PO Q4H PRN #60 tab 06/10/21 tramadol 50 mg tablet 50 mg PO Q6H PRN #60 tab 06/10/21 Results & Data (ED) Vital Signs Vital Signs - 24 hr 06/12/21 15:08 06/12/21 15:30 06/12/21 15:45 Temperature 36.8 C Temperature Source Oral Pulse Rate 121 H 113 H 109 H Pulse Rate [Finger] 109 H Pulse Rate from SpO2 Sensor 114 H Pulse Rhythm Regular Regular Pulse Rhythm [Finger] Regular Pulse Strength Normal Pulse Strength [Finger] Normal Respiratory Rate 17 19 17 Respiratory Effort / Characteristics Non-Labored Spontaneous Non-Labored Spontaneous Non-Labored Respiratory Depth Normal Normal Normal Respiratory Pattern Regular Regular Blood Pressure 124/63 115/59 L Blood Pressure [Left Arm] 115/59 L Blood Pressure Mean 83 77 Blood Pressure Mean [Left Arm] 77 Blood Pressure Position Lying Pulse Oximetry 94 90 98 Oxygen Delivery Method Room Air Room Air Sepsis Recent Fever Within 48 Hours No Sepsis New/Unexplained Change in Mental Status N/A Sepsis Action Taken by Nursing No Action Required 06/12/21 16:00 Temperature Temperature Source Pulse Rate 112 H Pulse Rate [Finger] Pulse Rate from SpO2 Sensor 113 H Pulse Rhythm Pulse Rhythm [Finger] Pulse Strength Pulse Strength [Finger] Respiratory Rate 19 Respiratory Effort / Characteristics Respiratory Depth Respiratory Pattern Blood Pressure 109/55 L Blood Pressure [Left Arm] Blood Pressure Mean 73 Blood Pressure Mean [Left Arm] Blood Pressure Position Pulse Oximetry 94 Oxygen Delivery Method Sepsis Recent Fever Within 48 Hours Sepsis New/Unexplained Change in Mental Status Sepsis Action Taken by Skilled Nursing Medications Current Medication List: was personally reviewed by me Laboratory Data Attestation: I reviewed the patient's lab results. Result diagrams: 06/12/21 15:00 06/12/21 20:08 Lab Results 06/12/21 06/12/21 06/12/21 Range/Units 15:00 15:00 15:00 WBC 13.10 H (4.8-10.8) K/uL RBC 4.91 (4.2-5.4) M/uL Hgb 14.5 (12.0-16.0) g/dL Hct 44.2 (37-47) % MCV 90.0 (80-100) fL MCH 29.5 (25-34) pg MCHC 32.8 (32-36) g/dL RDW Std Deviation 42.9 (36.4-46.3) fL RDW Coeff of Maycol 13.0 (11.5-14.5) % Plt Count 512 H (130-400) K/uL MPV 11.6 H (7.4-10.4) fL Immature Gran % (Auto) 0.2 % Neut % (Auto) 84.6 % Lymph % (Auto) 8.4 % Barbour % (Auto) 6.1 % Eos % (Auto) 0.5 % Baso % (Auto) 0.2 % Neut # (Auto) 11.07 H (1.4-6.5) K/uL Lymph # (Auto) 1.10 L (1.2-3.4) K/uL Barbour # (Auto) 0.80 H (0.11-0.59) K/uL Eos # (Auto) 0.07 (0-0.5) K/uL Baso # (Auto) 0.03 (0-0.2) K/uL Immature Gran # (Auto) 0.03 H (0.00-0.02) K/uL Sodium 126 L (136-145) mmol/L Potassium 5.5 H (3.5-5.1) mmol/L Chloride 92 L (98-107) mmol/L Carbon Dioxide 18 L (21-32) mmol/L Anion Gap 16.0 H (3-11) BUN 26 H (7-18) mg/dl Creatinine 1.57 H (0.6-1.2) mg/dl Est Cr Clr Drug Dosing 28.3 ml/min Est GFR ( Amer) 37.3 ml/min Est GFR (Non-Af Amer) 32.1 ml/min BUN/Creatinine Ratio 16.6 (10-20) Glucose 428 H* (70-99) mg/dl POC Glucose (70-99) mg/dl Lactate (0.4-2.0) mmol/L Calcium 8.0 L (8.5-10.1) mg/dl Magnesium 1.8 (1.8-2.4) mg/dl Total Bilirubin 0.7 (0.2-1) mg/dl AST 36 (15-37) U/L ALT 29 (12-78) U/L Alkaline Phosphatase 155 H (45-117) U/L Troponin I < 0.015 (0-0.045) ng/ml Total Protein 6.5 (6.4-8.2) gm/dl Albumin 2.6 L (3.4-5.0) gm/dl Globulin 3.9 (2.5-4.0) gm/dl Albumin/Globulin Ratio 0.7 L (0.9-2) Beta-Hydroxybutyric Acd 42.31 H (0.2-2.81) mg/dl Procalcitonin 0.16 (0-0.5) ng/ml TSH 2.990 (0.300-4.500) uIu/ml COVID-19 Eval Order SARS-CoV-2 (PCR) (Negative) 06/12/21 06/12/21 06/12/21 Range/Units 15:45 16:31 16:31 WBC (4.8-10.8) K/uL RBC (4.2-5.4) M/uL Hgb (12.0-16.0) g/dL Hct (37-47) % MCV (80-100) fL MCH (25-34) pg MCHC (32-36) g/dL RDW Std Deviation (36.4-46.3) fL RDW Coeff of Macyol (11.5-14.5) % Plt Count (130-400) K/uL MPV (7.4-10.4) fL Immature Gran % (Auto) % Neut % (Auto) % Lymph % (Auto) % Barbour % (Auto) % Eos % (Auto) % Baso % (Auto) % Neut # (Auto) (1.4-6.5) K/uL Lymph # (Auto) (1.2-3.4) K/uL Barbour # (Auto) (0.11-0.59) K/uL Eos # (Auto) (0-0.5) K/uL Baso # (Auto) (0-0.2) K/uL Immature Gran # (Auto) (0.00-0.02) K/uL Sodium (136-145) mmol/L Potassium (3.5-5.1) mmol/L Chloride (98-107) mmol/L Carbon Dioxide (21-32) mmol/L Anion Gap (3-11) BUN (7-18) mg/dl Creatinine (0.6-1.2) mg/dl Est Cr Clr Drug Dosing ml/min Est GFR ( Amer) ml/min Est GFR (Non-Af Amer) ml/min BUN/Creatinine Ratio (10-20) Glucose (70-99) mg/dl POC Glucose (70-99) mg/dl Lactate 3.3 H* (0.4-2.0) mmol/L Calcium (8.5-10.1) mg/dl Magnesium (1.8-2.4) mg/dl Total Bilirubin (0.2-1) mg/dl AST (15-37) U/L ALT (12-78) U/L Alkaline Phosphatase (45-117) U/L Troponin I (0-0.045) ng/ml Total Protein (6.4-8.2) gm/dl Albumin (3.4-5.0) gm/dl Globulin (2.5-4.0) gm/dl Albumin/Globulin Ratio (0.9-2) Beta-Hydroxybutyric Acd (0.2-2.81) mg/dl Procalcitonin (0-0.5) ng/ml TSH (0.300-4.500) uIu/ml COVID-19 Eval Order Covid19 at [facility] SARS-CoV-2 (PCR) NEGATIVE (Negative) 06/12/21 Range/Units 16:51 WBC (4.8-10.8) K/uL RBC (4.2-5.4) M/uL Hgb (12.0-16.0) g/dL Hct (37-47) % MCV (80-100) fL MCH (25-34) pg MCHC (32-36) g/dL RDW Std Deviation (36.4-46.3) fL RDW Coeff of Maycol (11.5-14.5) % Plt Count (130-400) K/uL MPV (7.4-10.4) fL Immature Gran % (Auto) % Neut % (Auto) % Lymph % (Auto) % Barbour % (Auto) % Eos % (Auto) % Baso % (Auto) % Neut # (Auto) (1.4-6.5) K/uL Lymph # (Auto) (1.2-3.4) K/uL Barbour # (Auto) (0.11-0.59) K/uL Eos # (Auto) (0-0.5) K/uL Baso # (Auto) (0-0.2) K/uL Immature Gran # (Auto) (0.00-0.02) K/uL Sodium (136-145) mmol/L Potassium (3.5-5.1) mmol/L Chloride (98-107) mmol/L Carbon Dioxide (21-32) mmol/L Anion Gap (3-11) BUN (7-18) mg/dl Creatinine (0.6-1.2) mg/dl Est Cr Clr Drug Dosing ml/min Est GFR ( Amer) ml/min Est GFR (Non-Af Amer) ml/min BUN/Creatinine Ratio (10-20) Glucose (70-99) mg/dl POC Glucose 410 H* (70-99) mg/dl Lactate (0.4-2.0) mmol/L Calcium (8.5-10.1) mg/dl Magnesium (1.8-2.4) mg/dl Total Bilirubin (0.2-1) mg/dl AST (15-37) U/L ALT (12-78) U/L Alkaline Phosphatase (45-117) U/L Troponin I (0-0.045) ng/ml Total Protein (6.4-8.2) gm/dl Albumin (3.4-5.0) gm/dl Globulin (2.5-4.0) gm/dl Albumin/Globulin Ratio (0.9-2) Beta-Hydroxybutyric Acd (0.2-2.81) mg/dl Procalcitonin (0-0.5) ng/ml TSH (0.300-4.500) uIu/ml COVID-19 Eval Order SARS-CoV-2 (PCR) (Negative) Administered Medications Doxycycline Hyclate (Doxycycline Hyclate 100 Mg Cap) 100 mg PO BID NIKHIL Stop: 06/19/21 20:59 Last Admin: 06/12/21 20:12 Dose: 100 mg Documented by: [id number] Heparin Sodium (Porcine) (Heparin Sod 5,000 Unit/0.5 Ml Vial) 5,000 units SQ Q8 NIKHIL Stop: 07/12/21 21:59 Last Admin: 06/12/21 20:15 Dose: Not Given Documented by: [id number] Insulin Human Regular 250 (units/ Sodium Chloride) 250 mls @ 1.3 mls/hr IV .Q24H NIKHIL; Protocol Stop: 07/12/21 16:44 Last Titration: 06/12/21 21:58 Dose: 1.3 units/hr, 1.3 mls/hr Documented by: [id number] Cosigned by: [id number] Titration: 06/12/21 20:45 Dose: 1.3 units/hr, 1.3 mls/hr Documented by: [id number] Cosigned by: [id number] Titration: 06/12/21 19:48 Dose: 1.3 units/hr, 1.3 mls/hr Documented by: [id number] Cosigned by: [id number] Titration: 06/12/21 19:15 Dose: 1.6 units/hr, 1.6 mls/hr Documented by: [id number] Cosigned by: [id number] Titration: 06/12/21 18:47 Dose: 1.6 units/hr, 1.6 mls/hr Documented by: [id number] Cosigned by: [id number] Admin: 06/12/21 17:40 Dose: 2 units/hr, 2 mls/hr Documented by: [id number] Cosigned by: [id number] Ceftriaxone Sodium 1,000 mg/ (Dextrose) 50 mls @ 100 mls/hr IV Q24H NIKHIL; Protocol Stop: 06/19/21 17:14 Last Infusion: 06/12/21 21:00 Dose: 0 mls/hr Documented by: [id number] Admin: 06/12/21 20:30 Dose: 100 mls/hr Documented by: [id number] Potassium Chloride/Sodium Chloride (1/2 Nss + 20meq Kcl 1000ml) 20 meq in 1,000 mls @ 250 mls/hr IV .Q4H [facility] Stop: 07/12/21 21:44 Last Admin: 06/12/21 21:48 Dose: 250 mls/hr Documented by: [id number] Insulin Aspart (Insulin Aspart 100 Units/Ml 3 Ml Pen) 0 units SC ACHS NIKHIL Stop: 07/12/21 20:59 Last Admin: 06/12/21 20:13 Dose: Not Given Documented by: [id number] Ondansetron HCl (Ondansetron Inj 2 Mg/Ml 2 Ml Vial) 4 mg IV Q8H PRN PRN Reason: Nausea And Vomiting Stop: 07/12/21 18:03 Last Admin: 06/12/21 21:55 Dose: 4 mg Documented by: [id number] Tramadol HCl (Tramadol Hcl 50 Mg Tablet) 50 mg PO Q4H PRN PRN Reason: Moderate or severe pain Stop: 07/12/21 18:45 Last Admin: 06/12/21 20:13 Dose: 50 mg Documented by: [id number] Discontinued Medications Sodium Chloride (Nss) 500 mls @ 999 mls/hr IV .Q31M NIKHIL Stop: 06/12/21 16:00 Last Infusion: 06/12/21 17:14 Dose: 0 mls/hr Documented by: [id number] Admin: 06/12/21 15:28 Dose: 999 mls/hr Documented by: [id number] Promethazine HCl (Phenergan) 6.25 mg in 50.25 mls @ 201 mls/hr IV NOW STA Stop: 06/12/21 16:04 Last Infusion: 06/12/21 16:21 Dose: 0 mls/hr Documented by: [id number] Admin: 06/12/21 15:58 Dose: 201 mls/hr Documented by: [id number] Sodium Chloride (Nss 1000ml) 500 mls @ 999 mls/hr IV .Q31M ONE Stop: 06/12/21 16:47 Last Infusion: 06/12/21 18:47 Dose: 0 mls/hr Documented by: [id number] Admin: 06/12/21 17:42 Dose: 999 mls/hr Documented by: [id number] Sodium Chloride (Nss 1000ml) 500 mls @ 999 mls/hr IV .Q31M NIKHIL Stop: 06/12/21 18:15 Last Admin: 06/12/21 18:51 Dose: Not Given Documented by: [id number] Admin: 06/12/21 18:50 Dose: Not Given Documented by: [id number] Sodium Chloride (Nss 1000ml) 1,000 mls @ 250 mls/hr IV .Q4H NIKHIL Stop: 07/12/21 17:14 Last Admin: 06/12/21 18:52 Dose: 250 mls/hr Documented by: [id number] Sodium Chloride (Nss 1000ml) 500 mls @ 999 mls/hr IV .Q31M ONE Stop: 06/12/21 18:04 Last Admin: 06/12/21 18:51 Dose: Not Given Documented by: [id number] Insulin Human Regular (Novolin-R Insulin Per Unit Charge) 10 units IV NOW STA Stop: 06/12/21 16:26 Last Admin: 06/12/21 16:56 Dose: 10 units Documented by: [id number] Cosigned by: [id number] Miscellaneous (Stat Iv Infusion Titration Per Protocol) 1 ea N/A NOW STA Stop: 06/12/21 17:09 Last Admin: 06/12/21 18:49 Dose: 1 ea Documented by: [id number] Miscellaneous (Stat Iv Infusion Titration Per Protocol) 1 ea N/A NOW STA Stop: 06/12/21 17:09 Last Admin: 06/12/21 18:49 Dose: 1 ea Documented by: [id number] Ondansetron HCl (Ondansetron Inj 2 Mg/Ml 2 Ml Vial) Confirm Administered Dose 4 mg .ROUTE .STK-MED ONE Stop: 06/12/21 15:22 Last Admin: 06/12/21 16:23 Dose: Not Given Documented by: [id number] Ondansetron HCl (Ondansetron Inj 2 Mg/Ml 2 Ml Vial) 4 mg IV NOW STA Stop: 06/12/21 15:24 Last Admin: 06/12/21 15:28 Dose: 4 mg Documented by: [id number] Imaging Data Radiologist's Impression: Abdomen/Pelvis CT 06/12/21 15:23 CT SCAN OF THE ABDOMEN AND PELVIS WITHOUT CONTRAST CLINICAL HISTORY: vomiting, poss obstruction COMPARISON STUDY: May 28, 2021 TECHNIQUE: CT scan of the abdomen and pelvis was performed from the lung bases to the proximal femurs. Images are reviewed in the axial, sagittal, and coronal planes. IV contrast was not administered for this examination. A dose lowering technique was utilized adhering to the principles of ALARA. CT DOSE: 384.09 mGy.cm FINDINGS: Lower chest: Redemonstration of the moderate to large right pleural effusion associated with compressive atelectasis within right lower lobe. Liver: The unenhanced liver is normal in size, contour, and attenuation. There is no intrahepatic biliary ductal dilatation. Multiple hypoattenuating lesion within right and left lobe of the liver are again seen likely representing metastatic disease, was better evaluated on recent CT of the abdomen and pelvis due to intravenous contrast administration. Gallbladder: Is surgically absent. Spleen: Normal in size with multiple parenchymal calcifications. Pancreas: Is slightly atrophic. Adrenal glands: Unremarkable. Redemonstration of ill-defined soft tissue tissue attenuation inferiorly to the right adrenal gland which might represent neoplastic lesion. Kidneys: The unenhanced kidneys are normal in size without hydronephrosis. There is no contour deforming renal mass lesion. No renal calculi are identified. Previously seen renal cysts appear slightly less conspicuous due to lack of IV contrast. Bowel: Bowel loops are nondilated. Appendix is not well seen. Evaluation of the bowel is suboptimal due to lack of contrast. Loops of distal large bowel and rectum are distended with large amount of stool. Peritoneum: There is no intraperitoneal free air or abdominal ascites. Vasculature: Abdominal aorta is normal in caliber with scattered calcifications of its wall. Adenopathy: None. Pelvic viscera: Urinary bladder is adequately filled with urine. Uterus is atrophic. Skeletal structures: Severe diffuse osteopenia. Mild degenerative changes of the spine. Focal sclerotic lesion is seen within sacrum and unchanged since prior, might represent metastasis. Also multiple osseous metastases are seen within pel aletha bones, stable since prior. IMPRESSION: 1. Nondilated loops of bowel. No evidence of bowel obstruction. Large amount of stool is seen within distal large bowel and rectum. Constipation pattern. 2. Redemonstration of the liver and osseous metastatic disease. Redemonstration of the right pleural effusion, unchanged since prior. 3. The rest of findings as above. ACT 112: Negative or not required by law. The above report was generated using voice recognition software. It may contain grammatical, syntax or spelling errors. Electronically signed by: Neha Cagle DO 06/12/2021 5:26 PM Chest X-Ray 06/12/21 15:23 XR chest 1V portable CLINICAL HISTORY: weakness COMPARISON STUDY: June 08, 2021 FINDINGS: No pneumothorax. Interval development of small right pleural effusion and elevated right hemidiaphragm which could be due to atelectasis. There is new hazy opacity wi thin the right lower lung which could represent atelectasis or infiltrate. Left lung is clear. Cardiomediastinal silhouette is within normal limits in size. No significant pulmonary vascular congestion.. Aorta is calcified Osseous structures: Degenerative changes of the spine. Redemonstration of orthopedic hardware within right humerus. IMPRESSION: 1. Interval development of atelectasis/infiltrate at the right lower lung as well as small right pleural effusion. ACT 112: Negative or not required by law. The above report was generated using voice recognition software. It may contain grammatical, syntax or spelling errors. Electronically signed by: Neha Cagle DO 06/12/2021 4:09 PM Discharge Plan Visit Data Chief Complaint: Shortness of Breath/Dyspnea Stated Complaint: SOB, PAIN R SIDE ED Provider: Quincy Washington Discharge Problem: Chest tightness, Vomiting, DKA (diabetic ketoacidosis), Acute hyponatremia Patient Disposition: Admitted As Inpatient Condition: Fair Discharge Instructions Interventions: ED Discharge Assessment Last Done: 06/12/21 18:30
[2021-06-12] MEDS ORDERED: PROMETHAZINE 6.25 MG/50.25 ML BAG IV STA (15:50)
--- NOTE | 2021-06-12 16:11 | XRay Report ---
XR chest 1V portable CLINICAL HISTORY: weakness COMPARISON STUDY: June 08, 2021 FINDINGS: No pneumothorax. Interval development of small right pleural effusion and elevated right hemidiaphragm which could be due to atelectasis. There is new hazy opacity within the right lower lung which could represent atele ctasis or infiltrate. Left lung is clear. Cardiomediastinal silhouette is within normal limits in size. No significant pulmonary vascular congestion.. Aorta is calcified Osseous structures: Degenerative changes of the spine. Redemonstration of orthopedic hardware within right humerus. IMPRESSION: 1. Interval development of atelectasis/infiltrate at the right lower lung as well as small right ple ural effusion. ACT 112: Negative or not required by law. The above report was generated using voice recognition software. It may contain grammatical, syntax o r spelling errors. Electronically signed by: Neha Cagle DO 06/12/2021 4:09 PM
[2021-06-12 16:15] LABS: Alanine Aminotransferase 29 U/L (12-78); Albumin Globulin Ratio 0.7 (0.9-2); Albumin Level 2.6 gm/dl (3.4-5.0); Alkaline Phosphatase 155 U/L (45-117); Aspartate Aminotransferase 36 U/L (15-37); BUN Creatinine Ratio 16.6 (10-20); Blood Urea Nitrogen 26 mg/dl (7-18); Chloride 92 mmol/L (98-107); Creatinine Clr Calc Pharmacy 28.3 ml/min; Est GFR (African American) 37.3 ml/min; Est GFR (Non-African American) 32.1 ml/min; Globulin 3.9 gm/dl (2.5-4.0); Magnesium 1.8 mg/dl (1.8-2.4); Potassium 5.5 mmol/L (3.5-5.1); Sodium 126 mmol/L (136-145); Troponin I < 0.015 ng/ml (0-0.045)
[2021-06-12] MEDS ORDERED: SODIUM CHLORIDE 0.9% 1000ML 500 ML IV ONE ×2 (16:17→17:34)
[2021-06-12 16:23] LABS: Beta-Hydroxybutyrate 42.31 mg/dl (0.2-2.81); Bilirubin,Total 0.7 mg/dl (0.2-1); Carbon Dioxide 18 mmol/L (21-32); Total Protein 6.5 gm/dl (6.4-8.2)
[2021-06-12 16:25] LABS: Glucose 428 mg/dl (70-99)
[2021-06-12] MEDS ORDERED: NovoLIN-R INSULIN PER UNIT CHARGE IV STA (16:25)
[2021-06-12] MEDS ORDERED: STAT IV Infusion **Titration per Protocol STA ×3 (16:35→17:08)
[2021-06-12] MEDS ORDERED: INSULIN REGULAR 250 UNITS in SODIUM CHLORIDE 0.9% 247.5 ML IV SCH ×2 (16:45→17:15)
[2021-06-12] MEDS ORDERED: PHARMACY GLYCEMIC MGMT CONSULT PRN (17:08)
--- NOTE | 2021-06-12 17:12 | History & Physical Report ---
Date of Service June 12, 2021 Assessment & Plan (1) DKA, type 1: Plan: Nausea, vomiting, malaise Patient is currently in DKA with anion gap of 16, bicarb of 18, blood glucose of 428, lactate of 3.3, beta hydroxybutyrate of 42.3. Give IV fluids NSS 1 L bolus Start normal saline at 250/h. Potassium is currently 5.5 and sodium corrected for hyperglycemia of 131 We will change to saline with potassium chloride once potassium gets below 5.3. Monitor BMP every 4 hours Accu-Cheks every hour for now. Once blood glucose gets to 200 will change to dextrose containing fluid with potassium supplement. Got Insulin 10 units IV in ER. Start insulin drip N.p.o. for now Antiemetics IV (2) Back pain: (3) History of breast cancer: (4) Shortness of breath: (5) Pleural effusion: Plan: History of breast cancer. Recent malignant effusion based on cytology. Chest XR reports interval atelectasis/infiltrate of the right lower lung bases with a small right pleural effusion. Though m suspicion for pneumonia is low at this time. However, patient meets SIRS criteria with leukocytosis of 13,000, tachycardia. This could also be related to DKA. We will check procalcitonin. In the meantime we will start empirical ceftriaxone and doxycycline and monitor for signs of infection. (6) Nausea and vomiting: Plan: Due to DKA Antiemetics Manage DKA as above (7) CKD (chronic kidney disease), stage III: Plan: Cr is 1.57 Monitor renal function (8) Hypothyroidism: Plan: Continue home levothyroxine (9) DVT prophylaxis: Plan: Hep sq Code status: DNR Dispo: PCU History of Present Illness Chief Complaint: Nausea, shortness of breath Primary Care Provider: Omar Virgen MD 75-year-old woman with history of DM type I poorly controlled on insulin pump, CKD 3, hypothyroidism, breast cancer status post mastectomy and radiation in 2013 who was recently hospitalized for worsening back pain and discharged 2 days ago for during which she was found to have metastatic lesion to bones and liver as well as right pleural effusion which was malignant on cytology, presents today with nausea and chest tightness. Patient reported that she had been having intermittent nausea since recent hospitalization. However, this morning she started having some chest tightness associated with malaise, nausea and vomiting with mild shortness of breath. Has been having intermittent cough since last hospitalization. Denies any fevers, chills. Denied any abdominal pain, diarrhea. Denied dysuria, frequency or urgency. Reports that her blood glucose at home has been running between 150s to 200s using her insulin pump. Allergies Allergy/AdvReac Type Severity Reaction Status Date / Time Sulfa (Sulfonamide Allergy Verified 06/07/21 10:21 Antibiotics) Home Medications Medication Instructions Recorded Confirmed Type insulin lispro 100 unit/mL 1 sliding scale dose CONTINUOUS 09/15/15 06/12/21 History subcutaneous cartridge (Humalog SUBCUTANEOUS INFUSION UD #0 dose U-100 Insulin) cholecalciferol (vitamin D3) 25 1,000 unit PO QAM #0 08/04/16 06/12/21 History mcg (1,000 unit) capsule folic acid 1 mg tablet 1 mg PO QAM #0 tab 08/04/16 06/12/21 History sennosides 8.6 mg-docusate sodium 1 tab PO QAM PRN #0 08/04/16 06/12/21 History 50 mg tablet biotin 1 mg tablet 1 mg PO QAM tab 08/01/19 06/12/21 History levothyroxine 100 mcg tablet 100 mcg PO QAM 90 Days #90 tab 11/04/19 06/12/21 History cyanocobalamin (vitamin B-12) 500 500 mcg PO DAILY 06/07/21 06/12/21 History mcg tablet (Vitamin B-12) polyethylene glycol 3350 17 17 g PO DAILY 06/07/21 06/12/21 History gram/dose oral powder (Miralax) acetaminophen 325 mg tablet 650 mg PO Q4H PRN #60 tab 06/10/21 06/12/21 Rx tramadol 50 mg tablet 50 mg PO Q6H PRN #60 tab 06/10/21 06/12/21 Rx ondansetron HCl 8 mg tablet 8 mg PO DAILY PRN 06/12/21 06/12/21 History Past Med/Surg History Medical History Breast cancer (07/30/14) "s/p mastectomy of right breast and radiation in 2013" CKD (chronic kidney disease), stage III DM type 1 (diabetes mellitus, type 1) Fibromyalgia Hypothyroidism Osteoporosis Vitamin D deficiency Surgical History H/O section (01/04/13) H/O umbilical hernia repair S/P cataract surgery S/P laparoscopic cholecystectomy S/P mastectomy "right breast" Family History Father COPD (chronic obstructive pulmonary disease) CHF (congestive heart failure) Mother Rheumatoid arthritis Son Type 1 diabetes mellitus Social History Smoking Status: Never smoker Second Hand Exposure: Yes (dad many tears ago.); Hx Alcohol Use: No Hx Substance Use: No Preferred Language: [place] Communication Ability: Effective Tube Operator Required: No Beliefs That Will Affect Care: Presybeterian Presybeterian Beliefs: Roman Catholic marital status: Current Living Situation: Spouse Feels Safe at Home: Yes Assistive Devices: Walker Review of Systems Constitutional: + fatigue, + malaise and + anorexia; no fever and no chills Eyes: no problem reported Ear, Nose, Mouth, Throat: no problem reported Respiratory: + cough and + dyspnea Cardiovascular: Additional Comments: Chest tightness Gastrointestinal: + nausea and + vomiting; no abdominal pain and no diarrhea/loose stools Genitourinary: no dysuria, no difficulty urinating and no urinary frequency Musculoskeletal: + back pain Neurologic: no headache(s) and no confusion Psychiatric: no depression and no anxiety Physical Exam Constitutional: + ill appearing; no acute distress Eyes: PERRL, conjunctivae normal, anicteric sclerae ENMT: external ear and nose normal, oropharynx normal Respiratory: normal respiratory effort; no respiratory distress Diminished breath sounds right lung base posteriorly. No crackles Cardiovascular: Rate/Rhythm: regular rhythm and + tachycardic S1-S2 Gastrointestinal (Abdomen): normal bowel sounds, soft, nontender, no hepatosplenomegaly Musculoskeletal: no cyanosis or clubbing, extremities motor strength 5/5 Neurologic: PERRL, EOMI, accommodation nl, no face palsy, no dysarthria Psychiatric: A+Ox3, euthymic affect Results & Data Results & Data ([facility]) Vital Signs (Past 12 Hours) Vital Signs Temp Pulse Pulse Resp BP BP Pulse Ox 06/12/21 17:09 123 H 17 95/46 L 95 06/12/21 15:45 109 H 109 H 17 115/59 L 98 06/12/21 15:08 36.8 C 121 H 17 124/63 94 Laboratory Results Abnormal lab results 06/12/21 06/12/21 06/12/21 Range/Units 15:00 15:00 15:45 WBC 13.10 H (4.8-10.8) K/uL Plt Count 512 H (130-400) K/uL MPV 11.6 H (7.4-10.4) fL Neut # (Auto) 11.07 H (1.4-6.5) K/uL Lymph # (Auto) 1.10 L (1.2-3.4) K/uL Ida # (Auto) 0.80 H (0.11-0.59) K/uL Immature Gran # (Auto) 0.03 H (0.00-0.02) K/uL Sodium 126 L (136-145) mmol/L Potassium 5.5 H (3.5-5.1) mmol/L Chloride 92 L (98-107) mmol/L Carbon Dioxide 18 L (21-32) mmol/L Anion Gap 16.0 H (3-11) BUN 26 H (7-18) mg/dl Creatinine 1.57 H (0.6-1.2) mg/dl Glucose 428 H* (70-99) mg/dl POC Glucose (70-99) mg/dl Lactate 3.3 H* (0.4-2.0) mmol/L Calcium 8.0 L (8.5-10.1) mg/dl Alkaline Phosphatase 155 H (45-117) U/L Albumin 2.6 L (3.4-5.0) gm/dl Albumin/Globulin Ratio 0.7 L (0.9-2) Beta-Hydroxybutyric Acd 42.31 H (0.2-2.81) mg/dl 06/12/21 06/12/21 Range/Units 16:51 17:48 WBC (4.8-10.8) K/uL Plt Count (130-400) K/uL MPV (7.4-10.4) fL Neut # (Auto) (1.4-6.5) K/uL Lymph # (Auto) (1.2-3.4) K/uL Ida # (Auto) (0.11-0.59) K/uL Immature Gran # (Auto) (0.00-0.02) K/uL Sodium (136-145) mmol/L Potassium (3.5-5.1) mmol/L Chloride (98-107) mmol/L Carbon Dioxide (21-32) mmol/L Anion Gap (3-11) BUN (7-18) mg/dl Creatinine (0.6-1.2) mg/dl Glucose (70-99) mg/dl POC Glucose 410 H* 422 H* (70-99) mg/dl Lactate (0.4-2.0) mmol/L Calcium (8.5-10.1) mg/dl Alkaline Phosphatase (45-117) U/L Albumin (3.4-5.0) gm/dl Albumin/Globulin Ratio (0.9-2) Beta-Hydroxybutyric Acd (0.2-2.81) mg/dl Code Status & VTE Plan VTE Prophylaxis Plan VTE Prophylaxis will be ordered: Yes (1) Back pain Back pain laterality: right Back pain location: thoracic back pain Chronicity: acute Qualified Code(s): M54.6 - Pain in thoracic spine
[2021-06-12] MEDS ORDERED: PENDING 1/2NSS+20mEq KCL IVF SCH (17:15)
[2021-06-12] MEDS ORDERED: PENDING D5 1/2NS+20mEq KCL IVF SCH (17:15)
--- NOTE | 2021-06-12 17:27 | CT Scan Report ---
CT SCAN OF THE ABDOMEN AND PELVIS WITHOUT CONTRAST CLINICAL HISTORY: vomiting, poss obstruction COMPARISON STUDY: May 28, 2021 TECHNIQUE: CT scan of the abdomen and pelvis was performed from the lung bases to the proximal femurs . Images are reviewed in the axial, sagittal, and coronal planes. IV contrast was not administered fo r this examination. A dose lowering technique was utilized adhering to the principles of ALARA. CT DOSE: 384.09 mGy.cm FINDINGS: Lower chest: Redemonstration of the moderate to large right pleural effusion associated with compress leonora atelectasis within right lower lobe. Liver: The unenhanced liver is normal in size, contour, and attenuation. There is no intrahepatic santiago iary ductal dilatation. Multiple hypoattenuating lesion within right and left lobe of the liver are a gain seen likely representing metastatic disease, was better evaluated on recent CT of the abdomen an d pelvis due to intravenous contrast administration. Gallbladder: Is surgically absent. Spleen: Normal in size with multiple parenchymal calcifications. Pancreas: Is slightly atrophic. Adrenal glands: Unremarkable. Redemonstration of ill-defined soft tissue tissue attenuation inferiorl y to the right adrenal gland which might represent neoplastic lesion. Kidneys: The unenhanced kidneys are normal in size without hydronephrosis. There is no contour deform ing renal mass lesion. No renal calculi are identified. Previously seen renal cysts appear slightly l ess conspicuous due to lack of IV contrast. Bowel: Bowel loops are nondilated. Appendix is not well seen. Evaluation of the bowel is suboptimal d ue to lack of contrast. Loops of distal large bowel and rectum are distended with large amount of sto ol. Peritoneum: There is no intraperitoneal free air or abdominal ascites. Vasculature: Abdominal aorta is normal in caliber with scattered calcifications of its wall. Adenopathy: None. Pelvic viscera: Urinary bladder is adequately filled with urine. Uterus is atrophic. Skeletal structures: Severe diffuse osteopenia. Mild degenerative changes of the spine. Focal sclerot ic lesion is seen within sacrum and unchanged since prior, might represent metastasis. Also multiple osseous metastases are seen within pelvic bones, stable since prior. IMPRESSION: 1. Nondilated loops of bowel. No evidence of bowel obstruction. Large amount of stool is seen within distal large bowel and rectum. Constipation pattern. 2. Redemonstration of the liver and osseous metastatic disease. Redemonstration of the right pleural effusion, unchanged since prior. 3. The rest of findings as above. ACT 112: Negative or not required by law. The above report was generated using voice recognition software. It may contain grammatical, syntax o r spelling errors. Electronically signed by: Neha Cagle DO 06/12/2021 5:26 PM
[2021-06-12] MEDS ORDERED: ONDANSETRON INJ 2 MG/ML 2 ML VIAL IV PRN (18:04)
[2021-06-12] MEDS ORDERED: DC ALL PREVIOUSLY ORDERED DIABETES MEDS ONE (18:46)
[2021-06-12] MEDS: SODIUM CHLORIDE 0.9% 1000ML 500 ML IV SCH ×2 (18:50→18:51)
[2021-06-12] MEDS: SODIUM CHLORIDE 0.9% 1000ML 1,000 ML IV SCH (18:52)
[2021-06-12 19:56] LABS: BUN Creatinine Ratio 15.4 (10-20); Calcium 7.9 mg/dl (8.5-10.1); Creatinine Clr Calc Pharmacy 22.1 ml/min
[2021-06-12] MEDS: DOXYCYCLINE HYCLATE 100 MG CAP PO SCH (20:12)
[2021-06-12] MEDS: INSULIN ASPART 100 UNITS/ML 3 ML PEN SC SCH (20:13)
[2021-06-12] MEDS: traMADol HCL 50 MG TABLET PO PRN (20:13)
[2021-06-12] MEDS: HEPARIN SOD 5,000 UNIT/0.5 ML VIAL SQ SCH (20:15)
[2021-06-12] MEDS: cefTRIAXone SODIUM 1,000 MG in DEXTROSE 5% 50 ML IV SCH (20:30)
[2021-06-12 20:49] LABS: Magnesium 1.8 mg/dl (1.8-2.4)
[2021-06-12 20:52] LABS: Potassium 4.6 mmol/L (3.5-5.1)
[2021-06-12] MEDS ORDERED: INSULIN ASPART 100 UNITS/ML 3 ML PEN SC SCH (21:00)
[2021-06-12] MEDS ORDERED: Nursing to Pharmacy Communication SCH ×2 (21:15→23:00)
[2021-06-12] MEDS ORDERED: SODIUM CHLOR 0.45% + 20MEQ KCL 20 MEQ/1,000 ML BAG IV SCH (21:45)
[2021-06-12 23:10] LABS: BUN Creatinine Ratio 19.2 (10-20); Calcium 7.4 mg/dl (8.5-10.1); Creatinine Clr Calc Pharmacy 26.8 ml/min; Est GFR (African American) 36.7 ml/min; Est GFR (Non-African American) 31.7 ml/min; Magnesium 1.7 mg/dl (1.8-2.4)
[2021-06-12] MEDS ORDERED: PROMETHAZINE HCL 12.5 MG in SODIUM CHLORIDE 0.9% 50 ML IV ONE (23:15)
[2021-06-12] MEDS: D5W AND 1/2NSS + 20MEQ KCL 20 MEQ/1,000 ML BAG IV SCH (23:16)
[2021-06-12 23:33] LABS: Phosphorus 3.4 mg/dl (2.5-4.9)
[2021-06-13 03:27] LABS: BUN Creatinine Ratio 19.7 (10-20); Calcium 6.9 mg/dl (8.5-10.1); Est GFR (African American) 38.7 ml/min; Est GFR (Non-African American) 33.4 ml/min; Magnesium 1.8 mg/dl (1.8-2.4); Phosphorus 3.3 mg/dl (2.5-4.9); Potassium 5.3 mmol/L (3.5-5.1)
[2021-06-13] MEDS ORDERED: Nursing to Pharmacy Communication SCH (04:00)
[2021-06-13] MEDS ORDERED: SODIUM CHLORIDE 0.9% 1000ML 1,000 ML IV SCH (04:15)
[2021-06-13 05:17] LABS: Appearance Urine Clear (Clear); Bilirubin Urine Negative (Negative); Blood Urine Negative (Negative); Color Urine Dark Yellow; Glucose Urine UA 3+ (Negative); Ketones Urine 1+ (Negative); Leukocyte Esterase Urine Negative (Negative); Nitrite Urine Negative (Negative); Protein Urine Negative (Negative); Specific Gravity Urine 1.026 (1.000-1.030); Urobilinogen Urine Negative (Negative)
[2021-06-13] MEDS: HEPARIN SOD 5,000 UNIT/0.5 ML VIAL SQ SCH ×3 (05:57→20:52)
[2021-06-13] MEDS: LEVOTHYROXINE SODIUM 100 MCG TABLET PO SCH (06:40)
[2021-06-13] MEDS: SODIUM CHLORIDE 0.9% 1000ML 1,000 ML IV SCH (06:56)
[2021-06-13] MEDS: D5W AND 1/2NSS + 20MEQ KCL 20 MEQ/1,000 ML BAG IV SCH (07:04)
[2021-06-13 07:17] LABS: BUN Creatinine Ratio 20.3 (10-20); Calcium 7.2 mg/dl (8.5-10.1); Creatinine Clr Calc Pharmacy 30.4 ml/min; Est GFR (African American) 42.8 ml/min; Est GFR (Non-African American) 36.9 ml/min; Phosphorus 3.4 mg/dl (2.5-4.9)
--- NOTE | 2021-06-13 07:41 | Electrocardiogram Report ---
Test Reason : Blood Pressure : / mmHG Vent. Rate : 107 BPM Atrial Rate : 107 BPM P-R Int : 000 ms QRS Dur : 074 ms QT Int : 262 ms P-R-T Axes : 072 -58 078 degrees QTc Int : 350 ms Sinus tachycardia Left anterior fascicular block Abnormal ECG When compared with ECG of 07-JUN-2021 10:47, Left anterior fascicular block is now Present Nonspecific T wave abnormality, improved in Inferior leads Confirmed by Shilo Melton ([id number]) on 06/13/2021 7:41:29 AM Referred By: REFERRED SELF Confirmed By:Misael Melton
--- NOTE | 2021-06-13 07:43 | Electrocardiogram Report ---
Test Reason : Blood Pressure : / mmHG Vent. Rate : 111 BPM Atrial Rate : 111 BPM P-R Int : 000 ms QRS Dur : 114 ms QT Int : 182 ms P-R-T Axes : 000 076 269 degrees QTc Int : 248 ms Sinus tachycardia Left anterior fascicular block Abnormal ECG When compared with ECG of 12-JUN-2021 15:02, (unconfirmed) Significant changes have occurred Confirmed by Shilo Melton ([id number]) on 06/13/2021 7:42:44 AM Referred By: REFERRED SELF Confirmed By:Misael Melton
[2021-06-13 07:58] LABS: Magnesium 1.8 mg/dl (1.8-2.4); Potassium 4.9 mmol/L (3.5-5.1)
[2021-06-13] MEDS: traMADol HCL 50 MG TABLET PO PRN ×3 (08:08→20:45)
[2021-06-13] MEDS ORDERED: D5W AND 1/2NSS + 20MEQ KCL 20 MEQ/1,000 ML BAG IV SCH (08:30)
[2021-06-13] MEDS ORDERED: INSULIN GLARGINE SOLOSTAR 100 UNITS/ML 3 ML PEN SC ONE (09:00)
[2021-06-13] MEDS: PROMETHAZINE HCL 12.5 MG in SODIUM CHLORIDE 0.9% 50 ML IV PRN ×2 (09:03→21:43)
[2021-06-13] MEDS: DOXYCYCLINE HYCLATE 100 MG CAP PO SCH ×2 (09:05→20:45)
[2021-06-13] MEDS: CHOLECALCIFEROL 1,000 UNITS 25 MCG TAB PO SCH (09:05)
[2021-06-13] MEDS: FOLIC ACID 1 MG TAB PO SCH (09:05)
[2021-06-13] MEDS: CYANOCOBALAMIN 500 MCG TABLET (VITAMIN B-12) PO SCH (09:06)
--- NOTE | 2021-06-13 09:39 | Hospitalist Progress Note ---
Date of Service June 13, 2021 Assessment & Plan (1) DKA, type 1: Plan: Nausea, vomiting, malaise Patient is currently in DKA with anion gap of 16, bicarb of 18, blood glucose of 428, lactate of 3.3, beta hydroxybutyrate of 42.3. Anion gap is closed. Acidosis resolved. Lactic acidosis resolved Transition from IV insulin to subcu. Discussed with pharmacist. Patient to bring her insulin pump from home. Diabetes education provided Antiemetics. Awaiting hemoglobin A1c (2) Back pain: (3) History of breast cancer: (4) Shortness of breath: (5) Pleural effusion: Plan: History of breast cancer. Recent malignant effusion based on cytology. Chest XR reports interval atelectasis/infiltrate of the right lower lung bases with a small right pleural effusion. However, patient meets SIRS criteria with leukocytosis of 13,000, tachycardia. This could also be related to DKA. Procalcitonin is 0.16 Plan to dc antibiotics if blood cultures/infectious workup negative (6) Nausea and vomiting: Plan: Nausea improving Vomiting resolved at this time Antiemetics prn (7) CKD (chronic kidney disease), stage III: Plan: Cr is 1.57 on admission Cr is 1.26 Monitor renal function (8) Hypothyroidism: Plan: Continue home levothyroxine (9) DVT prophylaxis: Plan: Hep sq Code status: DNR Dispo: PCU Admission and Anticipated Discharge Date Admission Date: June 12, 2021 Subjective 75-year-old woman with history of DM type I poorly controlled on insulin pump, CKD 3, hypothyroidism, breast cancer status post mastectomy and radiation in 2013 who was recently hospitalized for worsening back pain and discharged 2 days ago for during which she was found to have metastatic lesion to bones and liver as well as right pleural effusion which was malignant on cytology, presented to the hospital with nausea, vomiting and chest tightness. Being managed for DKA Patient seen and examined today. Reports feeling better. She has some nausea. No more vomiting. Denies any chest tightness at this time. Reports occasional cough but improved. No shortness of breath. Reports chronic upper extremity swelling Reports intermittent back pain Review of Systems 2 Constitutional: + fatigue, + malaise and + anorexia; no fever and no chills Eyes: no problem reported Ear, Nose, Mouth, Throat: no problem reported Respiratory: + cough; no dyspnea Gastrointestinal: + nausea; no abdominal pain, no vomiting and no diar stewart/loose stools Genitourinary: no dysuria, no difficulty urinating and no urinary frequency Musculoskeletal: + back pain Neurologic: no headache(s) and no confusion Psychiatric: no depression and no anxiety Physical Exam Constitutional: + ill appearing; no acute distress Eyes: PERRL, conjunctivae normal, anicteric sclerae ENMT: external ear and nose normal, oropharynx normal Respiratory: normal respiratory effort; no respiratory distress Diminished lung sounds right lung base. No crackles Cardiovascular: Rate/Rhythm: regular rate and regular rhythm S1-S2 No pedal edema Gastrointestinal (Abdomen): normal bowel sounds, soft, nontender, no hepatosplenomegaly Musculoskeletal: no cyanosis or clubbing, extremities motor strength 5/5 Neurologic: PERRL, EOMI, accommodation nl, no face palsy, no dysarthria Psychiatric: A+Ox3, euthymic affect Results & Data Results & Data ([facility]) Vital Signs (Past 12 Hours) Vital Signs Temp Pulse Pulse Resp BP Pulse Ox 06/13/21 07:48 36.4 C L 89 16 96/56 L 96 06/13/21 07:19 88 06/13/21 03:55 36.8 C 93 H 18 121/76 95 06/12/21 23:48 36.5 C 99 H 16 96/62 L 94 Laboratory Results Abnormal lab results 06/12/21 06/12/21 06/12/21 Range/Units 15:00 15:00 15:45 WBC 13.10 H (4.8-10.8) K/uL Hct (37-47) % Plt Count 512 H (130-400) K/uL MPV 11.6 H (7.4-10.4) fL Neut # (Auto) 11.07 H (1.4-6.5) K/uL Lymph # (Auto) 1.10 L (1.2-3.4) K/uL Sanders # (Auto) 0.80 H (0.11-0.59) K/uL Immature Gran # (Auto) 0.03 H (0.00-0.02) K/uL VBG pH (7.36-7.41) Sodium 126 L (136-145) mmol/L Potassium 5.5 H (3.5-5.1) mmol/L Chloride 92 L (98-107) mmol/L Carbon Dioxide 18 L (21-32) mmol/L Anion Gap 16.0 H (3-11) BUN 26 H (7-18) mg/dl Creatinine 1.57 H (0.6-1.2) mg/dl BUN/Creatinine Ratio (10-20) Glucose 428 H* (70-99) mg/dl POC Glucose (70-99) mg/dl Lactate 3.3 H* (0.4-2.0) mmol/L Calcium 8.0 L (8.5-10.1) mg/dl Magnesium (1.8-2.4) mg/dl Alkaline Phosphatase 155 H (45-117) U/L Albumin 2.6 L (3.4-5.0) gm/dl Albumin/Globulin Ratio 0.7 L (0.9-2) Beta-Hydroxybutyric Acd 42.31 H (0.2-2.81) mg/dl Urine Glucose (UA) (Negative) Urine Ketones (Negative) 06/12/21 06/12/21 06/12/21 Range/Units 16:51 17:48 18:21 WBC (4.8-10.8) K/uL Hct (37-47) % Plt Count (130-400) K/uL MPV (7.4-10.4) fL Neut # (Auto) (1.4-6.5) K/uL Lymph # (Auto) (1.2-3.4) K/uL Sanders # (Auto) (0.11-0.59) K/uL Immature Gran # (Auto) (0.00-0.02) K/uL VBG pH (7.36-7.41) Sodium (136-145) mmol/L Potassium (3.5-5.1) mmol/L Chloride (98-107) mmol/L Carbon Dioxide (21-32) mmol/L Anion Gap (3-11) BUN (7-18) mg/dl Creatinine (0.6-1.2) mg/dl BUN/Creatinine Ratio (10-20) Glucose (70-99) mg/dl POC Glucose 410 H* 422 H* (70-99) mg/dl Lactate 3.9 H* (0.4-2.0) mmol/L Calcium (8.5-10.1) mg/dl Magnesium (1.8-2.4) mg/dl Alkaline Phosphatase (45-117) U/L Albumin (3.4-5.0) gm/dl Albumin/Globulin Ratio (0.9-2) Beta-Hydroxybutyric Acd (0.2-2.81) mg/dl Urine Glucose (UA) (Negative) Urine Ketones (Negative) 06/12/21 06/12/21 06/12/21 Range/Units 18:43 19:13 19:13 WBC (4.8-10.8) K/uL Hct (37-47) % Plt Count (130-400) K/uL MPV (7.4-10.4) fL Neut # (Auto) (1.4-6.5) K/uL Lymph # (Auto) (1.2-3.4) K/uL Sanders # (Auto) (0.11-0.59) K/uL Immature Gran # (Auto) (0.00-0.02) K/uL VBG pH 7.29 L (7.36-7.41) Sodium 131 L (136-145) mmol/L Potassium (3.5-5.1) mmol/L Chloride (98-107) mmol/L Carbon Dioxide 16 L (21-32) mmol/L Anion Gap 15.0 H (3-11) BUN 30 H (7-18) mg/dl Creatinine 1.93 H D (0.6-1.2) mg/dl BUN/Creatinine Ratio (10-20) Glucose 240 H (70-99) mg/dl POC Glucose 316 H* (70-99) mg/dl Lactate (0.4-2.0) mmol/L Calcium 7.9 L (8.5-10.1) mg/dl Magnesium (1.8-2.4) mg/dl Alkaline Phosphatase (45-117) U/L Albumin (3.4-5.0) gm/dl Albumin/Globulin Ratio (0.9-2) Beta-Hydroxybutyric Acd (0.2-2.81) mg/dl Urine Glucose (UA) (Negative) Urine Ketones (Negative) 06/12/21 06/12/21 06/12/21 Range/Units 19:43 20:47 21:47 WBC (4.8-10.8) K/uL Hct (37-47) % Plt Count (130-400) K/uL MPV (7.4-10.4) fL Neut # (Auto) (1.4-6.5) K/uL Lymph # (Auto) (1.2-3.4) K/uL Sanders # (Auto) (0.11-0.59) K/uL Immature Gran # (Auto) (0.00-0.02) K/uL VBG pH (7.36-7.41) Sodium (136-145) mmol/L Potassium (3.5-5.1) mmol/L Chloride (98-107) mmol/L Carbon Dioxide (21-32) mmol/L Anion Gap (3-11) BUN (7-18) mg/dl Creatinine (0.6-1.2) mg/dl BUN/Creatinine Ratio (10-20) Glucose (70-99) mg/dl POC Glucose 251 H 240 H 236 H (70-99) mg/dl Lactate (0.4-2.0) mmol/L Calcium (8.5-10.1) mg/dl Magnesium (1.8-2.4) mg/dl Alkaline Phosphatase (45-117) U/L Albumin (3.4-5.0) gm/dl Albumin/Globulin Ratio (0.9-2) Beta-Hydroxybutyric Acd (0.2-2.81) mg/dl Urine Glucose (UA) (Negative) Urine Ketones (Negative) 06/12/21 06/12/21 06/12/21 Range/Units 22:41 22:43 23:53 WBC (4.8-10.8) K/uL Hct (37-47) % Plt Count (130-400) K/uL MPV (7.4-10.4) fL Neut # (Auto) (1.4-6.5) K/uL Lymph # (Auto) (1.2-3.4) K/uL Sanders # (Auto) (0.11-0.59) K/uL Immature Gran # (Auto) (0.00-0.02) K/uL VBG pH (7.36-7.41) Sodium 134 L (136-145) mmol/L Potassium (3.5-5.1) mmol/L Chloride (98-107) mmol/L Carbon Dioxide (21-32) mmol/L Anion Gap (3-11) BUN 31 H (7-18) mg/dl Creatinine 1.59 H D (0.6-1.2) mg/dl BUN/Creatinine Ratio (10-20) Glucose 171 H (70-99) mg/dl POC Glucose 182 H 177 H (70-99) mg/dl Lactate (0.4-2.0) mmol/L Calcium 7.4 L (8.5-10.1) mg/dl Magnesium 1.7 L (1.8-2.4) mg/dl Alkaline Phosphatase (45-117) U/L Albumin (3.4-5.0) gm/dl Albumin/Globulin Ratio (0.9-2) Beta-Hydroxybutyric Acd (0.2-2.81) mg/dl Urine Glucose (UA) (Negative) Urine Ketones (Negative) 06/13/21 06/13/21 06/13/21 Range/Units 00:48 01:49 02:53 WBC (4.8-10.8) K/uL Hct (37-47) % Plt Count (130-400) K/uL MPV (7.4-10.4) fL Neut # (Auto) (1.4-6.5) K/uL Lymph # (Auto) (1.2-3.4) K/uL Sanders # (Auto) (0.11-0.59) K/uL Immature Gran # (Auto) (0.00-0.02) K/uL VBG pH (7.36-7.41) Sodium 130 L (136-145) mmol/L Potassium 5.3 H (3.5-5.1) mmol/L Chloride (98-107) mmol/L Carbon Dioxide (21-32) mmol/L Anion Gap (3-11) BUN 30 H (7-18) mg/dl Creatinine 1.52 H (0.6-1.2) mg/dl BUN/Creatinine Ratio (10-20) Glucose 292 H (70-99) mg/dl POC Glucose 211 H 229 H (70-99) mg/dl Lactate (0.4-2.0) mmol/L Calcium 6.9 L (8.5-10.1) mg/dl Magnesium (1.8-2.4) mg/dl Alkaline Phosphatase (45-117) U/L Albumin (3.4-5.0) gm/dl Albumin/Globulin Ratio (0.9-2) Beta-Hydroxybutyric Acd (0.2-2.81) mg/dl Urine Glucose (UA) (Negative) Urine Ketones (Negative) 06/13/21 06/13/21 06/13/21 Range/Units 03:49 04:55 05:02 WBC (4.8-10.8) K/uL Hct (37-47) % Plt Count (130-400) K/uL MPV (7.4-10.4) fL Neut # (Auto) (1.4-6.5) K/uL Lymph # (Auto) (1.2-3.4) K/uL Sanders # (Auto) (0.11-0.59) K/uL Immature Gran # (Auto) (0.00-0.02) K/uL VBG pH (7.36-7.41) Sodium (136-145) mmol/L Potassium (3.5-5.1) mmol/L Chloride (98-107) mmol/L Carbon Dioxide (21-32) mmol/L Anion Gap (3-11) BUN (7-18) mg/dl Creatinine (0.6-1.2) mg/dl BUN/Creatinine Ratio (10-20) Glucose (70-99) mg/dl POC Glucose 295 H 296 H (70-99) mg/dl Lactate (0.4-2.0) mmol/L Calcium (8.5-10.1) mg/dl Magnesium (1.8-2.4) mg/dl Alkaline Phosphatase (45-117) U/L Albumin (3.4-5.0) gm/dl Albumin/Globulin Ratio (0.9-2) Beta-Hydroxybutyric Acd (0.2-2.81) mg/dl Urine Glucose (UA) 3+ H (Negative) Urine Ketones 1+ H (Negative) 06/13/21 06/13/21 06/13/21 Range/Units 05:53 06:41 06:45 WBC (4.8-10.8) K/uL Hct (37-47) % Plt Count (130-400) K/uL MPV (7.4-10.4) fL Neut # (Auto) (1.4-6.5) K/uL Lymph # (Auto) (1.2-3.4) K/uL Sanders # (Auto) (0.11-0.59) K/uL Immature Gran # (Auto) (0.00-0.02) K/uL VBG pH (7.36-7.41) Sodium 133 L (136-145) mmol/L Potassium (3.5-5.1) mmol/L Chloride (98-107) mmol/L Carbon Dioxide (21-32) mmol/L Anion Gap (3-11) BUN 28 H (7-18) mg/dl Creatinine 1.40 H (0.6-1.2) mg/dl BUN/Creatinine Ratio 20.3 H (10-20) Glucose 238 H (70-99) mg/dl POC Glucose 257 H 213 H (70-99) mg/dl Lactate (0.4-2.0) mmol/L Calcium 7.2 L (8.5-10.1) mg/dl Magnesium (1.8-2.4) mg/dl Alkaline Phosphatase (45-117) U/L Albumin (3.4-5.0) gm/dl Albumin/Globulin Ratio (0.9-2) Beta-Hydroxybutyric Acd (0.2-2.81) mg/dl Urine Glucose (UA) (Negative) Urine Ketones (Negative) 06/13/21 06/13/21 06/13/21 Range/Units 07:59 08:51 09:37 WBC 14.30 H (4.8-10.8) K/uL Hct 36.6 L (37-47) % Plt Count (130-400) K/uL MPV 10.7 H (7.4-10.4) fL Neut # (Auto) 11.69 H (1.4-6.5) K/uL Lymph # (Auto) 1.19 L (1.2-3.4) K/uL Sanders # (Auto) 1.32 H (0.11-0.59) K/uL Immature Gran # (Auto) 0.04 H (0.00-0.02) K/uL VBG pH (7.36-7.41) Sodium (136-145) mmol/L Potassium (3.5-5.1) mmol/L Chloride (98-107) mmol/L Carbon Dioxide (21-32) mmol/L Anion Gap (3-11) BUN (7-18) mg/dl Creatinine (0.6-1.2) mg/dl BUN/Creatinine Ratio (10-20) Glucose (70-99) mg/dl POC Glucose 196 H 216 H (70-99) mg/dl Lactate (0.4-2.0) mmol/L Calcium (8.5-10.1) mg/dl Magnesium (1.8-2.4) mg/dl Alkaline Phosphatase (45-117) U/L Albumin (3.4-5.0) gm/dl Albumin/Globulin Ratio (0.9-2) Beta-Hydroxybutyric Acd (0.2-2.81) mg/dl Urine Glucose (UA) (Negative) Urine Ketones (Negative) 06/13/21 06/13/21 06/13/21 Range/Units 09:56 10:31 10:56 WBC (4.8-10.8) K/uL Hct (37-47) % Plt Count (130-400) K/uL MPV (7.4-10.4) fL Neut # (Auto) (1.4-6.5) K/uL Lymph # (Auto) (1.2-3.4) K/uL Sanders # (Auto) (0.11-0.59) K/uL Immature Gran # (Auto) (0.00-0.02) K/uL VBG pH (7.36-7.41) Sodium 131 L (136-145) mmol/L Potassium (3.5-5.1) mmol/L Chloride (98-107) mmol/L Carbon Dioxide 20 L (21-32) mmol/L Anion Gap (3-11) BUN 27 H (7-18) mg/dl Creatinine 1.26 H (0.6-1.2) mg/dl BUN/Creatinine Ratio 21.7 H (10-20) Glucose 214 H (70-99) mg/dl POC Glucose 245 H 208 H (70-99) mg/dl Lactate (0.4-2.0) mmol/L Calcium 7.1 L (8.5-10.1) mg/dl Magnesium (1.8-2.4) mg/dl Alkaline Phosphatase (45-117) U/L Albumin (3.4-5.0) gm/dl Albumin/Globulin Ratio (0.9-2) Beta-Hydroxybutyric Acd (0.2-2.81) mg/dl Urine Glucose (UA) (Negative) Urine Ketones (Negative) 06/13/21 06/13/21 Range/Units 11:54 12:55 WBC (4.8-10.8) K/uL Hct (37-47) % Plt Count (130-400) K/uL MPV (7.4-10.4) fL Neut # (Auto) (1.4-6.5) K/uL Lymph # (Auto) (1.2-3.4) K/uL Sanders # (Auto) (0.11-0.59) K/uL Immature Gran # (Auto) (0.00-0.02) K/uL VBG pH (7.36-7.41) Sodium (136-145) mmol/L Potassium (3.5-5.1) mmol/L Chloride (98-107) mmol/L Carbon Dioxide (21-32) mmol/L Anion Gap (3-11) BUN (7-18) mg/dl Creatinine (0.6-1.2) mg/dl BUN/Creatinine Ratio (10-20) Glucose (70-99) mg/dl POC Glucose 216 H 197 H (70-99) mg/dl Lactate (0.4-2.0) mmol/L Calcium (8.5-10.1) mg/dl Magnesium (1.8-2.4) mg/dl Alkaline Phosphatase (45-117) U/L Albumin (3.4-5.0) gm/dl Albumin/Globulin Ratio (0.9-2) Beta-Hydroxybutyric Acd (0.2-2.81) mg/dl Urine Glucose (UA) (Negative) Urine Ketones (Negative) (1) Back pain Back pain laterality: right Back pain location: thoracic back pain Chronici ty: acute Qualified Code(s): M54.6 - Pain in thoracic spine
[2021-06-13] MEDS: INSULIN ASPART 100 UNITS/ML 3 ML PEN SC SCH ×4 (10:30→20:49)
[2021-06-13 10:45] LABS: Basophils # (auto) 0.02 K/uL (0-0.2); Basophils % (auto) 0.1 %; Eosinophils # (auto) 0.04 K/uL (0-0.5); Eosinophils % (auto) 0.3 %; Hematocrit (blood only) 36.6 % (37-47); Hemoglobin 12.3 g/dL (12.0-16.0); Immature Granulocytes # (auto) 0.04 K/uL (0.00-0.02); Immature Granulocytes % (auto) 0.3 %; Lymphocytes # (auto) 1.19 K/uL (1.2-3.4); Lymphocytes % (auto) 8.3 %; Mean Corpuscular Hemoglobin 29.1 pg (25-34); Mean Corpuscular Hgb Conc 33.6 g/dL (32-36); Mean Corpuscular Volume 86.5 fL (80-100); Mean Platelet Volume 10.7 fL (7.4-10.4); Monocytes # (auto) 1.32 K/uL (0.11-0.59); Monocytes % (auto) 9.2 %; Neutrophils # (auto) 11.69 K/uL (1.4-6.5); Neutrophils % (auto) 81.8 %; Platelet Count 398 K/uL (130-400); Platelet Estimate Normal (Normal); RDW Coefficient of Variation 13.3 % (11.5-14.5); RDW Standard Deviation 41.9 fL (36.4-46.3); Red Blood Count 4.23 M/uL (4.2-5.4)
[2021-06-13 10:59] LABS: BUN Creatinine Ratio 21.7 (10-20); Calcium 7.1 mg/dl (8.5-10.1); Creatinine Clr Calc Pharmacy 33.8 ml/min; Est GFR (African American) 48.6 ml/min; Est GFR (Non-African American) 41.9 ml/min; Magnesium 1.8 mg/dl (1.8-2.4); Phosphorus 2.9 mg/dl (2.5-4.9); Potassium 4.4 mmol/L (3.5-5.1)
[2021-06-13] MEDS ORDERED: DC IV INSULIN INFUSION 1 EA DEVI SCH (15:00)
[2021-06-13] MEDS ORDERED: HYDROmorphone INJ 0.5 MG/0.5 ML SYR IV PRN (17:01)
[2021-06-13] MEDS: cefTRIAXone SODIUM 1,000 MG in DEXTROSE 5% 50 ML IV SCH (17:15)
[2021-06-13] MEDS: POLYETHYLENE (MIRALAX) 17 GM PACK PO SCH (17:28)
[2021-06-14] MEDS: LEVOTHYROXINE SODIUM 100 MCG TABLET PO SCH (06:32)
[2021-06-14] MEDS: HEPARIN SOD 5,000 UNIT/0.5 ML VIAL SQ SCH ×3 (06:32→21:30)
[2021-06-14 07:40] LABS: Hematocrit (blood only) 38.1 % (37-47); Hemoglobin 12.5 g/dL (12.0-16.0); Mean Corpuscular Hemoglobin 28.7 pg (25-34); Mean Corpuscular Hgb Conc 32.8 g/dL (32-36); Mean Corpuscular Volume 87.4 fL (80-100); Mean Platelet Volume 10.2 fL (7.4-10.4); Platelet Count 497 K/uL (130-400); Red Blood Count 4.36 M/uL (4.2-5.4); White Blood Count 13.07 K/uL (4.8-10.8)
[2021-06-14 07:58] LABS: BUN Creatinine Ratio 23.3 (10-20); Creatinine Clr Calc Pharmacy 39.8 ml/min; Est GFR (African American) 59.2 ml/min; Est GFR (Non-African American) 51.1 ml/min; Potassium 4.7 mmol/L (3.5-5.1)
[2021-06-14 08:13] LABS: Estimated Average Glucose 260 mg/dl; Hemoglobin A1C 10.7 % (4.5-5.6)
[2021-06-14] MEDS: traMADol HCL 50 MG TABLET PO PRN (08:24)
[2021-06-14] MEDS: CHOLECALCIFEROL 1,000 UNITS 25 MCG TAB PO SCH (08:25)
[2021-06-14] MEDS: FOLIC ACID 1 MG TAB PO SCH (08:25)
[2021-06-14] MEDS: CYANOCOBALAMIN 500 MCG TABLET (VITAMIN B-12) PO SCH (08:25)
[2021-06-14] MEDS: POLYETHYLENE (MIRALAX) 17 GM PACK PO SCH (08:26)
[2021-06-14] MEDS: DOCUSATE SODIUM/SENNA 50/8.6MG TAB PO SCH (08:26)
[2021-06-14] MEDS: DOXYCYCLINE HYCLATE 100 MG CAP PO SCH (08:26)
[2021-06-14] MEDS: INSULIN ASPART 100 UNITS/ML 3 ML PEN SC SCH ×2 (08:27→12:13)
[2021-06-14] MEDS ORDERED: INSULIN GLARGINE SOLOSTAR 100 UNITS/ML 3 ML PEN SC SCH (09:00)
[2021-06-14] MEDS ORDERED: POLYETHYLENE (MIRALAX) 17 GM PACK PO PRN (10:06)
[2021-06-14] MEDS: LIDOCAINE 5% 1 PATCH TD SCH (10:55)
--- NOTE | 2021-06-14 11:19 | Hospitalist Progress Note ---
Date of Service June 14, 2021 Assessment & Plan (1) DKA, type 1: Plan: Nausea, vomiting, malaise Patient is currently in DKA with anion gap of 16, bicarb of 18, blood glucose of 428, lactate of 3.3, beta hydroxybutyrate of 42.3. DKA resolved Lactic acidosis resolved Currently on sq insulin brought her insulin pump from home today Blood glucose poorly controlled. Discussed with Pharm on board helping coordinate glycemic management Hemoglobin A1c is 10.7 Will need ketone strips on discharge (2) Back pain: (3) History of breast cancer: (4) Shortness of breath: (5) Pleural effusion: Plan: History of breast cancer. Recent malignant effusion based on cytology. Chest XR reports interval atelectasis/infiltrate of the right lower lung bases with a small right pleural effusion. However, patient meets SIRS criteria with leukocytosis of 13,000, tachycardia. This could also be related to DKA. Procalcitonin is 0.16 Antibiotics discontinued. Monitor Continue tramadol prn pain. Lidocaine patch added per pt (6) Nausea and vomiting: Plan: Nausea improving. No nausea at the time of my evaluation Vomiting resolved at this time Antiemetics prn (7) CKD (chronic kidney disease), stage III: Plan: Cr is 1.57 on admission Cr is 1.07 Monitor renal function (8) Hypothyroidism: Plan: Continue home levothyroxine (9) DVT prophylaxis: Plan: Hep sq Code status: DNR Dispo: PCU Admission and Anticipated Discharge Date Admission Date: June 12, 2021 Subjective 75-year-old woman with history of DM type I poorly controlled on insulin pump, CKD 3, hypothyroidism, breast cancer status post mastectomy and radiation in 2013 who was recently hospitalized for worsening back pain and discharged 2 days ago for during which she was found to have metastatic lesion to bones and liver as well as right pleural effusion which was malignant on cytology, presented to the hospital with nausea, vomiting and chest tightness. Being managed for DKA Patient seen and examined today. Reports feeling better. Nausea is improving. No more vomiting. No chest pain at rest. Reports pain under right rib with deep breaths. Reports occasional cough. No shortness of breath. Has chronic upper extremity swelling Reports intermittent back pain P Review of Systems Constitutional: + fatigue and + anorexia; no fever and no chills Eyes: no problem reported Ear, Nose, Mouth, Throat: no problem reported Respiratory: + cough; no dyspnea Gastrointestinal: no abdominal pain, no nausea, no vomiting and no diarrhea/loose stools Genitourinary: no dysuria, no difficulty urinating and no urinary frequency Musculoskeletal: + back pain Neurologic: no headache(s) and no confusion Psychiatric: no depression and no anxiety Physical Exam Constitutional: + ill appearing; no acute distress Eyes: PERRL, conjunctivae normal, anicteric sclerae ENMT: external ear and nose normal, oropharynx normal Respiratory: normal respiratory effort; no respiratory distress Diminished breath sounds on right lower lung zone posteriorly Cardiovascular: Rate/Rhythm: regular rate and regular rhythm S1 S2 Gastrointestinal (Abdomen): normal bowel sounds, soft, nontender, no hepatosplenomegaly Musculoskeletal: no cyanosis or clubbing, extremities motor strength 5/5 Neurologic: PERRL, EOMI, accommodation nl, no face palsy, no dysarthria Psychiatric: A+Ox3, euthymic affect Results & Data Results & Data ([facility]) Vital Signs (Past 12 Hours) Vital Signs Temp Pulse Pulse Resp BP Pulse Ox 06/14/21 07:44 36.6 C 92 H 16 96/68 L 94 06/14/21 07:15 56 L 06/14/21 04:04 36.4 C L 84 18 120/73 95 Laboratory Results Abnormal lab results 06/13/21 06/13/21 06/13/21 Range/Units 02:53 12:55 14:04 WBC (4.8-10.8) K/uL Plt Count (130-400) K/uL Sodium (136-145) mmol/L Carbon Dioxide (21-32) mmol/L BUN (7-18) mg/dl BUN/Creatinine Ratio (10-20) Glucose (70-99) mg/dl POC Glucose 197 H 179 H (70-99) mg/dl Hemoglobin A1c 10.7 H (4.5-5.6) % Calcium (8.5-10.1) mg/dl 06/13/21 06/13/21 06/13/21 Range/Units 15:01 16:11 20:44 WBC (4.8-10.8) K/uL Plt Count (130-400) K/uL Sodium (136-145) mmol/L Carbon Dioxide (21-32) mmol/L BUN (7-18) mg/dl BUN/Creatinine Ratio (10-20) Glucose (70-99) mg/dl POC Glucose 196 H 179 H 193 H (70-99) mg/dl Hemoglobin A1c (4.5-5.6) % Calcium (8.5-10.1) mg/dl 06/14/21 06/14/21 06/14/21 Range/Units 04:26 07:22 07:22 WBC 13.07 H (4.8-10.8) K/uL Plt Count 497 H (130-400) K/uL Sodium 130 L (136-145) mmol/L Carbon Dioxide 20 L (21-32) mmol/L BUN 25 H (7-18) mg/dl BUN/Creatinine Ratio 23.3 H (10-20) Glucose 270 H (70-99) mg/dl POC Glucose 207 H (70-99) mg/dl Hemoglobin A1c (4.5-5.6) % Calcium 8.0 L (8.5-10.1) mg/dl 06/14/21 06/14/21 Range/Units 07:22 11:33 WBC (4.8-10.8) K/uL Plt Count (130-400) K/uL Sodium (136-145) mmol/L Carbon Dioxide (21-32) mmol/L BUN (7-18) mg/dl BUN/Creatinine Ratio (10-20) Glucose (70-99) mg/dl POC Glucose 234 H 233 H (70-99) mg/dl Hemoglobin A1c (4.5-5.6) % Calcium (8.5-10.1) mg/dl (1) Back pain Back pain laterality: right Back pain location: thoracic back pain Chronicity: acute Qualified Code(s): M54.6 - Pain in thoracic spine
--- NOTE | 2021-06-14 13:52 | Pharmacy Report ---
Pharmacy Glycemic Short Note 2 - Date of Service June 14, 2021 - Glycemic Short BSG Results (Last 24 hours): 06/13/21 06/13/21 06/13/21 14:04 15:01 16:11 Glucose POC Glucose 179 H 196 H 179 H 06/13/21 06/14/21 06/14/21 20:44 04:26 07:22 Glucose 270 H POC Glucose 193 H 207 H 06/14/21 06/14/21 07:22 11:33 Glucose POC Glucose 234 H 233 H OUTPATIENT ANTIDIABETIC REGIMEN: * Humalog Medtronic pump * Basal: 0.75 units/hr (18 units/day) * Carb ratio: 15, SF: 50 * BG Target: 120-145 ASSESSMENT: * Meredith is a 75 yo T1DM female admitted with DKA. She was started on an IV insulin infusion on admission and was transitioned to SQ basal + bolus insulin yesterday afternoon. BSGs continue to be above goal today despite 11% increase in basal dose yesterday and 10% increase this morning. * Per discussion with Hospitalist, patient will be transitioned back to insulin pump and will require increase in basal rate (will trial 1 unit/hr). Because she received the full 24 hour dose of Lantus this AM, I will delay pump set up until this evening and use home infusion rate of 0.75 units/hr. Basal rate will need to be increased to 1 unit/hr tomorrow morning after Lantus has worn off. PLAN FOR INPATIENT GLYCEMIC CONTROL: * Basal insulin * Lantus 22 units SQ x 1 this morning * Bolus insulin * NovoLog per scale ACHS or Q6hrs while NPO * Goal Range: Low 110 mg/dL - High 140 mg/dL * Correction Factor: 30 mg/dL/unit * Nutritional / Prandial insulin per carb ratio of 1 unit per 9 grams CHO consumed Transition to home insulin pump 6/6 pm (at dinner or HS, depending on BSG): * Stop Lantus and Novolog * Resume insulin pump at home settings PLAN FOR DISCHARGE: * A1c of 10.7% is above goal (of note, this has decreased from 12.7% on 10/28/20) * Continue insulin management with humalog medtronic pump * rec increase in basal rate - dose to be determined
[2021-06-14] MEDS ORDERED: INSULIN HUMAN LISPRO (humaLOG) 100 UNITS/ML VIAL SC PRN (14:00)
[2021-06-14] MEDS: PROMETHAZINE HCL 12.5 MG in SODIUM CHLORIDE 0.9% 50 ML IV PRN (20:15)
[2021-06-15 05:38] LABS: Hematocrit (blood only) 36.9 % (37-47); Hemoglobin 12.4 g/dL (12.0-16.0); Mean Corpuscular Hgb Conc 33.6 g/dL (32-36); Mean Corpuscular Volume 86.4 fL (80-100); Mean Platelet Volume 10.2 fL (7.4-10.4); Platelet Count 543 K/uL (130-400); RDW Standard Deviation 41.5 fL (36.4-46.3); Red Blood Count 4.27 M/uL (4.2-5.4); White Blood Count 12.79 K/uL (4.8-10.8)
[2021-06-15 06:03] LABS: BUN Creatinine Ratio 22.3 (10-20); Creatinine Clr Calc Pharmacy 43.5 ml/min; Est GFR (African American) 65.9 ml/min; Est GFR (Non-African American) 56.8 ml/min; Magnesium 1.7 mg/dl (1.8-2.4); Potassium 4.1 mmol/L (3.5-5.1)
[2021-06-15] MEDS ORDERED: CARBOHYDRATES FOR HYPOGLYCEMIA PO ONE (06:12)
[2021-06-15] MEDS: HEPARIN SOD 5,000 UNIT/0.5 ML VIAL SQ SCH (06:13)
[2021-06-15] MEDS: LEVOTHYROXINE SODIUM 100 MCG TABLET PO SCH (06:13)
[2021-06-15] MEDS ORDERED: GLUCOSE 10 TABS/TUBE PO PRN (06:45)
[2021-06-15] MEDS ORDERED: DEXTROSE 50% 50 ML SYRINGE IV PRN (06:45)
[2021-06-15] MEDS ORDERED: CARBOHYDRATES FOR HYPOGLYCEMIA PO PRN (06:45)
[2021-06-15] MEDS ORDERED: GLUCOSE 40% GEL 15 GM TUBE PO PRN (06:45)
[2021-06-15] MEDS ORDERED: GLUCAGON FOR INJ 1 MG VIAL IM PRN (06:45)
[2021-06-15] MEDS ORDERED: DEXTROSE 50% 50 ML SYRINGE IV STA (06:52)
[2021-06-15] MEDS: DOCUSATE SODIUM/SENNA 50/8.6MG TAB PO SCH (08:12)
[2021-06-15] MEDS: CHOLECALCIFEROL 1,000 UNITS 25 MCG TAB PO SCH (08:12)
[2021-06-15] MEDS: FOLIC ACID 1 MG TAB PO SCH (08:12)
[2021-06-15] MEDS: CYANOCOBALAMIN 500 MCG TABLET (VITAMIN B-12) PO SCH (08:13)
[2021-06-15] MEDS: LIDOCAINE 5% 1 PATCH TD SCH (08:13)
--- NOTE | 2021-06-15 09:27 | Pharmacy Report ---
Pharmacy Glycemic Short Note 2 - Date of Service June 15, 2021 - Glycemic Short BSG Results (Last 24 hours): 06/14/21 06/14/21 06/14/21 11:33 16:15 20:20 Glucose POC Glucose 233 H 244 H 96 06/15/21 06/15/21 06/15/21 05:17 06:08 06:10 Glucose 42 L* POC Glucose 39 L* 42 L* 06/15/21 06/15/21 06/15/21 06:24 06:43 07:06 Glucose POC Glucose 54 L* 62 L* 179 H OUTPATIENT ANTIDIABETIC REGIMEN: * Humalog Medtronic pump * Basal: 0.75 units/hr (18 units/day) * Carb ratio: 15, SF: 50 * BG Target: 120-145 ASSESSMENT: 06/15 * Pt with LOW BSG this morning despite decrease in basal rate on pump. * Will not give any additional SQ Lantus today - will let patient manage BSGs with pump monotherapy. 06/14 * Meredith is a 75 yo T1DM female admitted with DKA. She was started on an IV insulin infusion on admission and was transitioned to SQ basal + bolus insulin yesterday afternoon. BSGs continue to be above goal today despite 11% increase in basal dose yesterday and 10% increase this morning. * Per discussion with Hospitalist, patient will be transitioned back to insulin pump and will require increase in basal rate (will trial 1 unit/hr). Because she received the full 24 hour dose of Lantus this AM, I will delay pump set up until this evening and use home infusion rate of 0.75 units/hr. Basal rate will need to be increased to 1 unit/hr tomorrow morning after Lantus has worn off. PLAN FOR INPATIENT GLYCEMIC CONTROL: Pt is to manage BSGs with insulin pump per outpatient settings. * RN will have patient read and sign agreement [id number] Insulin Pump Therapy Patient Agreement. * RN will provide and explain form [id number] Flowsheet for Patient * Patient will document their insulin dose given on [id number] which is kept at the bedside, available to caregivers upon request, and which becomes part of the permanent medical record. If at any time the patients condition evidences that he/she is not able to manage the insulin pump (i.e. frequent hypo/hyperglycemia) Pharmacy will assume glycemic control by discontinuing the pump & managing with SQ basal bolus insulin regimen for the interim. PLAN FOR DISCHARGE: * A1c of 10.7% is above goal (of note, this has decreased from 12.7% on 10/28/20) * Continue insulin management with humalog medtronic pump * rec increase in basal rate - dose to be determined
--- NOTE | 2021-06-15 11:37 | Discharge Summary ---
Date of Service June 15, 2021 Admission HPI Per Admitting Provider 75-year-old woman with history of DM type I poorly controlled on insulin pump, CKD 3, hypothyroidism, breast cancer status post mastectomy and radiation in 2013 who was recently hospitalized for worsening back pain and discharged 2 days ago for during which she was found to have metastatic lesion to bones and liver as well as right pleural effusion which was malignant on cytology, presents today with nausea and chest tightness. Patient reported that she had been having intermittent nausea since recent hospitalization. However, this morning she started having some chest tightness associated with malaise, nausea and vomiting with mild shortness of breath. Has been having intermittent cough since last hospitalization. Denies any fevers, chills. Denied any abdominal pain, diarrhea. Denied dysuria, frequency or urgency. Reports that her blood glucose at home has been running between 150s to 200s using her insulin pump. Admission Exam Per Admitting Provider Constitutional: + ill appearing; no acute distress Eyes: PERRL, conjunctivae normal, anicteric sclerae ENMT: external ear and nose normal, oropharynx normal Respiratory: normal respiratory effort; no respiratory distress Diminished breath sounds right lung base posteriorly. No crackles Cardiovascular: Rate/Rhythm: regular rhythm and + tachycardic S1-S2 Gastrointestinal (Abdomen): normal bowel sounds, soft, nontender, no hepatosplenomegaly Musculoskeletal: no cyanosis or clubbing, extremities motor strength 5/5 Neurologic: PERRL, EOMI, accommodation nl, no face palsy, no dysarthria Psychiatric: A+Ox3, euthymic affect Principal Diagnosis Diabetic ketoacidosis Hyponatremia Acute on chronic kidney disease stage 3 Discharge Exam Constitutional + ill appearing; no acute distress Eyes PERRL, conjunctivae normal, anicteric sclerae ENMT external ear and nose normal, oropharynx normal Respiratory normal respiratory effort; no respiratory distress Cardiovascular Rate/Rhythm: regular rate and regular rhythm Gastrointestinal (Abdomen) normal bowel sounds, soft, nontender, no hepatosplenomegaly Musculoskeletal no cyanosis or clubbing, extremities motor strength 5/5 Neurologic PERRL, EOMI, accommodation nl, no face palsy, no dysarthria Psychiatric A+Ox3, euthymic affect Discharge Data Allergies Allergy/AdvReac Type Severity Reaction Status Date / Time Sulfa (Sulfonamide Allergy Verified 06/07/21 10:21 Antibiotics) Consultations 06/12/21 16:39 ED Decision to Admit Stat Ordered Studies 06/12/21 15:23 CT abd pelvis wo con Stat Diabetes Follow up Diabetes Follow-up Needed for HgbA1c >9% Hospital Course (1) DKA, type 1: Nausea, vomiting, malaise On admission, patient was in DKA with anion gap of 16, bicarb of 18, blood glucose of 428, lactate of 3.3, beta hydroxybutyrate of 42.3. DKA was managed with IV and insulin drip per protocol DKA resolved Lactic acidosis resolved Hemoglobin A1c is 10.7 Diabetes education was provided. aerodynamic consultant also had some sessions with patient and Patient advised to monitor blood glucose and keep blood glucose around 100-150 and to let providers know if persistently above 200 Was also educated on hypoglycemia and management Ketone strips prescribed on discharge (2) Back pain: (3) History of breast cancer: (4) Shortness of breath: (5) Pleural effusion: History of breast cancer. Recent malignant effusion based on cytology. Chest XR reports interval atelectasis/infiltrate of the right lower lung bases with a small right pleural effusion. However, patient meets SIRS criteria with leukocytosis of 13,000, tachycardia. Was initially started on antibiotics but this was discontinued Patient advised to follow up with already scheduled Oncology appointment from recent admission for further evaluation/prognostication and management Pain controlled with tramadol prn and lidocaine patch. Patient will like some lidocaine patch prescribed. Home health already set up from recent admission (6) Nausea and vomiting: Likely due to DKA Resovled (7) CKD (chronic kidney disease), stage III: RAJ on CKD3 Cr is 1.57 on admission (baseline usually around 1.5), went up to 1.9 and improved Cr is 0.98 today (8) Hypothyroidism: Continue home levothyroxine Total Time Total Time Spent Total Time Spent (In Minutes): 55 Total Time Includes: Examination of the Patient, Discharge Planning and Medication Reconciliation Discharge Plan Discharge Items Patient Disposition: Home - Self-Care Reason For Visit: NAUSEA Discharge Diagnosis: Diabetic ketoacidosis Hyponatremia Condition on Discharge: Fair Activity: Resume your previous activity Non-emergency contact: Primary Care Provider and Oncologist Call non-emergency contact if: you have any medication questions and your symptoms worsen Follow-up/Referrals: Omar Virgen MD [Primary Care Provider] - (Date & Time 06/16/2021 11:00 AM Provider Dileep Gonzales MD Department [facility] ) Diet: Carb Count or DM1 Addtl Attending Provider Instructions: Mrs Dwyer. You came to the hospital complaining of nausea, vomiting and chest tightness. You were evaluated and found to have diabetic ketoacidosis. You were managed with insulin drip and then transitioned back to your insulin pump. Please monitor your blood glucose at home as advised to avoid persistent high blood glucose as well as low blood glucose levels. Your hemoglobin A1c is 10.7% on 06/13/21. This blood test tells how controlled your blood glucose has been in the prior 3 months. For most diabetics, this level should be below 8%. However, this goal is usually individualized. Please aim to maintain blood glucose below 200 (Ideally less than 150). Monitor for hypoglycemia. Please notify your provider if blood glucose is frequently above 200 or below 70. If you have any questions, you can call [facility] Diabetes office at [phone]. Please ensure you keep your appointment with the Oncologist. It was a pleasure taking care of you. Pending Studies at Discharge: No Stand-Alone Forms: My [facility], Smoking Cessation Medications and DC Order Prescriptions: New lidocaine 5 % Adhesive Patch,Medicated 1 patch transdermal QAM Qty: 7 RF: 0 (DME) Ketone Urine Test Strip See Rx Instructions .Route Qty: 100 RF: 0 Continued Humalog U-100 Insulin 100 unit/mL Cartridge 1 sliding scale dose continuous subcutaneous infusion UD Qty: 0 RF: 0 sennosides-docusate sodium 8.6-50 mg Tablet 1 tab PO QAM PRN (Reason: Constipation) Qty: 0 RF: 0 folic acid 1 mg Tablet 1 mg PO QAM Qty: 0 RF: 0 cholecalciferol (vitamin D3) 1,000 unit Capsule 1,000 unit PO QAM Qty: 0 RF: 0 levothyroxine 100 mcg tablet 100 mcg PO QAM 90 Days Qty: 90 RF: 3 biotin 1 mg tablet 1 mg PO QAM RF: 0 cyanocobalamin (vitamin B-12) [Vitamin B-12] 500 mcg Tablet 500 mcg PO DAILY RF: 0 polyethylene glycol 3350 [Miralax] 17 gram/dose Powder 17 g PO DAILY RF: 0 acetaminophen 325 mg Tablet 650 mg PO Q4H PRN (Reason: mild pain (scale score 1-4)) Qty: 60 RF: 0 tramadol 50 mg Tablet 50 mg PO Q6H PRN (Reason: Moderate or severe pain) Qty: 60 RF: 0 ondansetron HCl 8 mg tablet 8 mg PO DAILY PRN (Reason: Nausea) RF: 0 Discharge Orders: Discharge Order (Routine); Ordered 06/15/21 Ordered By: Stephy Lemon Admission Data Admit Date/Time: 06/12/21 17:02 Attending Provider: Stephy Lemon I. Admit Provider: Stephy Lemon I. Primary Care Provider: Omar Virgen Other Providers: Stephy Lemon I. ; [facility],Home Healthcare Other Interventions: Discharge Summary Assessment (RN) Last Done: 06/15/21 11:37
[2021-06-15] MEDS: traMADol HCL 50 MG TABLET PO PRN (11:51)
== END 2021-06-15 12:19 | disposition home health service (06) | DRG 638 ==
LOC: ED 14:55 → 2S 17:02

== ENCOUNTER 2021-07-01 21:24 | Observation (INO) ==
[~2021-07-01 21:24] MED LIST changes: -CHOL1TAB42 PO; -FOLI1TAB8 PO; -INSPMPHMLG; -LEVO100T7 PO; +ONDANSETRON 4 MG OD TAB ONE; -SENNTAB23 PO
[2021-07-01] MEDS ORDERED: MoRPHine SULFATE 10 MG/ML CARP/VIAL IV STA (21:46)
[2021-07-01] MEDS ORDERED: ONDANSETRON INJ 2 MG/ML 2 ML VIAL IV STA (21:46)
[2021-07-01] MEDS ORDERED: SODIUM CHLORIDE 0.9% 1000ML 500 ML IV ONE (21:48)
[2021-07-01] MEDS ORDERED: SODIUM CHLORIDE 0.9% 1000ML 1,000 ML IV ONE (21:51)
--- NOTE | 2021-07-01 21:51 | Emergency Department Note ---
Impression & Plan Chest pain, Arm pain, RAJ (acute kidney injury), Leukocytosis, Metabolic acidosis ED Provider Note NAME: CANDICE SEN AGE: 75 SEX: F : 1945 ARRIVES VIA: Ambulance INFORMANT: Patient ED PROVIDER(S): Elfego Lee DO CHIEF COMPLAINT: chest pain and arm pain HPI: Patient is a 75-year-old female with diabetes and metastatic breast cancer stage IV the presents the ER for right-sided chest pain and right upper arm pain. Symptoms started after having her lung tapped by Dr. Fernandez earlier today. She had 1 L off. She admits to a cough. Denies any belly pain, nausea, vomiting, or diarrhea. No dysuria, urgency, or frequency. No other exacerb ating or remitting factors. Pain is severe and a 10 out of 10. Improves with placing ice on the chest. She has had radiation. She notes that otherwise she cannot get comfortable. ROS: See above HPI for pertinent positives & negatives. A total of 10 systems reviewed and were otherwise negative. PAST MEDICAL HISTORY:See Below PAST SURGICAL HISTORY:See Below FAMILY HISTORY:See Below SOCIAL HISTORY:See Below HOME MEDICATIONS:See Below ALLERGIES:See Below VITALS:See Below PHYSICAL EXAMINATION: GENERAL: Sitting up in bed, alert sitting up in bed significant distress holding right side EYE EXAM: normal conjunctiva. PERRL and EOM's grossly intact. OROPHARYNX: no exudate, no erythema, lips, buccal mucosa, and tongue normal and mucous membranes are moist NECK: supple, no nuchal rigidity, no adenopathy, non-tender LUNGS: Diminished bilaterally. Normal chest wall mechanics HEART: Tacky, S1 normal and S2 normal ABDOMEN: abdomen soft, non-tender, normo-active bowel sounds, no masses, no rebound or guarding. BACK: Back is symmetrical on inspection and there is no deformity, no midline tenderness, no CVA tenderness. SKIN: no rashes and no bruising UPPER EXTREMITIES: Swelling of the right upper extremity with pitting edema. Purple discolored digits. Hand is slightly cooler. Radial pulse difficult to find but appear to be faint. LOWER EXTREMITIES: No pitting edema. NEURO EXAM: Normal sensorium, cranial nerves II-XII grossly intact, normal speech MEDICAL DECISION MAKING: Patient is a 8-year-old female who Zentz the ER for right arm and chest pain. This has been present for quite some time but got worse today after having her lung tapped. Labs show mild leukocytosis of 10,000 no significant anemia. P the with hyperkalemia 5.3 and acidosis with a CO2 of 18. Creatinine elevated at 2.3. LFTs bili and troponin were negative. Lipase was normal. Covid negative. Patient was given multiple doses of narcotics. She was updated bedside. And admitted for further work-up. Unable to perform CT angio due to creatinine. Triage Nursing notes reviewed. Limited review of prior medical records performed Vital Signs: reviewed and remarkable for no significant abnormalities Differential diagnosis: Differential diagnoses includes but is not limited to acute coronary syndrome, myocardial infarction, pericarditis, pulmonary embolus, aortic dissection, pneumonia, pneumothorax, musculoskeletal, shingles, esophageal. ER treatment provided: See below Diagnostics interpreted by me: ECG: Sinus rhythm rate of 107 Left axis No PVCs QTC 483 Cardiac Monitoring: An order was placed for continuous cardiac monitoring. The monitor shows a rate of 89 with sinus rhythm. Laboratory studies: As stated above and show below. Imaging studies: Venous Doppler was negative Arterial ultrasound pending Consultation(s): Discussed with Dr. Andrea Veronica for admission Procedures: none Critical Care: None Past Med/Surg History Medical History (Updated 07/02/21 @ 02:24 by Elfego Lee DO) Breast cancer (07/30/14) "s/p mastectomy of right breast and radiation in 2013" CKD (chronic kidney disease), stage III DM type 1 (diabetes mellitus, type 1) Fibromyalgia Hypothyroidism Malignant pleural effusion Osteoporosis Vitamin D deficiency Surgical History H/O section (01/04/13) H/O umbilical hernia repair S/P cataract surgery S/P laparoscopic cholecystectomy S/P mastectomy "right breast" Family History Father COPD (chronic obstructive pulmonary disease) CHF (congestive heart failure) Mother Rheumatoid arthritis Son Type 1 diabetes mellitus Social History Smoking Status: Never smoker Second Hand Exposure: Yes (dad many tears ago.); Hx Alcohol Use: No Hx Substance Use: No Preferred Language: Bermudian Communication Ability: Effective Engineering Mechanic Required: No Beliefs That Will Affect Care: None marital status: Current Living Situation: Spouse How many Children do You have: 6 Feels Safe at Home: Yes Assistive Devices: Wheelchair Allergies Allergies Allergy/AdvReac Type Severity Reaction Status Date / Time Sulfa (Sulfonamide Allergy Verified 07/01/21 23:16 Antibiotics) Home Meds Home Medications Medication Instructions Recorded Confirmed insulin lispro 100 unit/mL 1 sliding scale dose CONTINUOUS 09/15/15 07/01/21 subcutaneous cartridge (Humalog SUBCUTANEOUS INFUSION UD #0 dose U-100 Insulin) folic acid 1 mg tablet 1 mg PO QAM #0 tab 08/04/16 07/01/21 levothyroxine 100 mcg tablet 100 mcg PO QAM 90 Days #90 tab 11/04/19 07/01/21 ondansetron HCl 8 mg tablet 8 mg PO DAILY PRN 06/12/21 07/01/21 anastrozole 1 mg tablet 1 mg PO DAILY 06/30/21 07/01/21 fentanyl 12 mcg/hr transdermal 1 patch TRANSDERMAL Q72H 06/30/21 07/01/21 patch prednisone 10 mg tablet 10 mg PO DAILY 06/30/21 07/01/21 cholecalciferol (vitamin D3) 125 125 mcg PO DAILY 07/01/21 07/01/21 mcg (5,000 unit) tablet docusate sodium 100 mg capsule 100 mg PO BID 07/01/21 07/01/21 (Colace) Previous Rx's Medication Instructions Recorded tramadol 50 mg tablet 50 mg PO Q6H PRN #60 tab 06/10/21 Results & Data (ED) Vital Signs Vital Signs - 24 hr 07/01/21 21:49 07/01/21 22:02 07/01/21 22:10 Temperature Temperature Source Pulse Rate 91 H 85 171 H Pulse Rate from SpO2 Sensor 92 H 85 85 Respiratory Rate 24 17 19 Respiratory Effort / Characteristics Respiratory Depth Blood Pressure 71/54 L Blood Pressure Mean 59 Pulse Oximetry 97 97 95 Oxygen Delivery Method Oxygen Flow Rate Sepsis Recent Fever Within 48 Hours Sepsis New/Unexplained Change in Mental Status Sepsis Action Taken by Nursing 07/01/21 22:18 07/01/21 22:20 07/01/21 22:28 Temperature 36.5 C Temperature Source Oral Pulse Rate 150 H 177 H 172 H Pulse Rate from SpO2 Sensor 87 Respiratory Rate 20 23 20 Respiratory Effort / Characteristics Non-Labored Spontaneous Respiratory Depth Normal Blood Pressure 73/55 L Blood Pressure Mean 61 Pulse Oximetry 98 95 98 Oxygen Delivery Method Room Air Room Air Oxygen Flow Rate 2 Sepsis Recent Fever Within 48 Hours No Sepsis New/Unexplained Change in Mental Status No Sepsis Action Taken by Nursing No Action Required 07/01/21 22:29 07/01/21 22:30 07/01/21 23:00 Temperature Temperature Source Pulse Rate 168 H 180 H Pulse Rate from SpO2 Sensor 88 90 Respiratory Rate 18 16 Respiratory Effort / Characteristics Respiratory Depth Blood Pressure 100/55 L 105/63 Blood Pressure Mean 70 77 Pulse Oximetry 98 99 93 Oxygen Delivery Method Room Air Oxygen Flow Rate Sepsis Recent Fever Within 48 Hours Sepsis New/Unexplained Change in Mental Status Sepsis Action Taken by Nursing 07/01/21 23:53 07/02/21 00:02 07/02/21 00:30 Temperature Temperature Source Pulse Rate 93 H 138 H 186 H Pulse Rate from SpO2 Sensor 94 H 92 H 93 H Respiratory Rate 18 17 24 Respiratory Effort / Characteristics Respiratory Depth Blood Pressure 92/63 L 109/58 L 92/58 L Blood Pressure Mean 72 75 69 Pulse Oximetry 91 93 94 Oxygen Delivery Method Room Air Room Air Oxygen Flow Rate Sepsis Recent Fever Within 48 Hours Sepsis New/Unexplained Change in Mental Status Sepsis Action Taken by Nursing 07/02/21 01:01 Temperature Temperature Source Pulse Rate 184 H Pulse Rate from SpO2 Sensor 92 H Respiratory Rate 14 Respiratory Effort / Characteristics Respiratory Depth Blood Pressure 114/76 Blood Pressure Mean 88 Pulse Oximetry 95 Oxygen Delivery Method Room Air Oxygen Flow Rate Sepsis Recent Fever Within 48 Hours Sepsis New/Unexplained Change in Mental Status Sepsis Action Taken by Nursing Laboratory Data Result diagrams: 07/01/21 21:48 07/01/21 21:48 Lab Results 07/01/21 07/01/21 07/01/21 Range/Units 21:48 21:48 21:48 WBC 15.20 H (4.8-10.8) K/uL RBC 5.30 (4.2-5.4) M/uL Hgb 15.5 (12.0-16.0) g/dL Hct 47.2 H (37-47) % MCV 89.1 (80-100) fL MCH 29.2 (25-34) pg MCHC 32.8 (32-36) g/dL RDW Std Deviation 43.1 (36.4-46.3) fL RDW Coeff of Maycol 13.2 (11.5-14.5) % Plt Count 543 H (130-400) K/uL MPV 10.6 H (7.4-10.4) fL Immature Gran % (Auto) 0.3 % Neut % (Auto) 87.0 % Lymph % (Auto) 5.7 % White % (Auto) 6.8 % Eos % (Auto) 0.1 % Baso % (Auto) 0.1 % Neut # (Auto) 13.23 H (1.4-6.5) K/uL Lymph # (Auto) 0.87 L (1.2-3.4) K/uL White # (Auto) 1.03 H (0.11-0.59) K/uL Eos # (Auto) 0.01 (0-0.5) K/uL Baso # (Auto) 0.01 (0-0.2) K/uL Immature Gran # (Auto) 0.05 H (0.00-0.02) K/uL APTT 27.5 (21.0-31.0) Seconds PTT Ratio 1.0 Sodium 131 L (136-145) mmol/L Potassium 5.3 H (3.5-5.1) mmol/L Chloride 97 L (98-107) mmol/L Carbon Dioxide 18 L (21-32) mmol/L Anion Gap 16.0 H (3-11) BUN 39 H (7-18) mg/dl Creatinine 2.13 H (0.6-1.2) mg/dl Est Cr Clr Drug Dosing Not Reportable Est GFR ( Amer) 25.8 ml/min Est GFR (Non-Af Amer) 22.2 ml/min BUN/Creatinine Ratio 18.3 (10-20) Glucose 237 H (70-99) mg/dl Calcium 7.9 L (8.5-10.1) mg/dl Total Bilirubin 0.8 (0.2-1) mg/dl AST 35 (15-37) U/L ALT 20 (12-78) U/L Alkaline Phosphatase 123 H (45-117) U/L Total Creatine Kinase 35 (26-192) U/L Troponin I < 0.015 (0-0.045) ng/ml Total Protein 5.8 L (6.4-8.2) gm/dl Albumin 2.3 L (3.4-5.0) gm/dl Globulin 3.5 (2.5-4.0) gm/dl Albumin/Globulin Ratio 0.7 L (0.9-2) Lipase 34 L (73-393) U/L COVID-19 Eval Order SARS-CoV-2 (PCR) (Negative) 07/01/21 07/01/21 Range/Units 22:56 22:56 WBC (4.8-10.8) K/uL RBC (4.2-5.4) M/uL Hgb (12.0-16.0) g/dL Hct (37-47) % MCV (80-100) fL MCH (25-34) pg MCHC (32-36) g/dL RDW Std Deviation (36.4-46.3) fL RDW Coeff of Maycol (11.5-14.5) % Plt Count (130-400) K/uL MPV (7.4-10.4) fL Immature Gran % (Auto) % Neut % (Auto) % Lymph % (Auto) % White % (Auto) % Eos % (Auto) % Baso % (Auto) % Neut # (Auto) (1.4-6.5) K/uL Lymph # (Auto) (1.2-3.4) K/uL White # (Auto) (0.11-0.59) K/uL Eos # (Auto) (0-0.5) K/uL Baso # (Auto) (0-0.2) K/uL Immature Gran # (Auto) (0.00-0.02) K/uL APTT (21.0-31.0) Seconds PTT Ratio Sodium (136-145) mmol/L Potassium (3.5-5.1) mmol/L Chloride (98-107) mmol/L Carbon Dioxide (21-32) mmol/L Anion Gap (3-11) BUN (7-18) mg/dl Creatinine (0.6-1.2) mg/dl Est Cr Clr Drug Dosing Est GFR ( Amer) ml/min Est GFR (Non-Af Amer) ml/min BUN/Creatinine Ratio (10-20) Glucose (70-99) mg/dl Calcium (8.5-10.1) mg/dl Total Bilirubin (0.2-1) mg/dl AST (15-37) U/L ALT (12-78) U/L Alkaline Phosphatase (45-117) U/L Total Creatine Kinase (26-192) U/L Troponin I (0-0.045) ng/ml Total Protein (6.4-8.2) gm/dl Albumin (3.4-5.0) gm/dl Globulin (2.5-4.0) gm/dl Albumin/Globulin Ratio (0.9-2) Lipase (73-393) U/L COVID-19 Eval Order Covid19 at [facility] SARS-CoV-2 (PCR) NEGATIVE (Negative) Administered Medications Discontinued Medications Fentanyl Citrate (Fentanyl Citrate 100 Mcg/2 Ml Vial) 50 mcg IV NOW STA Stop: 07/01/21 22:37 Last Admin: 07/01/21 23:56 Dose: 50 mcg Documented by: [id number] Sodium Chloride (Nss 1000ml) 500 mls @ 999 mls/hr IV .Q31M ONE Stop: 07/01/21 22:18 Last Infusion: 07/01/21 23:56 Dose: 0 mls/hr Documented by: [id number] Admin: 07/01/21 23:00 Dose: 999 mls/hr Documented by: [id number] Sodium Chloride (Nss 1000ml) 1,000 mls @ 999 mls/hr IV .Q1H1M ONE Stop: 07/01/21 22:51 Last Infusion: 07/01/21 22:59 Dose: 0 mls/hr Documented by: [id number] Admin: 07/01/21 22:05 Dose: 999 mls/hr Documented by: [id number] Morphine Sulfate (Morphine Sulfate 10 Mg/Ml Carp/Vial) 6 mg IV NOW STA Stop: 07/01/21 21:47 Last Admin: 07/01/21 21:56 Dose: 6 mg Documented by: [id number] Ondansetron HCl (Ondansetron Inj 2 Mg/Ml 2 Ml Vial) 4 mg IV NOW STA Stop: 07/01/21 21:47 Last Admin: 07/01/21 21:55 Dose: 4 mg Documented by: [id number] Discharge Plan Visit Data Chief Complaint: Chest Pain Stated Complaint: CHEST PAIN ED Provider: Elfego Lee Discharge Problem: Chest pain, Arm pain, RAJ (acute kidney injury), Leukocytosis, Metabolic acidosis Forms Stand Alone Forms: My [facility] Prescriptions Prescriptions: No Action Humalog U-100 Insulin 100 unit/mL Cartridge 1 sliding scale dose continuous subcutaneous infusion UD Qty: 0 RF: 0 folic acid 1 mg Tablet 1 mg PO QAM Qty: 0 RF: 0 levothyroxine 100 mcg tablet 100 mcg PO QAM 90 Days Qty: 90 RF: 3 prednisone 10 mg tablet 10 mg PO DAILY RF: 0 anastrozole 1 mg tablet 1 mg PO DAILY RF: 0 fentanyl 12 mcg/hr patch 72 hour 1 patch transdermal Q72H RF: 0 tramadol 50 mg Tablet 50 mg PO Q6H PRN (Reason: Moderate or severe pain) Qty: 60 RF: 0 ondansetron HCl 8 mg tablet 8 mg PO DAILY PRN (Reason: Nausea) RF: 0 cholecalciferol (vitamin D3) 125 mcg (5,000 unit) Tablet 125 mcg PO DAILY RF: 0 docusate sodium [Colace] 100 mg Capsule 100 mg PO BID RF: 0 Referrals Referrals: Omar Virgen MD [Primary Care Provider] - Discharge Problem: Chest pain Qualifiers: Chest pain type: unspecified Qualified Code(s): R07.9 - Chest pain, unspecified Arm pain Qualifiers: Laterality: right Qualified Code(s): M79.601 - Pain in right arm Leukocytosis Qualifiers: Leukocytosis type: unspecified Qualified Code(s): D72.829 - Elevated white blood cell count, unspecified
[2021-07-01 21:59] LABS: Basophils # (auto) 0.01 K/uL (0-0.2); Basophils % (auto) 0.1 %; Eosinophils # (auto) 0.01 K/uL (0-0.5); Eosinophils % (auto) 0.1 %; Hematocrit (blood only) 47.2 % (37-47); Hemoglobin 15.5 g/dL (12.0-16.0); Immature Granulocytes # (auto) 0.05 K/uL (0.00-0.02); Immature Granulocytes % (auto) 0.3 %; Lymphocytes # (auto) 0.87 K/uL (1.2-3.4); Lymphocytes % (auto) 5.7 %; Mean Corpuscular Hemoglobin 29.2 pg (25-34); Mean Corpuscular Hgb Conc 32.8 g/dL (32-36); Mean Corpuscular Volume 89.1 fL (80-100); Mean Platelet Volume 10.6 fL (7.4-10.4); Monocytes # (auto) 1.03 K/uL (0.11-0.59); Monocytes % (auto) 6.8 %; Neutrophils # (auto) 13.23 K/uL (1.4-6.5); Platelet Count 543 K/uL (130-400); RDW Coefficient of Variation 13.2 % (11.5-14.5); RDW Standard Deviation 43.1 fL (36.4-46.3)
[2021-07-01 22:10] LABS: Partial Thromboplastin Time 27.5 Seconds (21.0-31.0)
[2021-07-01 22:15] LABS: Alanine Aminotransferase 20 U/L (12-78); Albumin Level 2.3 gm/dl (3.4-5.0); Aspartate Aminotransferase 35 U/L (15-37); BUN Creatinine Ratio 18.3 (10-20); Blood Urea Nitrogen 39 mg/dl (7-18); Calcium 7.9 mg/dl (8.5-10.1); Carbon Dioxide 18 mmol/L (21-32); Chloride 97 mmol/L (98-107); Est GFR (African American) 25.8 ml/min; Est GFR (Non-African American) 22.2 ml/min; Glucose 237 mg/dl (70-99); Lipase 34 U/L (73-393); Potassium 5.3 mmol/L (3.5-5.1); Sodium 131 mmol/L (136-145)
[2021-07-01 22:20] LABS: Albumin Globulin Ratio 0.7 (0.9-2); Alkaline Phosphatase 123 U/L (45-117); Bilirubin,Total 0.8 mg/dl (0.2-1); Globulin 3.5 gm/dl (2.5-4.0); Total Protein 5.8 gm/dl (6.4-8.2); Troponin I < 0.015 ng/ml (0-0.045)
[2021-07-01] MEDS ORDERED: fentaNYL citrate 100 MCG/2 ML VIAL IV STA (22:36)
[2021-07-02] MEDS ORDERED: SODIUM BICARB 8.4% INJ 50 MEQ/50 ML SYR IV STA (01:14)
[2021-07-02 01:34] LABS: Creatine Kinase 35 U/L (26-192)
[2021-07-02] MEDS ORDERED: SODIUM CHLORIDE 0.9% 1000ML 1,000 ML IV STA (01:43)
--- NOTE | 2021-07-02 01:50 | History & Physical Report ---
Date of Service July 02, 2021 Assessment & Plan (1) Severe sepsis: Plan: SIRS plus ARF Immunocompromised patient, chronic steroid Rx the last 2 weeks to stimulate appetite Possible sources : HCAP RUE cellulitis, hx chronic lymphedema, hx recurrent breast cancer, right status post surgery and radiation with pleural, liver, and bone mets on Anastrazole Hypotension secondary to above ? Adrenal insufficiency Syncope likely secondary to hypotension Hyperkalemia, AG MA secondary to kidney dysfunction DM1 on insulin pump, suboptimal control as of recent hemoglobin A1c of 9.15 June 2021 Chronic pain on Fentanyl patch hypothyroidism, euthyroid as of recent TSH PCU IVF Baseline UA, monitor creatinine response to IVF CS, check lactic acid, Zosyn, Doxycycline for now Decadron if with recurrent hypotension for possible adrenal insufficiency Pharmacy glycemic control consult Palliative care consult to discuss goals of care given recurrent admissions since last month. DVT prophylaxis Heparin subcu DNR Patient requesting updates from providers. Mr. Sánchez Dwyer, contact #[phone]. Total critical care time was 45 minutes. Text document was generated using User[employer] voice recognition software. It may contain grammatical or spelling errors. Kindly contact undersigned for clarification of any documentation item in question. History of Present Illness Primary Care Provider: Omar Virgen MD History obtained from patient, family, and records. Medical history significant for DM1 on insulin pump, HTN, hypothyroidism, recurrent breast cancer, right status post surgery and radiation with pleural, liver, and bone mets, chronic RUE lymphedema, chronic pain on Fentanyl patch, daily prednisone Rx for appetite stimulation Recent confinement 2 weeks ago for DKA. Patient noted worsening of chronic RUE lymphedema swelling and pain the last few weeks. No fever, no chills. 2 days ago, patient underwent outpatient thoracentesis by [facility] skidder for recurrent malignant right pleural effusion. Pleurx catheter placement likely to be difficult given underlying lymphedema and skin thickening on the right chest wall. Hospice approach recommended. Home hospice appointment scheduled today at patient's residence as per patient/. Patient felt something pop on her right chest during procedure. Pleuritic right chest pain and shortness of breath worsening at home. Some cough symptoms. Achy right flank pain. Poor appetite as per patient. Witnessed syncopal event at home after patient tried to get out of bed. Patient denies headache. No weakness syncopal events. Initial SBP 70s upon arrival at the ER. MEDICAL HISTORY: As above. SURGERIES: She has had section, hernia repair, cataract surgery, cholecystectomy and mastectomy, right, breast biopsy. FAMILY HISTORY: DM, COPD, rheumatoid arthritis PERSONAL AND SOCIAL HISTORY: Nonsmoker. No chronic intake of alcoholic beverages. Retired [employer]. Allergies Allergy/AdvReac Type Severity Reaction Status Date / Time Sulfa (Sulfonamide Allergy Verified 07/01/21 23:16 Antibiotics) Home Medications Medication Instructions Recorded Confirmed Type insulin lispro 100 unit/mL 1 sliding scale dose CONTINUOUS 09/15/15 07/01/21 History subcutaneous cartridge (Humalog SUBCUTANEOUS INFUSION UD #0 dose U-100 Insulin) folic acid 1 mg tablet 1 mg PO QAM #0 tab 08/04/16 07/01/21 History levothyroxine 100 mcg tablet 100 mcg PO QAM 90 Days #90 tab 11/04/19 07/01/21 History tramadol 50 mg tablet 50 mg PO Q6H PRN #60 tab 06/10/21 07/01/21 Rx ondansetron HCl 8 mg tablet 8 mg PO DAILY PRN 06/12/21 07/01/21 History anastrozole 1 mg tablet 1 mg PO DAILY 06/30/21 07/01/21 History fentanyl 12 mcg/hr transdermal 1 patch TRANSDERMAL Q72H 06/30/21 07/01/21 History patch prednisone 10 mg tablet 10 mg PO DAILY 06/30/21 07/01/21 History cholecalciferol (vitamin D3) 125 125 mcg PO DAILY 07/01/21 07/01/21 History mcg (5,000 unit) tablet docusate sodium 100 mg capsule 100 mg PO BID 07/01/21 07/01/21 History (Colace) Past Med/Surg History Medical History (Updated 07/02/21 @ 03:03 by Gurdeep Hrady MD) Breast cancer (07/30/14) "s/p mastectomy of right breast and radiation in 2013" CKD (chronic kidney disease), stage III DM type 1 (diabetes mellitus, type 1) Fibromyalgia Hypothyroidism Malignant pleural effusion Osteoporosis Vitamin D deficiency Surgical History H/O section (01/04/13) H/O umbilical hernia repair S/P cataract surgery S/P laparoscopic cholecystectomy S/P mastectomy "right breast" Family History Father COPD (chronic obstructive pulmonary disease) CHF (congestive heart failure) Mother Rheumatoid arthritis Son Type 1 diabetes mellitus Social History Smoking Status: Never smoker Second Hand Exposure: Yes (dad many tears ago.); Hx Alcohol Use: No Hx Substance Use: No Preferred Language: Chinese Communication Ability: Effective 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 [employer] Required: No Beliefs That Will Affect Care: None marital status: Current Living Situation: Spouse How many Children do You have: 6 Feels Safe at Home: Yes Assistive Devices: Wheelchair Review of Systems Review of Systems: As per HPI, all 10 systems reviewed, all other ROS negative Physical Exam Physical Exam: GENERAL: uncomfortable, no respiratory distress SKIN: Normal color, warm HEENT: Nathalie palpebral conjunctivae, no ptosis, dry buccal mucosa NECK : Supple, no tenderness CHEST : Decreased breath sounds, right chest wall tenderness HEART : RRR, no obvious murmurs ABDOMEN: Some distention, right flank tenderness EXTREMITIES : RUE swelling with minimal tenderness, no other conspicuous deformities noted NEUROLOGIC : Coherent, no facial asymmetry, no other gross focality Results & Data Results & Data ([facility]) Vital Signs (Past 12 Hours) Vital Signs Temp Pulse Resp BP Pulse Ox 07/02/21 01:01 184 H 14 114/76 95 07/02/21 00:30 186 H 24 92/58 L 94 07/02/21 00:02 138 H 17 109/58 L 93 07/01/21 23:53 93 H 18 92/63 L 91 07/01/21 23:00 180 H 16 105/63 93 07/01/21 22:30 168 H 18 100/55 L 99 07/01/21 22:29 98 07/01/21 22:28 172 H 20 98 07/01/21 22:20 177 H 23 95 07/01/21 22:18 36.5 C 150 H 20 73/55 L 98 07/01/21 22:10 171 H 19 95 07/01/21 22:02 85 17 97 07/01/21 21:49 91 H 24 71/54 L 97 Laboratory Results Laboratory Results WBC 15.20 K/uL (4.8-10.8) H 07/01/21 21:48 RBC 5.30 M/uL (4.2-5.4) 07/01/21 21:48 Hgb 15.5 g/dL (12.0-16.0) 07/01/21 21:48 Hct 47.2 % (37-47) H 07/01/21 21:48 MCV 89.1 fL (80-100) 07/01/21 21:48 MCH 29.2 pg (25-34) 07/01/21 21:48 MCHC 32.8 g/dL (32-36) 07/01/21 21:48 RDW Std Deviation 43.1 fL (36.4-46.3) 07/01/21 21:48 RDW Coeff of Maycol 13.2 % (11.5-14.5) 07/01/21 21:48 Plt Count 543 K/uL (130-400) H 07/01/21 21:48 MPV 10.6 fL (7.4-10.4) H 07/01/21 21:48 Immature Gran % (Auto) 0.3 % 07/01/21 21:48 Neut % (Auto) 87.0 % 07/01/21 21:48 Lymph % (Auto) 5.7 % 07/01/21 21:48 Riley % (Auto) 6.8 % 07/01/21 21:48 Eos % (Auto) 0.1 % 07/01/21 21:48 Baso % (Auto) 0.1 % 07/01/21 21:48 Neut # (Auto) 13.23 K/uL (1.4-6.5) H 07/01/21 21:48 Lymph # (Auto) 0.87 K/uL (1.2-3.4) L 07/01/21 21:48 Riley # (Auto) 1.03 K/uL (0.11-0.59) H 07/01/21 21:48 Eos # (Auto) 0.01 K/uL (0-0.5) 07/01/21 21:48 Baso # (Auto) 0.01 K/uL (0-0.2) 07/01/21 21:48 Immature Gran # (Auto) 0.05 K/uL (0.00-0.02) H 07/01/21 21:48 APTT 27.5 Seconds (21.0-31.0) 07/01/21 21:48 PTT Ratio 1.0 07/01/21 21:48 Sodium 131 mmol/L (136-145) L 07/01/21 21:48 Potassium 5.3 mmol/L (3.5-5.1) H 07/01/21 21:48 Chloride 97 mmol/L (98-107) L 07/01/21 21:48 Carbon Dioxide 18 mmol/L (21-32) L 07/01/21 21:48 Anion Gap 16.0 (3-11) H 07/01/21 21:48 BUN 39 mg/dl (7-18) H 07/01/21 21:48 Creatinine 2.13 mg/dl (0.6-1.2) H 07/01/21 21:48 Est Cr Clr Drug Dosing Not Reportable 07/01/21 21:48 Est GFR ( Amer) 25.8 ml/min 07/01/21 21:48 Est GFR (Non-Af Amer) 22.2 ml/min 07/01/21 21:48 BUN/Creatinine Ratio 18.3 (10-20) 07/01/21 21:48 Glucose 237 mg/dl (70-99) H 07/01/21 21:48 Calcium 7.9 mg/dl (8.5-10.1) L 07/01/21 21:48 Total Bilirubin 0.8 mg/dl (0.2-1) 07/01/21 21:48 AST 35 U/L (15-37) 07/01/21 21:48 ALT 20 U/L (12-78) 07/01/21 21:48 Alkaline Phosphatase 123 U/L (45-117) H 07/01/21 21:48 Total Creatine Kinase 35 U/L (26-192) 07/01/21 21:48 Troponin I < 0.015 ng/ml (0-0.045) 07/01/21 21:48 Total Protein 5.8 gm/dl (6.4-8.2) L 07/01/21 21:48 Albumin 2.3 gm/dl (3.4-5.0) L 07/01/21 21:48 Globulin 3.5 gm/dl (2.5-4.0) 07/01/21 21:48 Albumin/Globulin Ratio 0.7 (0.9-2) L 07/01/21 21:48 Lipase 34 U/L (73-393) L 07/01/21 21:48 COVID-19 Eval Order Covid19 at [facility] 07/01/21 22:56 SARS-CoV-2 (PCR) NEGATIVE (Negative) 07/01/21 22:56 Diagnostic Findings CXR as per my interpretation: Atelectasis, pleural effusion right CT RUE initial read: Right humerus orthopedic hardware with beamhardening artifact. No acute fracture or malalignment. Diffuse right upper extremitysubcutaneous edema/fluid and dermal thickening which mayreflect cellulitis in the appropriate clinical setting. No discrete soft tissue abscesswithin limits of noncontrast technique. No soft tissue gas. Multiple old right rib fracture deformities. Patchyinfiltrates or edema in the visualized right lung with mild pleural effusion and basilar consolidation. CT abdomen pelvis initial read: Right lower lung infiltrate/consolidation which maybe pneumonia or aspiration with mild pleural effusion. Multiple hypodense liver metastases, as before. Calcified splenic granulomas. Atrophic kidneys. No renal or ureteral calculus. No hydronephrosis. Calcified abdominal aortawithout aneurysm. Cholecystectomy. No bowel obstruction. Unremarkable appendix. Moderate stool throughout the colon and rectum. Atrophic uterus. No ascites, abscess or free air. Multiple sclerotic lesions in the pelvis and sacrum, as before. Severe osteopenia. No acute osseous abnormality. US venous RUE initial read: No DVT Arterial Dopplers RUE initial read: No right upper extremityarterial occlusions. Peak velocityin the subclavian arteryis 152 cm/swith monophasic flow. Peak velocityin the axillaryarteryis 91 cm/swith multiphasic flow. Peak velocityin the brachial arteryis 107 cm/swith multiphasic flow. Peak velocityin the radial ulnar is 21 cm/swith monophasic flow. Peak velocityin the ulnar arteryis 25 cm/swith monophasic flow. No significant stenosis identified; however, presence of monophasic flowin the subclavian, radial and ulnar arteries suggest underlying vascular disease with at least 50%stenosis. EKG as per my interpretation: Rate 110, sinus tachycardia, LAD, LAFB, T wave abnormalities septal leads
[2021-07-02] MEDS ORDERED: DOXYCYCLINE HYCLATE 100 MG in DEXTROSE 5% 100 ML IV STA (02:00)
[2021-07-02] MEDS ORDERED: PHARMACY GLYCEMIC MGMT CONSULT PRN (02:04)
[2021-07-02] MEDS: LIDOCAINE 5% 1 PATCH TD SCH (02:25)
[2021-07-02 03:07] LABS: Basophils # (auto) 0.01 K/uL (0-0.2); Basophils % (auto) 0.1 %; Hematocrit (blood only) 44.8 % (37-47); Hemoglobin 14.7 g/dL (12.0-16.0); Immature Granulocytes # (auto) 0.05 K/uL (0.00-0.02); Immature Granulocytes % (auto) 0.3 %; Lymphocytes # (auto) 1.27 K/uL (1.2-3.4); Lymphocytes % (auto) 6.7 %; Mean Corpuscular Hemoglobin 29.4 pg (25-34); Mean Corpuscular Hgb Conc 32.8 g/dL (32-36); Mean Corpuscular Volume 89.6 fL (80-100); Mean Platelet Volume 10.5 fL (7.4-10.4); Monocytes # (auto) 0.47 K/uL (0.11-0.59); Monocytes % (auto) 2.5 %; Neutrophils # (auto) 17.27 K/uL (1.4-6.5); Neutrophils % (auto) 90.4 %; Platelet Count 493 K/uL (130-400); RDW Coefficient of Variation 13.4 % (11.5-14.5); RDW Standard Deviation 43.6 fL (36.4-46.3); White Blood Count 19.07 K/uL (4.8-10.8)
[2021-07-02 03:13] LABS: Base Excess VBG -5.6 mEq/L; HCO3 VBG 21 mmol/L; PCO2 VBG 47 mmHg (38-50); PO2 VBG 32 mmHg; pH VBG 7.28 (7.36-7.41)
[2021-07-02 03:21] LABS: Oxygen Saturation VBG < 60.0 %
[2021-07-02 03:23] LABS: BUN Creatinine Ratio 16.9 (10-20); Calcium 7.5 mg/dl (8.5-10.1); Creatinine Clr Calc Pharmacy 19.4 ml/min; Est GFR (African American) 22.1 ml/min; Est GFR (Non-African American) 19.1 ml/min; Magnesium 1.8 mg/dl (1.8-2.4); Potassium 4.8 mmol/L (3.5-5.1)
[2021-07-02] MEDS ORDERED: PIPERACILL/TAZOBAC CONSULT ACTIVE PRN (03:27)
[2021-07-02] MEDS: fentaNYL citrate 100 MCG/2 ML VIAL IV SCH ×2 (03:28→08:10)
[2021-07-02] MEDS ORDERED: PIPERACILLIN/TAZOBACTAM 4.5 GM/120 ML BAG IV STA (03:33)
[2021-07-02] MEDS ORDERED: MAGNESIUM SULFATE / D5W 1 GM/100 ML BAG IV STA (04:06)
[2021-07-02] MEDS ORDERED: PROMETHAZINE HCL 12.5 MG in SODIUM CHLORIDE 0.9% 50 ML IV PRN (04:28)
[2021-07-02] MEDS ORDERED: traMADol HCL 50 MG TABLET PO PRN (04:28)
[2021-07-02] MEDS ORDERED: ACETAMINOPHEN 325 MG TAB PO PRN (04:28)
[2021-07-02] MEDS ORDERED: HYDROmorphone INJ 0.5 MG/0.5 ML SYR IV PRN ×2 (04:28→12:59)
[2021-07-02] MEDS ORDERED: oxyCODONE HCL IR 5 MG TAB (IMMEDIATE RELEASE) PO PRN (04:28)
[2021-07-02] MEDS ORDERED: SODIUM CHLORIDE 0.9% 1000ML 1,000 ML IV ONE ×4 (04:30→19:04)
[2021-07-02] MEDS ORDERED: GLUCOSE 10 TABS/TUBE PO PRN (04:45)
[2021-07-02] MEDS ORDERED: CARBOHYDRATES FOR HYPOGLYCEMIA PO PRN (04:45)
[2021-07-02] MEDS ORDERED: DEXTROSE 50% 50 ML SYRINGE IV PRN (04:45)
[2021-07-02] MEDS ORDERED: GLUCOSE 40% GEL 15 GM TUBE PO PRN (04:45)
[2021-07-02] MEDS ORDERED: GLUCAGON FOR INJ 1 MG VIAL SQ PRN (04:45)
[2021-07-02] MEDS: SODIUM CHLORIDE 0.9% 1000ML 1,000 ML IV SCH ×3 (06:11→22:28)
[2021-07-02] MEDS: INSULIN GLARGINE SOLOSTAR 100 UNITS/ML 3 ML PEN SC SCH ×2 (06:13→08:02)
[2021-07-02] MEDS: INSULIN ASPART 100 UNITS/ML 3 ML PEN SC SCH ×5 (06:16→20:48)
[2021-07-02 06:45] LABS: Appearance Urine Clear (Clear); Blood Urine Negative (Negative); Color Urine Dark Yellow; Glucose Urine UA Trace (Negative); Ketones Urine Trace (Negative); Leukocyte Esterase Urine Negative (Negative); Nitrite Urine Negative (Negative); Protein Urine Negative (Negative); Urobilinogen Urine Negative (Negative)
--- NOTE | 2021-07-02 06:49 | Ultrasound Report ---
RIGHT UPPER EXTREMITY ARTERIAL DOPPLER ULTRASOUND CLINICAL HISTORY: Right arm discoloration. COMPARISON STUDY: No previous studies for comparison. TECHNIQUE: Grayscale, color and duplex. Sonography of the arterial system of the right upper extremit y was performed. FINDINGS: Evaluation is compromised given suboptimal visualization due to upper extremity edema. No o cclusion within the right upper extremity is noted. No elevated velocities were identified. Monophasi c flow within the right subclavian artery is noted. The peak systolic velocity is 152 cm/s. There is biphasic flow within the right axillary artery. There is biphasic and triphasic flow within the right brachial artery. Biphasic flow within the right radial and ulnar arteries is noted. IMPRESSION: 1. No arterial occlusion identified within the right upper extremity. No elevated velocities. 2. Monophasic flow within the right radial and ulnar arteries. An underlying stenosis of approximatel y 50% may be present. No evidence for high-grade stenosis. ACT 112: Negative or not required by law. Electronically signed by: Florentin Ware M.D. 07/02/2021 6:48 AM
[2021-07-02 06:57] LABS: Bilirubin Urine 1+ (Negative)
--- NOTE | 2021-07-02 07:38 | XRay Report ---
XR chest 1V portable CLINICAL HISTORY: Chest Pain COMPARISON STUDY: July 01, 2021 FINDINGS: No pneumothorax. Mild interval improvement/redistribution of the right pleural effusion. Right infrahilar opacity is slightly worsened since prior. There is also hazy opacity at the peripher al aspect of the right lung, appear slightly more conspicuous since prior. Cardiomediastinal silhouette is within normal limits in size. No significant pulmonary vascular congestion.. Aorta is calcified. Osseous structures: Osteopenia. Degenerative changes of the spine. Orthopedic hardware within right humerus is again noted. IMPRESSION: 1. Mild interval improvement/redistribution of the right pleural effusion however there is hazy opac ity at the right lung which could represent layering pleural fluid versus worsening of pulmonary pare nchymal process. 2. Atherosclerosis. 3. The rest of findings as above. ACT 112: Negative or not required by law. The above report was generated using voice recognition software. It may contain grammatical, syntax o r spelling errors. Electronically signed by: Neha Cagle DO 07/02/2021 7:37 AM
[2021-07-02] MEDS: FOLIC ACID 1 MG TAB PO SCH (08:02)
[2021-07-02] MEDS: LEVOTHYROXINE SODIUM 100 MCG TABLET PO SCH (08:02)
[2021-07-02] MEDS: ANASTROZOLE 1 MG TAB PO SCH (08:02)
[2021-07-02] MEDS: CHECK fentaNYL PATCH PLACEMENT SCH ×2 (08:02→16:51)
[2021-07-02] MEDS: predniSONE 10 MG TABLET PO SCH (08:02)
[2021-07-02] MEDS: DOCUSATE SODIUM 100 MG CAP PO SCH ×2 (08:03→20:47)
--- NOTE | 2021-07-02 08:07 | Ultrasound Report ---
US venous doppler UE RT CLINICAL HISTORY: rue swelling COMPARISON STUDY: May 27, 2021 FINDINGS: No intraluminal thrombus was visualized. The right internal jugular, subclavian, axillary, cephalic, brachial, basilic, radial, and ulnar veins were patent. Soft tissue edema is again seen. IMPRESSION: No evidence of deep venous thrombosis within the right upper extremity.. ACT 112: Negative or not required by law. The above report was generated using voice recognition software. It may contain grammatical, syntax o r spelling errors. Electronically signed by: Neha Cagle DO 07/02/2021 8:06 AM
[2021-07-02] MEDS: HEPARIN SOD 5,000 UNIT/0.5 ML VIAL SQ SCH ×3 (08:08→20:47)
--- NOTE | 2021-07-02 08:16 | CT Scan Report ---
CT humerus RT wo con HISTORY: 75 years-old Female RUE swelling ro abscess acute pain and swelling of the right upper extr emity with limited range of motion COMPARISON: Chest radiograph of same day, radiographs of the right humerus 06/07/2021. TECHNIQUE: Multiple axial CT images of the right humerus were obtained without the use of IV contrast . A dose lowering technique was used consistent with the principals of ALARA. FINDINGS: Healed chronic mid diaphyseal fracture deformity of the right humerus with intact plate and screw fus ion hardware. No evidence of hardware fracture or loosening. One of the fixation screws within the po sterior aspect of the greater tuberosity extends through the posterior cortex on image 57 series 5. T here is moderate glenohumeral with mild AC joint osteoarthritis. 6 mm corticated ossification adjacen t to the coracoid process on image 65 series 6 is likely extra-articular. 1 tendons and ligaments are not well evaluated by MRI technique. There is diffuse subcutaneous and de ep tissue edema of the chest wall and upper extremity. Small joint effusion suspected. No fluid colle ction. Subacute to chronic nondisplaced right-sided rib fractures. Layering right pleural effusion with grou ndglass opacities throughout the right lung. No acute fracture, dislocation or osseous erosion identi fied. IMPRESSION: 1. Healed chronic fracture deformity of the mid diaphyseal right humerus with intact plate and screw fusion hardware. 2. No acute fracture or dislocation. 3. Diffuse subcutaneous and deep tissue edema of the chest wall and imaged right upper extremity. No discrete fluid collection. 4. Subacute to chronic nondisplaced lateral right-sided rib fractures. 5. Layering right pleural effusion with groundglass densities throughout the right lung. ACT 112: Negative or not required by law. The above report was generated using voice recognition software. It may contain grammatical, syntax o r spelling errors. Electronically signed by: Michael Medina M.D. 07/02/2021 8:15 AM
--- NOTE | 2021-07-02 08:36 | CT Scan Report ---
ABDOMEN AND PELVIS CT WITHOUT CONTRAST HISTORY: Acute bilateral flank pain flank pain TECHNIQUE: Multiaxial CT images of the abdomen and pelvis were performed without contrast. A dose lo wering technique was utilized adhering to the principles of ALARA. COMPARISON STUDY: CT of the right humerus of same day, CT abdomen and pelvis 06/12/2021, 06/07/2021 FINDINGS: Layering right pleural effusion. Groundglass consolidative opacities of the right lung base with air bronchograms. These findings have progressively worsened from the 06/12/2021 exam. Trace left pleural e ffusion. Limited study secondary to upper extremity positioning the lack of contrast. Imaged inferior cardiac chambers are unremarkable. Subcentimeter nodular foci noted within the anterior epicardial t issues. Numerous scattered calcified fernández limit of the spleen. Atrophic pancreas. Multifocal hepatic metastat ic disease redemonstrated which generally appears stable from comparison. Cholecystectomy. Unremarkab le right adrenal gland. Ill-defined soft tissue nodules in the retroperitoneal space inferior to it a lso possibly involving the left inferior gland redemonstrated suggestive of metastatic disease. Soft tissue thickening is also noted inferior to the right ureter gland adjacent to the IVC. Unremarkable kidneys. There is no hydronephrosis. Urinary bladder wall thickening with partial disten tion. Atrophic uterus with vascular calcifications. No adnexal mass lesion. Atherosclerosis of the ao rta without aneurysm. Mild distal esophageal wall thickening. There is no bowel obstruction or bowel wall thickening. Mild fecal retention. Unremarkable appendix. Tiny fat filled periumbilical hernia. R ight mastectomy with chronic normal thickening of the right chest wall with ill-defined subcutaneous nodules. There is diffuse body wall edema with asymmetric subcutaneous edema of the right upper extre mity. Multifocal sclerotic metastatic disease. Subacute chronic appearing lateral right-sided rib fra ctures are unchanged. No acute fracture identified. IMPRESSION: 1. Small to moderate right pleural effusion with right basilar groundglass and consolidative opacitie s suggestive of pneumonia versus aspiration pneumonitis. 2. Multifocal hepatic metastatic disease redemonstrated along with sclerotic osseous metastasis. 3. Soft tissue thickening within the retroperitoneal space adjacent to the adrenal glands redemonstra chidi suggestive of probable metastasis. 4. No bowel obstruction or bowel wall thickening. 5. Right mastectomy with persistent soft tissue nodularity of the subcutaneous tissues of the right c hest wall suspicious for metastasis. 6. Additional findings as above. ACT 112: Negative or not required by law. The above report was generated using voice recognition software. It may contain grammatical, syntax o r spelling errors. Electronically signed by: Michael Medina M.D. 07/02/2021 8:35 AM
[2021-07-02 08:57] LABS: BUN Creatinine Ratio 19.1 (10-20); Calcium 7.4 mg/dl (8.5-10.1); Creatinine Clr Calc Pharmacy 19.1 ml/min; Est GFR (African American) 24.4 ml/min
--- NOTE | 2021-07-02 09:02 | Electrocardiogram Report ---
Test Reason : Blood Pressure : / mmHG Vent. Rate : 107 BPM Atrial Rate : 107 BPM P-R Int : 154 ms QRS Dur : 084 ms QT Int : 362 ms P-R-T Axes : 064 -36 071 degrees QTc Int : 483 ms Sinus tachycardia Left anterior fascicular block Low voltage QRS Abnormal ECG When compared with ECG of 12-JUN-2021 15:04, No significant change Confirmed by Juanpablo Mike ([id number]) on 07/02/2021 9:02:41 AM Referred By: REFERRED SELF Confirmed By:Juanpablo Mike
[2021-07-02 09:32] LABS: Potassium 4.9 mmol/L (3.5-5.1)
[2021-07-02 09:38] LABS: Beta-Hydroxybutyrate 28.33 mg/dl (0.2-2.81)
[2021-07-02] MEDS ORDERED: PIPERACILLIN/TAZOBACTAM 3.375 GM in DEXTROSE 5% 100 ML IV SCH (11:00)
--- NOTE | 2021-07-02 12:00 | Pharmacy Report ---
Pharmacy Glycemic Short Note 2 - Date of Service July 02, 2021 - Glycemic Short BSG Results (Last 24 hours): 07/01/21 07/02/21 07/02/21 21:48 02:51 02:56 Glucose 237 H 254 H POC Glucose 230 H 07/02/21 07/02/21 07/02/21 05:51 07:24 08:15 Glucose 306 H* POC Glucose 197 H 251 H 07/02/21 11:23 Glucose POC Glucose 268 H OUTPATIENT ANTIDIABETIC REGIMEN: * Humalog insulin pump * HbA1c: 10.7% (06/15/21) ASSESSMENT: * EN is a 75 year old female with T1DM, admitted last evening with severe sepsis secondary to unknown source * Insulin pump was removed overnight and patient was given Lantus dose (appears to have been several hours after pump was removed) * BSGs understandably elevated so far today * Patient was recently started on prednisone 10 mg PO daily to reportedly act as an appetite stimulant * To be continued inpatient, will tighten Novolog parameters in light of this * Plan at this point is for eventual discharge to home with Hospice * Will loosen BSG goal range PLAN FOR INPATIENT GLYCEMIC CONTROL: * Hold insulin pump * Basal insulin * Lantus 20 units SC daily * Bolus insulin * NovoLog per scale ACHS or Q6hrs while NPO * Goal Range: Low 120 mg/dL - High 160 mg/dL * Correction Factor: 30 mg/dL/unit * Nutritional / Prandial insulin per carb ratio of 1 unit per 10 grams CHO consumed PLAN FOR DISCHARGE: * Patient is to be discharged with Hospice - continuing insulin pump at discharge seems reasonable at this time
--- NOTE | 2021-07-02 12:29 | Palliative Care Consultation ---
Date of Consultation July 02, 2021 Assessment & Plan (1) Arm pain: It sounds like there is a neuropathic component to this and CT showed extensive edema in her shoulder. Lidocaine patches have been helpful. With level of pain and CKD, would favor oxycodone over tramadol. She and her are agreeable to this. She has noticed relief with fentanyl patch. Monitor oxycodone use and efficacy for titration of fentanyl patch. Laterality: right Qualified Code(s): M79.601 - Pain in right arm (2) Palliative care encounter: I talked with Meredith and also with her by phone. They are very much wanting to get her home. They are planning to have [facility] hospice care when she returns home. They are coping with her illness in the context of losing their son to cancer in October of this year. Meredith finds a lot of comfort in her kateryna and accepts that she is approaching her dying time. Her is very supportive and finds comfort in the relief of her suffering. Discussed plan with Dr. Lozoya. The hope would be to continue IV antibiotics and manage her blood sugars until blood culture results are available. If possible, convert to po antibiotic at that time so that she can be discharged to home. Discussed that case management can help facilitate with [facility] hospice to set up visit when Meredith is ready for discharge. (3) Metastatic cancer: Area of secondary neoplastic involvement: bone Qualified Code(s): C79.51 - Secondary malignant neoplasm of bone (4) RAJ (acute kidney injury): (5) Malignant pleural effusion: (6) DKA, type 1: (7) Lymphedema: History of Present Illness Reason for Consultation: goals of care Requesting Physician: Gurdeep Hardy Attending Physician: Fernando Lozoya MD History of Present Illness 75 yo lady with history of right breast cancer and chronic RUE lymphedema. She was recently found to have recurrent disease metastatic to lung, liver and bone. She has had a right pleural effusion with thoracentesis most recently three days ago. She met with Dr. Odom to discuss treatment options. However, after discussion with her , she feels that with Stage IV, incurable breast cancer, she would prefer to focus on being at home with her family rather than pursuing treatment. She had been planning to meet with hospice today for admission but last night had a syncopal episode and was brought to ER for evaluation. She has leukocytosis, elevated lactate, hypotension, RAJ, consistent with SIRS. Blood cultures are pending. She is awake and alert, complaining of aching, burning discomfort in her right arm. She was started on a 12mcg fentanyl patch about three weeks ago. She also has a lidocaine patch on her right upper chest. She had also been taking tramadol at home. She is also diabetic and has had been on prednisone for appetite stimulation. She had an admission earlier this month for DKA with acidosis on this admission also. Allergies Allergy/AdvReac Type Severity Reaction Status Date / Time Sulfa (Sulfonamide Allergy Verified 07/01/21 23:16 Antibiotics) Home Medications Medication Instructions Recorded Confirmed Type insulin lispro 100 unit/mL 1 sliding scale dose CONTINUOUS 09/15/15 07/01/21 History subcutaneous cartridge (Humalog SUBCUTANEOUS INFUSION UD #0 dose U-100 Insulin) folic acid 1 mg tablet 1 mg PO QAM #0 tab 08/04/16 07/01/21 History levothyroxine 100 mcg tablet 100 mcg PO QAM 90 Days #90 tab 11/04/19 07/01/21 History tramadol 50 mg tablet 50 mg PO Q6H PRN #60 tab 06/10/21 07/01/21 Rx ondansetron HCl 8 mg tablet 8 mg PO DAILY PRN 06/12/21 07/01/21 History anastrozole 1 mg tablet 1 mg PO DAILY 06/30/21 07/01/21 History fentanyl 12 mcg/hr transdermal 1 patch TRANSDERMAL Q72H 06/30/21 07/01/21 History patch prednisone 10 mg tablet 10 mg PO DAILY 06/30/21 07/01/21 History cholecalciferol (vitamin D3) 125 125 mcg PO DAILY 07/01/21 07/01/21 History mcg (5,000 unit) tablet docusate sodium 100 mg capsule 100 mg PO BID 07/01/21 07/01/21 History (Colace) Patient History Medical History Breast cancer (07/30/14) "s/p mastectomy of right breast and radiation in 2013" CKD (chronic kidney disease), stage III DM type 1 (diabetes mellitus, type 1) Fibromyalgia Hypothyroidism Malignant pleural effusion Osteoporosis Vitamin D deficiency Surgical History H/O section (01/04/13) H/O umbilical hernia repair S/P cataract surgery S/P laparoscopic cholecystectomy S/P mastectomy "right breast" Family History Father COPD (chronic obstructive pulmonary disease) CHF (congestive heart failure) Mother Rheumatoid arthritis Son Type 1 diabetes mellitus Social History Smoking Status: Never smoker Second Hand Exposure: Yes (dad many tears ago.); Hx Alcohol Use: No Hx Substance Use: No Preferred Language: Kinyarwanda Communication Ability: Effective Director On Air Required: No Beliefs That Will Affect Care: Holiness Holiness Beliefs: Restorationist marital status: Current Living Situation: Spouse How many Children do You have: 6 Feels Safe at Home: Yes Safety Concerns: Feels Safe At This Time Assistive Devices: Walker and Wheelchair Review of Systems Review of Systems: [place] Symptom Assessment Scale Pain 2/3 Dyspnea 1/3 Nausea 1/3 Anxiety 1/3 Fatigue 2/3 Drowsiness 0/3 Palliative Performance Score 40% Physical Exam Respiratory: normal respiratory effort; no labored breathing Cardiovascular: Rate/Rhythm: regular rate and regular rhythm Gastrointestinal (Abdomen): Inspection/Auscultation: abdomen not distended Musculoskeletal: RUE lymphedema Results & Data ([facility]) Vital Signs (Past 12 Hours) Vital Signs Temp Pulse Pulse Resp BP BP Pulse Ox 07/02/21 07:17 97.3 F L 83 16 80/51 L 97 07/02/21 04:48 96.8 F L 07/02/21 04:34 95 H 20 108/59 L 95 07/02/21 03:30 114/52 L 98 07/02/21 03:20 96 07/02/21 03:10 96 07/02/21 03:00 97 07/02/21 02:50 96 07/02/21 02:40 90 07/02/21 02:30 97 07/02/21 02:22 99 07/02/21 01:01 90 14 114/76 95 07/02/21 00:30 93 H 24 92/58 L 94 PG Care Time/CCT Total # of Minutes Spent Total Time Spent: 75 Total Time Spent with Patient: Total time spent is greater than 50% in coordination of care (as documented) at patient's floor/unit and/or counseling patient: symptom management, goals of care, support, coordination of care Coding Level of Care Code 80935 Initial Inpt Care Lvl 3 Diagnoses Arm pain M79.601 Laterality: right DKA, type 1 E10.10 Metastatic cancer C79.51 Area of secondary neoplastic involvement: bone RAJ (acute kidney injury) N17.9 Malignant pleural effusion J91.0 Lymphedema I89.0 Palliative care encounter Z51.5
[2021-07-02] MEDS: PIPERACILLIN/TAZOBACTAM 3.375 GM in DEXTROSE 5% 100 ML IV SCH (14:15)
[2021-07-02 20:28] LABS: BUN Creatinine Ratio 18.7 (10-20); Calcium 7.5 mg/dl (8.5-10.1); Creatinine Clr Calc Pharmacy 16.9 ml/min; Est GFR (Non-African American) 18.1 ml/min; Potassium 5.2 mmol/L (3.5-5.1)
[2021-07-02] MEDS ORDERED: DOXYCYCLINE HYCLATE 100 MG CAP PO SCH (21:00)
[2021-07-02] MEDS ORDERED: VANCOMYCIN CONSULT ACTIVE PRN ×2 (21:43)
[2021-07-02] MEDS ORDERED: VANCOMYCIN HCL 1,250 MG in SODIUM CHLORIDE 0.9% 250 ML IV ONE (22:15)
--- NOTE | 2021-07-02 22:40 | Hospitalist Progress Note ---
Date of Service July 02, 2021 Assessment & Plan (1) Severe sepsis: Plan: Present on admission with SOB, weakness, syncopal episode and low BP Immunocompromised patient, chronic steroid Rx the last 2 weeks to stimulate appetite Possible related to HCAP CXR showed Mild interval improvement/redistribution of the right pleural effusion however there is hazy opacity at the right lung which could represent layering pleural fluid versus worsening of pulmonary parenchymal process. Was starting on Zosyn and Doxycycline Blood cx pending will like to take patient home, but I explained to her that blood cx pending RUE swelling Possible related to cellulitis but need to r/o DVT Doppler of LE showed No evidence of deep venous thrombosis within the right upper extremity. Continue IV abx for now Hypotension Possible related to the acute illness BP improved DM type 1 Insulin pump on hold during the hospital course Pharmacy on board for glycemic management History of breast cancer. Right status post surgery and radiation with pleural, liver, and bone mets on Anastrazole Recent malignant effusion based on cytology. ontinue fentanyl patch, oxycodone, Lidocaine patch Palliative care on board Pt is scheduled to meet with hospice Plan to transition to hospice P does not want to stay in the hospital DVT prophylaxis Heparin subcu DNR Patient requesting updates from providers. Mr. Sánchez Dwyer, contact #[phone]. Total critical care time was 45 minutes. By CMS guidelines, a determination that the admission or continued stay is not medically necessary has been made by a member of the UR committee and a physician for this hospital stay, therefore a Code 44 will be completed and the Inpatient admission will be changed to outpatient. Admission and Anticipated Discharge Date Admission Date: July 02, 2021 Subjective Pt was seen and examined Lying in bed with no acute distress Pt said that she feels weak Denies any chest pain, palpitation, dizziness and SOB Review of Systems Review of Systems: All systems reviewed & are unremarkable except as noted in Subjective Physical Exam Physical Exam: GENERAL: uncomfortable, no respiratory distress SKIN: Normal color, warm HEENT: [place] palpebral conjunctivae, no ptosis, dry buccal mucosa NECK : Supple, no tenderness CHEST : Decreased breath sounds, right chest wall tenderness HEART : RRR, no obvious murmurs ABDOMEN: Some distention, right flank tenderness EXTREMITIES : RUE swelling with minimal tenderness, no other conspicuous deformities noted NEUROLOGIC : Coherent, no facial asymmetry, no other gross focality Results & Data Results & Data ([facility]) Vital Signs (Past 12 Hours) Vital Signs Temp Pulse Resp BP Pulse Ox 07/02/21 19:23 36.4 C L 86 18 95/59 L 100 07/02/21 16:59 36.2 C L 79 18 86/54 L 94 07/02/21 12:29 36.2 C L 81 20 92/62 L 94
[2021-07-03] MEDS: PIPERACILLIN/TAZOBACTAM 3.375 GM in DEXTROSE 5% 100 ML IV SCH (02:56)
[2021-07-03] MEDS: CHECK fentaNYL PATCH PLACEMENT SCH ×2 (02:58→09:06)
[2021-07-03] MEDS: LEVOTHYROXINE SODIUM 100 MCG TABLET PO SCH (05:18)
[2021-07-03] MEDS: HEPARIN SOD 5,000 UNIT/0.5 ML VIAL SQ SCH (05:18)
[2021-07-03 05:22] LABS: Est GFR (African American) 24.2 ml/min; Est GFR (Non-African American) 20.9 ml/min
[2021-07-03] MEDS: SODIUM CHLORIDE 0.9% 1000ML 1,000 ML IV SCH (06:46)
[2021-07-03] MEDS: INSULIN ASPART 100 UNITS/ML 3 ML PEN SC SCH (09:05)
[2021-07-03] MEDS: ANASTROZOLE 1 MG TAB PO SCH (09:07)
[2021-07-03] MEDS: predniSONE 10 MG TABLET PO SCH (09:07)
[2021-07-03] MEDS: LIDOCAINE 5% 1 PATCH TD SCH (09:07)
[2021-07-03] MEDS: DOCUSATE SODIUM 100 MG CAP PO SCH (09:07)
[2021-07-03] MEDS: FOLIC ACID 1 MG TAB PO SCH (09:07)
--- NOTE | 2021-07-03 09:12 | Pharmacy Report ---
Pharmacy Vanc AUC Short Note - Date of Service July 03, 2021 - Assessment & Plan Assessment 75 year old F receiving IV VANCOMYCIN + ZOSYN for treatment of SEPSIS, 1/2 BC = GPC. Repeat Blood cultures are pending. Pertinent PMH: Breast cancer w/ recent recurrent disease metastatic to lung, liver and bone. T1DM, CKD. WBC 16 --> 19 today Afebrile RAJ, SCr 2.24mg/dl Day # 2 of antimicrobial therapy. Plan Vancomycin * AUC/BRITTANI is the preferred PK/PD target for vancomycin * AUC guided dosing is effective and associated with decreased risk of nephrotoxicity compared to traditional trough targets * Vancomycin 1250mg (20mg/kg) IV x1 dose yesterday at 2216 then * Vancomycin 750mg (11.5mg/kg) IV q24h which is predicted to achieve target AUC/BRITTANI of 400-600 mg/L.hr * Trough level ordered for: 07/05/21 * Monitor renal function closely, RAJ on CKD Zosyn 3.375grams IV Q12H for CrCl < 20ml/min Pharmacy will continue to follow and will adjust dose/frequency as necessary. Thank you.
[2021-07-03 10:20] LABS: BUN Creatinine Ratio 19.5 (10-20); Calcium 7.3 mg/dl (8.5-10.1); Creatinine Clr Calc Pharmacy 18.8 ml/min; Est GFR (African American) 23.9 ml/min; Est GFR (Non-African American) 20.6 ml/min; Potassium 4.4 mmol/L (3.5-5.1)
[2021-07-03 10:28] LABS: Hemoglobin 13.3 g/dL (12.0-16.0); Mean Corpuscular Hemoglobin 28.8 pg (25-34); Mean Corpuscular Hgb Conc 32.4 g/dL (32-36); Mean Corpuscular Volume 88.7 fL (80-100); Mean Platelet Volume 11.2 fL (7.4-10.4); Platelet Count 487 K/uL (130-400); RDW Coefficient of Variation 13.1 % (11.5-14.5); RDW Standard Deviation 42.4 fL (36.4-46.3); Red Blood Count 4.62 M/uL (4.2-5.4); White Blood Count 15.93 K/uL (4.8-10.8)
[2021-07-03] MEDS ORDERED: VANCOMYCIN HCL 750 MG in SODIUM CHLORIDE 0.9% 250 ML IV SCH (16:00)
--- NOTE | 2021-07-04 13:53 | Communication Note ---
Date of Service: July 04, 2021 By CMS guidelines, a determination that the admission or continued stay is not medically necessary has been made by a member of the Utilization Review committee and a physician for this hospital stay. She went home with Hospice care. Therefore, a Code 44 will be completed and the inpatient admission will be changed to outpatient. Vandana Rose DO [employer]
[2021-07-04] MEDS ORDERED: fentaNYL 12 MCG/HR TDSY TD SCH (18:00)
[2021-07-05] MEDS ORDERED: VANCOMYCIN TROUGH ONE (15:30)
--- NOTE | 2021-07-14 09:11 | Discharge Summary ---
Date of Service July 03, 2021 Admission HPI Per Admitting Provider History obtained from patient, family, and records. Medical history significant for DM1 on insulin pump, HTN, hypothyroidism, recurrent breast cancer, right status post surgery and radiation with pleural, liver, and bone mets, chronic RUE lymphedema, chronic pain on Fentanyl patch, daily prednisone Rx for appetite stimulation Recent confinement 2 weeks ago for DKA. Patient noted worsening of chronic RUE lymphedema swelling and pain the last few weeks. No fever, no chills. 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 Pleurx catheter placement likely to be difficult given underlying lymphedema and skin thickening on the right chest wall. Hospice approach recommended. Home hospice appointment scheduled today at patient's residence as per patient/. Patient felt something pop on her right chest during procedure. Pleuritic right chest pain and shortness of breath worsening at home. Some cough symptoms. Achy right flank pain. Poor appetite as per patient. Witnessed syncopal event at home after patient tried to get out of bed. Patient denies headache. No weakness syncopal events. Initial SBP 70s upon arrival at the ER. MEDICAL HISTORY: As above. SURGERIES: She has had section, hernia repair, cataract surgery, cholecystectomy and mastectomy, right, breast biopsy. FAMILY HISTORY: DM, COPD, rheumatoid arthritis PERSONAL AND SOCIAL HISTORY: Nonsmoker. No chronic intake of alcoholic beverages. 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 Admission Exam Per Admitting Provider GENERAL: uncomfortable, no respiratory distress SKIN: Normal color, warm HEENT: [place] palpebral conjunctivae, no ptosis, dry buccal mucosa NECK : Supple, no tenderness CHEST : Decreased breath sounds, right chest wall tenderness HEART : RRR, no obvious murmurs ABDOMEN: Some distention, right flank tenderness EXTREMITIES : RUE swelling with minimal tenderness, no other conspicuous deformities noted NEUROLOGIC : Coherent, no facial asymmetry, no other gross focality Principal Diagnosis Sepsis Possible Pneumonia Abnormal blood culture Breast ca with mets Discharge Exam GENERAL: uncomfortable, no respiratory distress SKIN: Normal color, warm HEENT: [place] palpebral conjunctivae, no ptosis, dry buccal mucosa NECK : Supple, no tenderness CHEST : Decreased breath sounds, right chest wall tenderness HEART : RRR, no obvious murmurs ABDOMEN: Some distention, right flank tenderness EXTREMITIES : RUE swelling with minimal tenderness, no other conspicuous deformities noted NEUROLOGIC : Coherent, no facial asymmetry, no other gross focality Discharge Data Allergies Allergy/AdvReac Type Severity Reaction Status Date / Time Sulfa (Sulfonamide Allergy Verified 07/01/21 23:16 Antibiotics) Consultations 07/02/21 00:38 ED Decision to Admit Stat 07/02/21 02:10 Consult Palliative Care Routine Ordered Studies 07/01/21 22:36 US venous doppler UE RT Urgent 07/02/21 00:38 US arterial duplex UE RT Urgent 07/02/21 01:49 CT abd pelvis wo con Urgent CT humerus RT wo con Urgent CT humerus RT wo con HISTORY: 75 years-old Female RUE swelling ro abscess acute pain and swelling of the right upper extremity with limited range of motion COMPARISON: Chest radiograph of same day, radiographs of the right humerus 06/07/2021. TECHNIQUE: Multiple axial CT images of the right humerus were obtained without the use of IV contrast. A dose lowering technique was used consistent with the principals of EVAN. FINDINGS: Healed chronic mid diaphyseal fracture deformity of the right humerus with intact plate and screw fusion hardware. No evidence of hardware fracture or loosening. One of the fixation screws within the posterior aspect of the greater tuberosity extends through the posterior cortex on image 57 series 5. There is moderate glenohumeral with mild AC joint osteoarthritis. 6 mm corticated ossification adjacent to the coracoid process on image 65 series 6 is likely extra-articular. 1 tendons and ligaments are not well evaluated by MRI technique. There is diffuse subcutaneous and deep tissue edema of the chest wall and upper extremity. Small joint effusion suspected. No fluid collection. Subacute to chronic nondisplaced right-sided rib fractures. Layering right pleural effusion with groundglass opacities throughout the right lung. No acute fracture, dislocation or osseous erosion identified. IMPRESSION: 1. Healed chronic fracture deformity of the mid diaphyseal right humerus with intact plate and screw fusion hardware. 2. No acute fracture or dislocation. 3. Diffuse subcutaneous and deep tissue edema of the chest wall and imaged right upper extremity. No discrete fluid collection. 4. Subacute to chronic nondisplaced lateral right-sided rib fractures. 5. Layering right pleural effusion with groundglass densities throughout the right lung. ACT 112: Negative or not required by law. The above report was generated using voice recognition software. It may contain grammatical, syntax or spelling errors. Electronically signed by: Michael Medina M.D. 07/02/2021 8:15 AM Dictated: 07/02/21 08Transcribed: 07/02/[address] WITHOUT CONTRAST HISTORY: Acute bilateral flank pain flank pain TECHNIQUE: Multiaxial CT images of the abdomen and pelvis were performed without contrast. A dose lowering technique was utilized adhering to the principles of ALARA. COMPARISON STUDY: CT of the right humerus of same day, CT abdomen and pelvis 06/12/2021, 06/07/2021 FINDINGS: Layering right pleural effusion. Groundglass consolidative opacities of the right lung base with air bronchograms. These findings have progressively worsened from the 06/12/2021 exam. Trace left pleural effusion. Limited study secondary to upper extremity positioning the lack of contrast. Imaged inferior cardiac chambers are unremarkable. Subcentimeter nodular foci noted within the anterior epicardial tissues. Numerous scattered calcified fernández limit of the spleen. Atrophic pancreas. Multif ocal hepatic metastatic disease redemonstrated which generally appears stable from comparison. Cholecystectomy. Unremarkable right adrenal gland. Ill-defined soft tissue nodules in the retroperitoneal space inferior to it also possibly involving the left inferior gland redemonstrated suggestive of metastatic disease. Soft tissue thickening is also noted inferior to the right ureter gland adjacent to the IVC. Unremarkable kidneys. There is no hydronephrosis. Urinary bladder wall thickening with partial distention. Atrophic uterus with vascular calcifications. No adnexal mass lesion. Atherosclerosis of the aorta without aneurysm. Mild distal esophageal wall thickening. There is no bowel obstruction or bowel wall thickening. Mild fecal retention. Unremarkable appendix. Tiny fat filled periumbilical hernia. Right mastectomy with chronic normal thickening of the right chest wall with ill-defined subcutaneous nodules. There is diffuse body wall edema with asymmetric subcutaneous edema of the right upper extremity. Multifocal sclerotic metastatic disease. Subacute chronic appearing lateral right-sided rib fractures are unchanged. No acute fracture identified. IMPRESSION: 1. Small to moderate right pleural effusion with right basilar groundglass and consolidative opacities suggestive of pneumonia versus aspiration pneumonitis. 2. Multifocal hepatic metastatic disease redemonstrated along with sclerotic osseous metastasis. 3. Soft tissue thickening within the retroperitoneal space adjacent to the adrenal glands redemonstrated suggestive of probable metastasis. 4. No bowel obstruction or bowel wall thickening. 5. Right mastectomy with persistent soft tissue nodularity of the subcutaneous tissues of the right chest wall suspicious for metastasis. 6. Additional findings as above. ACT 112: Negative or not required by law. The above report was generated using voice recognition software. It may contain grammatical, syntax or spelling errors. Electronically signed by: Michael Medina M.D. 07/02/2021 8:35 AM Dictated: 07/02/21822Transcribed: 07/02/21822 RIGHT UPPER EXTREMITY ARTERIAL DOPPLER ULTRASOUND CLINICAL HISTORY: Right arm discoloration. COMPARISON STUDY: No previous studies for comparison. TECHNIQUE: Grayscale, color and duplex. Sonography of the arterial system of the right upper extremity was performed. FINDINGS: Evaluation is compromised given suboptimal visualization due to upper extremity edema. No occlusion within the right upper extremity is noted. No elevated velocities were identified. Monophasic flow within the right subclavian artery is noted. The peak systolic velocity is 152 cm/s. There is biphasic flow within the right axillary artery. There is biphasic and triphasic flow within the right brachial artery. Biphasic flow within the right radial and ulnar arteries is noted. IMPRESSION: 1. No arterial occlusion identified within the right upper extremity. No elevated velocities. 2. Monophasic flow within the right radial and ulnar arteries. An underlying stenosis of approximately 50% may be present. No evidence for high-grade stenosis. ACT 112: Negative or not required by law. Electronically signed by: Florentin Ware M.D. 07/02/2021 6:48 AM Dictated: 07/02/2144Transcribed: 07/02/21643 US venous doppler UE RT CLINICAL HISTORY: rue swelling COMPARISON STUDY: May 27, 2021 FINDINGS: No intraluminal thrombus was visualized. The right internal jugular, subclavian, axillary, cephalic, brachial, basilic, radial, and ulnar veins were patent. Soft tissue edema is again seen. IMPRESSION: No evidence of deep venous thrombosis within the right upper extremity.. ACT 112: Negative or not required by law. The above report was generated using voice recognition software. It may contain grammatical, syntax or spelling errors. Electronically signed by: Neha Cagle DO 07/02/2021 8:06 AM Dictated: 07/02/21 0804Transcribed: 07/02/21 0804 XR chest 1V portable CLINICAL HISTORY: Chest Pain COMPARISON STUDY: July 01, 2021 FINDINGS: No pneumothorax. Mild interval improvement/redistribution of the right pleural effusion. Right infrahilar opacity is slightly worsened since prior. There is also hazy opacity at the peripheral aspect of the right lung, appear slightly more conspicuous since prior. Cardiomediastinal silhouette is within normal limits in size. No significant pulmonary vascular congestion.. Aorta is calcified. Osseous structures: Osteopenia. Degenerative changes of the spine. Orthopedic hardware within right humerus is again noted. IMPRESSION: 1. Mild interval improvement/redistribution of the right pleural effusion however there is hazy opacity at the right lung which could represent layering pleural fluid versus worsening of pulmonary parenchymal process. 2. Atherosclerosis. 3. The rest of findings as above. ACT 112: Negative or not required by law. The above report was generated using voice recognition software. It may contain grammatical, syntax or spelling errors. Electronically signed by: Neha Cagle DO 07/02/2021 7:37 AM Dictated: 07/02/21733Transcribed: 07/02/21733 Hospital Course (1) Severe sepsis: Present on admission with SOB, weakness, syncopal episode and low BP Immunocompromised patient, chronic steroid Rx the last 2 weeks to stimulate appetite Possible related to HCAP CXR showed Mild interval improvement/redistribution of the right pleural effusion however there is hazy opacity at the right lung which could represent layering pleural fluid versus worsening of pulmonary parenchymal process. Was starting on Zosyn and Doxycycline Blood cx pending will like to take patient home, but I explained to her that blood cx pending Discussed with patient and about the risk by requesting to be discharged today since cx is pending Pt and said that they have appointment with hospice team since they would like to transition to hospice at home Pt and felt they would be more comfortable at home They understood the risk such as worsening infection, sepsis and even RUE swelling Possible related to cellulitis but need to r/o DVT Doppler of LE showed No evidence of deep venous thrombosis within the right upper extremity. Continue IV abx for now Hypotension Possible related to the acute illness resolved DM type 1 Insulin pump on hold during the hospital course Pharmacy on board for glycemic management History of breast cancer. Right status post surgery and radiation with pleural, liver, and bone mets on Anastrazole Recent malignant effusion based on cytology. ontinue fentanyl patch, oxycodone, Lidocaine patch Palliative care on board Pt is scheduled to meet with hospice Plan to transition to hospice P does not want to stay in the hospital DVT prophylaxis Heparin subcu DNR Patient requesting updates from providers. Mr. Sánchez Dwyer, contact #[phone]. By CMS guidelines, a determination that the admission or continued stay is not medically necessary has been made by a member of the UR committee and a physician for this hospital stay, therefore a Code 44 will be completed and the Inpatient admission will be changed to outpatient. Total Time Total Time Spent Total Time Spent (In Minutes): 35 minutes Discharge Plan Discharge Items Patient Disposition: Hospice - Home Reason For Visit: HYPOTENSION, SEPSIS Discharge Diagnosis: Sepsis Possible Pneumonia Abnormal blood culture Activity: Resume your previous activity Non-emergency contact: Primary Care Provider Call non-emergency contact if: you have any medication questions Follow-up/Referrals: Nel Garvin, [Outside Practitioners] - 07/07/21 11:00 am (Dr. Virgen is unavailable. Please follow up with Dr. Garvin on Monday07/07/21 at 11:00 am. Please arrive to the office at 10:45 am for your appointment. If you are unable to keep this appointment, please call the office to reschedule at [phone]) Omar Virgen MD [Primary Care Provider] - (Dr. Virgen is unavailable.) Diet: Carb Count or DM1 Diet Texture: Easy to Chew Addtl Attending Provider Instructions: Discharge home with home hospice Your repeat blood culture pending, but since you and your family would like you to go home, we will call you for the final blood culture result Your renal function declined as well with creatinine above 2. you will need to keep yourself hydrate Follow up with your primary care provider Fall precaution Seek medial help if you develop any fever Continue monitor your blood sugar Pending Studies at Discharge: Yes Studies:: blood culture Stand-Alone Forms: [facility] Medications and DC Order Prescriptions: New lidocaine 5 % Adhesive Patch,Medicated 1 patch transdermal QAM Qty: 10 RF: 0 oxycodone 5 mg Tablet 2.5 - 5 mg PO Q6H PRN (Reason: severe pain (scale score 7-10)) Qty: 10 RF: 0 Continued Humalog U-100 Insulin 100 unit/mL Cartridge 1 sliding scale dose continuous subcutaneous infusion UD Qty: 0 RF: 0 folic acid 1 mg Tablet 1 mg PO QAM Qty: 0 RF: 0 levothyroxine 100 mcg tablet 100 mcg PO QAM 90 Days Qty: 90 RF: 3 prednisone 10 mg tablet 10 mg PO DAILY RF: 0 anastrozole 1 mg tablet 1 mg PO DAILY RF: 0 fentanyl 12 mcg/hr patch 72 hour 1 patch transdermal Q72H RF: 0 tramadol 50 mg Tablet 50 mg PO Q6H PRN (Reason: Moderate or severe pain) Qty: 60 RF: 0 ondansetron HCl 8 mg tablet 8 mg PO DAILY PRN (Reason: Nausea) RF: 0 cholecalciferol (vitamin D3) 125 mcg (5,000 unit) Tablet 125 mcg PO DAILY RF: 0 docusate sodium [Colace] 100 mg Capsule 100 mg PO BID RF: 0 Discharge Orders: Discharge Order (Routine); Ordered 07/03/21 Ordered By: Fernando Lozoya Admission Data Admit Date/Time: 07/02/21 02:04 Attending Provider: Fernando Lozoya Admit Provider: Fernando Lozoya Primary Care Provider: Omar Virgen Other Providers: Gurdeep Hardy ; Shannon Trujillo ; [facility] Other Interventions: Discharge Summary Assessment (RN) Last Done: 07/03/21 13:46
== END 2021-07-03 14:44 | disposition hospice, home (50) ==
LOC: ED 21:24 → SUATTDRO 07-02 02:04 → 2S 07-02 02:04 → INTOOBSV 07-02 02:04 → 2S 07-02 03:45